=== PATIENT | female | born 1945 | race Caucasian/White ===

== ENCOUNTER 2018-02-09 10:52 | Emergency (ER) | payer MEDICARE, OTHER ==
[~2018-02-09] VITALS: Ht 157.5 cm; Wt 74.8 kg
[~2018-02-09 10:52] MED LIST: ASPIR 8181 MG PO; ATORVASTATIN CA20 MG PO; BENICAR20 MG PO; CHLORZOXAZONE500 MG PO; CYMBALTA60 MG PO; DEXILANT60 MG PO; FUROSEMIDE20 MG PO; LEVOTHYROXINE112 MCG PO; LYRICA200 MG PO; NORCO 10-325 T1 EACH PO; OS-CAL 500+D T1 EACH PO; PROAIR HFA INH8.5 GM INH; SINGULAIR10 MG PO; SYMBICORT 16010.2 GM INH; TRICOR145 MG PO; VITAMIN B-122000 MCG PO; VITAMIN D-32000 UNIT PO
--- OUTSIDE RECORDS SUMMARY | 2018-02-09 10:55 | XMS REPORT ---
Author Author [facility] Address Unknown Phone Unavailable Care Team Providers Care House Painter Name Role Phone AMELIA WILD Unavailable Unavailable Problems This patient has no known problems. Allergies, Adverse Reactions, Alerts This patient has no known allergies or adverse reactions. Medications This patient has no known medications. Results Test Description Test Time Test Comments Text Results Atomic Results Result Comments BASIC METABOLIC PANEL 2017-02-14 16:32:00 SODIUM (BEAKER) (test yfzt=495) 140 meq/L 136-145 POTASSIUM (BEAKER) (test huuh=731) 4.1 meq/L 3.5-5.1 Specimen slightly hemolyzed CHLORIDE (BEAKER) (test zpcz=515) 97 meq/L 98-107 CO2 (BEAKER) (test ajxh=080) 31 meq/L 22-29 BLOOD UREA NITROGEN (BEAKER) (test xqll=205) 43 mg/dL 7-21 CREATININE (BEAKER) (test hofp=731) 1.15 mg/dL 0.57-1.25 Specimen slightly hemolyzed GLUCOSE RANDOM (BEAKER) (test skas=966) 86 mg/dL 70-105 CALCIUM (BEAKER) (test cehu=859) 9.5 mg/dL 8.4-10.2 EGFR (BEAKER) (test mkbd=0344) 46 mL/min/1.73 sq m ESTIMATED GFR IS NOT ACCURATE CREATININE CLEARANCE IN PREDICTING GLOMERULAR FILTRATION RATE. ESTIMATED GFR IS NOT APPLICABLE FOR DIALYSIS PATIENTS. [id number] 15:39:00* Test Item Value Reference Range Comments HEMOGLOBIN (BEAKER) (test juxf=342) 12.3 GM/DL 12.0-15.0
--- OUTSIDE RECORDS SUMMARY | 2018-02-09 10:55 | XMS REPORT | Clinical Summary ---
Author Author [facility] Address Unknown Phone Unavailable Care Team Providers Care Dental Laboratory Manager Name Role Phone PCP Unavailable Allergies Active Allergy Reactions Severity Noted Date Comments Levofloxacin Rash, Other (See High 09/08/2013 Difficulty breathing Comments) Iodine And Iodide Rash Low 09/08/2013 Rash , hives Containing Products Current Medications Prescription Sig. Disp. Refills Start End Date Status Date aspirin 81 MG chewable Take 81 mg by mouth Active tablet nightly . atorvastatin (LIPITOR) 10 Take 20 mg by mouth Active MG tablet nightly . levothyroxine (SYNTHROID, Take 100 mcg by mouth Active LEVOTHROID) 112 MCG nightly . tablet SYMBICORT 160-4.5 Inhale 2 puffs by mouth 08/18/20 Active mcg/actuation inhaler via inhaler 2 (two) times 13 daily . dexlansoprazole 60 mg Take 60 mg by mouth Active capsule nightly . furosemide (LASIX) 20 MG Take 40 mg by mouth Active tablet nightly . albuterol HFA (VENTOLIN Inhale 1 puff by mouth Active HFA) 90 mcg/actuation via inhaler every 6 (six) inhaler hours as needed for Wheezing. rOPINIRole (REQUIP) 2 MG Take 4 mg by mouth Active tablet nightly . fluticasone (FLONASE) 50 2 sprays by Nasal route Active mcg/actuation nasal spray nightly . pregabalin (LYRICA) 200 Take 200 mg by mouth 2 Active MG capsule (two) times daily. CARISOPRODOL (SOMA ORAL) Take 1 tablet by mouth 2 Active (two) times daily . DOCUSATE CALCIUM (STOOL Take 1 capsule by mouth Active SOFTENER ORAL) as needed . cholecalciferol, vitamin Take 5,000 Units by mouth Active D3, 5,000 unit Tab once a week Every Friday . cholecalciferol, vitamin Take 2,000 Units by mouth Active D3, 2,000 unit Tab nightly. valsartan (DIOVAN) 160 MG Take 160 mg by mouth Active tablet nightly. HYDROcodone-acetaminophen Take 2 tablets by mouth Active (NORCO 10-325) 10-325 mg as needed for Pain. per tablet calcium carbonate-vitamin Take 1 tablet by mouth 2 02/15/20 Discontin D3 (CALCIUM-VITAMIN D) (two) times daily with 17 ued 500 mg(1,250mg) -200 unit breakfast and dinner. per tablet olmesartan (BENICAR) 20 Take 20 mg by mouth daily 02/15/20 Discontin MG tablet . 17 ued cyanocobalamin 2000 MCG Take 2,000 mcg by mouth 02/15/20 Discontin tablet daily. 17 ued predniSONE (DELTASONE) 10 Take 30mg for 3 days, 18 tablet 0 01/06/20 02/15/20 Discontin MG tablet 20mg for 3 days, then 16 17 ued 10mg for 3 days then stop. Active Problems Problem Noted Date Degenerative joint disease of thumb 02/17/2017 Cubital tunnel syndrome on left 02/17/2017 Acute carpal tunnel syndrome of left wrist 02/17/2017 Trigger finger of right hand 09/09/2016 Disorientation 01/02/2016 Asthma exacerbation 09/08/2013 Overview: GERD Hypothyroidism Encounters Date Type Specialty Care Team Description 04/04/2017 Refill Transplant Sydnie Phoenix MD 02/17/2017 Hospital Oscar Keane MD Encounter 02/17/2017 Procedure Pass 02/17/2017 Surgery Oscar Keane MD RELEASE,CARPAL TUNNEL 02/14/2017 [facility] Pre-Admission Testing Oscar Keane MD Asthma exacerbation Encounter 02/14/2017 Anesthesia Staci Mendieta MD Event 02/14/2017 Orders Only General Internal Medicine after 02/08/2017 Family History Medical History Relation Name Comments Depression Father Heart disease Father Hypertension Father Stroke Father Cancer Maternal Grandmother Heart disease Maternal Grandmother Cancer Mother Depression Mother Diabetes Mother Heart disease Mother Hypertension Mother Mental illness Paternal Grandfather COPD Sister Asthma Son Hypertension Son Relation Name Status Comments Father Maternal Grandmother Mother Paternal Grandfather Sister Son Social History Tobacco Use Types Packs/Day Years Used Date Never Smoker Smokeless Tobacco: Never Used Alcohol Use Drinks/Week oz/Week Comments No Sex Assigned at Date Recorded Not on file Last Filed Vital Signs Vital Sign Reading Time Taken Blood Pressure 139/60 02/17/2017 10:34 AM CDT Pulse 74 02/17/2017 10:34 AM CDT Temperature 36.7 C (98.1 F) 02/17/2017 10:49 AM CDT Respiratory Rate 16 02/17/2017 10:49 AM CDT Oxygen Saturation 93% 02/17/2017 10:49 AM CDT Inhaled Oxygen - - Concentration Weight 78.8 kg (173 lb 11.2 oz) 02/17/2017 6:17 AM CDT Height 157.5 cm (5' 2") 02/17/2017 6:17 AM CDT Body Mass Index 31.77 02/17/2017 6:17 AM CDT Plan of Treatment Not on file Procedures Procedure Name Priority Date/Time Associated Diagnosis Comments RELEASE,CUBITAL TUNNEL 02/17/2017 Carpal tunnel syndrome, 8:00 AM CDT left INJECTION,THERAPEUTIC 02/17/2017 Carpal tunnel syndrome, CARPAL TUNNEL 8:00 AM CDT left RELEASE,CARPAL TUNNEL 02/17/2017 Carpal tunnel syndrome, 8:00 AM CDT left after 02/08/2017 Results * Hemoglobin (02/14/2017 3:08 PM) Component Value Ref Range Hemoglobin 12.3 12.0 - 15.0 GM/DL Specimen Performing [place] [address] * ECG 12 lead (02/14/2017 3:07 PM) Specimen Performing Laboratory GE MUSE Narrative Ventricular Rate 73 BPM Atrial Rate 73 BPM P-R Interval 162 ms QRS Duration 88 ms Q-T Interval 418 ms QTC Calculation(Bazett) 460 ms P Sweeny 19 degrees R Sweeny -11 degrees T Sweeny 15 degrees Sinus rhythm with Premature atrial complexes with Aberrant conduction Minimal voltage criteria for LVH, may be normal variant Nonspecific ST and T wave abnormality Borderline ECG When compared with ECG of 02-JAN-2016 15:35, No significant change was found Confirmed by MD GENEVIEVE, GLORIA ([id number]) on 02/14/2017 5:21:27 PM Procedure Note Interface, External Ris In - 02/14/2017 5:21 PM CDT Ventricular Rate 73 BPM Atrial Rate 73 BPM P-R Interval 162 ms QRS Duration 88 ms Q-T Interval 418 ms QTC Calculation(Bazett) 460 ms P Sweeny 19 degrees R Sweeny -11 degrees T Sweeny 15 degrees Sinus rhythm with Premature atrial complexes with Aberrant conduction Minimal voltage criteria for LVH, may be normal variant Nonspecific ST and T wave abnormality Borderline ECG When compared with ECG of 02-JAN-2016 15:35, No significant change was found Confirmed by MD GENEVIEVE, GLORIA ([id number]) on 02/14/2017 5:21:27 PM * Basic Metabolic Panel (02/14/2017 3:07 PM) Component Value Ref Range Sodium 140 136 - 145 meq/L Potassium 4.1Comment: Specimen slightly hemolyzed 3.5 - 5.1 meq/L Chloride 97 (L) 98 - 107 meq/L CO2 31 (H) 22 - 29 meq/L BUN 43 (H) 7 - 21 mg/dL Creatinine 1.15Comment: Specimen slightly hemolyzed 0.57 - 1.25 mg/dL Glucose 86 70 - 105 mg/dL Calcium 9.5 8.4 - 10.2 mg/dL EGFR 46Comment: ESTIMATED GFR IS NOT ACCURATE mL/min/1.73 sq m CREATININE CLEARANCE IN PREDICTING GLOMERULAR FILTRATION RATE. ESTIMATED GFR IS NOT APPLICABLE FOR DIALYSIS PATIENTS. Specimen Performing Laboratory Blood [facility] [address] [address] after 02/08/2017
[2018-02-09] MEDS ORDERED: DEXAMETHASONE SOD PHOS 10 MG/1 ML VIAL INJ ONE (11:30)
[2018-02-09] MEDS ORDERED: HYDROCODONE/APAP 10MG-325MG TAB PO ONE (11:30)
[2018-02-09] MEDS ORDERED: KETOROLAC TROMETHAMINE 60 MG/2 ML VIAL IM ONE (11:30)
[2018-02-09] MEDS ORDERED: KETOROLAC TROMETHAMINE 60 MG/2 ML VIAL ONE ×2 (14:51→14:57)
[2018-02-09] MEDS ORDERED: HYDROCODONE/APAP 10MG-325MG TAB ONE ×2 (14:51→14:58)
[2018-02-09] MEDS ORDERED: DEXAMETHASONE SOD PHOS 10 MG/1 ML VIAL ONE ×2 (14:51→14:58)
== END 2018-02-09 15:25 | disposition home or self-care (01) ==
LOC: ER 10:52
DX: M54.42 Lumbago with sciatica, left side (principal); I10 Essential (primary) hypertension; J45.909 Unspecified asthma, uncomplicated; G89.29 Other chronic pain
CPT/HCPCS: 99282; J1100; J1885

== ENCOUNTER 2019-02-04 19:53 | Emergency (ER) | payer MEDICARE, OTHER ==
[~2019-02-04] VITALS: Ht 157.5 cm; Wt 75.3 kg
--- OUTSIDE RECORDS SUMMARY | 2019-02-04 19:57 | XMS REPORT | Clinical Summary ---
Author Author [facility] Address Unknown Phone Unavailable Care Team Providers Care Multiple Resaw Operator Name Role Phone Javy Gonzalez MD PCP Allergies Comments Active Allergy Reactions Severity Noted Date Iodine Hives 08/11/2018 Levofloxacin Shortness Of High 08/11/2018 Breath Medications End Date Status Medication Sig Dispensed Refills Start Date 09/24/2018 atorvastatin (LIPITOR) 20 Take 1 tablet 30 tablet 0 MG tablet (20 mg total) 8 by mouth nightly for 30 days. 08/27/2018 cefpodoxime (VANTIN) 200 Take 1 tablet 4 tablet 0 MG tablet (200 mg 8 total) by mouth 2 (two) times a day for 2 days. 09/24/2018 cyanocobalamin (VITAMIN Take 1 tablet 30 tablet 0 B-12) 1000 MCG tablet (1,000 mcg 8 total) by mouth daily for 30 days. 09/24/2018 docusate sodium (COLACE) Take 1 30 capsule 0 100 MG capsule capsule (100 8 mg total) by mouth daily for 30 days. 09/24/2018 DULoxetine (CYMBALTA) 60 Take 1 30 capsule 0 MG capsule capsule (60 8 mg total) by mouth daily for 30 days. 09/24/2018 fenofibrate (LOFIBRA) 160 Take 1 tablet 30 tablet 0 MG tablet (160 mg 8 total) by mouth daily for 30 days. 09/24/2018 ferrous sulfate 325 (65 Take 1 tablet 60 tablet 0 FE) MG tablet (325 mg 8 total) by mouth 2 (two) times a day with meals for 30 days. 09/24/2018 fluticasone (FLONASE) 50 2 sprays (100 15.8 mL 0 mcg/actuation nasal spray mcg total) by 8 Each Nare route daily as needed for rhinitis for up to 30 days. 09/24/2018 furosemide (LASIX) 20 mg Take 3 180 tablet 0 tablet tablets (60 8 mg total) by mouth 2 (two) times a day for 30 days. 09/25/2018 levothyroxine (SYNTHROID, Take 1 tablet 30 tablet 0 LEVOXYL) 100 mcg tablet (100 mcg 8 total) by mouth daily for 30 days. 09/24/2018 montelukast (SINGULAIR) Take 1 tablet 30 tablet 0 10 mg tablet (10 mg total) 8 by mouth nightly for 30 days. 09/25/2018 pantoprazole (PROTONIX) Take 1 tablet 30 tablet 0 40 MG EC tablet (40 mg total) 8 by mouth daily for 30 days. 09/24/2018 pregabalin (LYRICA) 200 Take 1 60 capsule 0 MG capsule capsule (200 8 mg total) by mouth 2 (two) times a day for 30 days. 09/24/2018 rOPINIRole (REQUIP) 4 MG Take 1 tablet 30 tablet 0 tablet (4 mg total) 8 by mouth nightly for 30 days. 09/24/2018 sennosides-docusate Take 2 60 tablet 0 sodium (SENNA WITH tablets by 8 DOCUSATE SODIUM) 8.6-50 mouth nightly mg per tablet as needed for constipation for up to 30 days. 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 Never 08/11/2018 How many drinks containing alcohol do you have on Not asked a typical day when you are drinking? How often do you have six or more drinks on one Not asked occasion? Sex Assigned at Date Recorded Not on file Industry Job Start Date Occupation Not on file Not on file Not on file Travel End Travel History Travel Start No recent travel history available. Last Filed Vital Signs Time Taken Vital Sign Reading 08/25/2018 7:21 AM ION IMPLANT MACHINE OPERATOR Blood Pressure 117/59 08/25/2018 7:21 AM ION IMPLANT MACHINE OPERATOR Pulse 68 08/25/2018 7:21 AM ION IMPLANT MACHINE OPERATOR Temperature 37 C (98.6 F) 08/25/2018 7:21 AM ION IMPLANT MACHINE OPERATOR Respiratory Rate 20 08/25/2018 7:21 AM ION IMPLANT MACHINE OPERATOR Oxygen Saturation 97% - Inhaled Oxygen - Concentration 08/11/2018 5:32 PM ION IMPLANT MACHINE OPERATOR Weight 75.8 kg (167 lb) 08/11/2018 5:32 PM ION IMPLANT MACHINE OPERATOR Height 157.5 cm (5' 2") 08/11/2018 5:32 PM ION IMPLANT MACHINE OPERATOR Body Mass Index 30.54 Plan of Treatment Health Maintenance Due Date Last Done Comments BREAST CANCER SCREENING 1994 COLON CANCER SCREENING 1994 SHINGLES VACCINES (#1) 1994 65+ PNEUMOCOCCAL VACCINE 2009 07/09/2016 (2 of 2 - PPSV23) INFLUENZA VACCINE 04/29/2019 PNEUMOCOCCAL Completed 07/09/2016 POLYSACCHARIDE VACCINE AGE 65 AND OVER Procedures Comments Procedure Name Priority Date/Time Associated Diagnosis ESTIMATED GFR Routine 08/25/2018 5:30 AM ION IMPLANT MACHINE OPERATOR THYROID STIMULATING Routine 08/25/2018 HORMONE 5:30 AM ION IMPLANT MACHINE OPERATOR T4, FREE Routine 08/25/2018 5:30 AM ION IMPLANT MACHINE OPERATOR T3, FREE Routine 08/25/2018 5:30 AM ION IMPLANT MACHINE OPERATOR BASIC METABOLIC PANEL Routine 08/25/2018 5:30 AM ION IMPLANT MACHINE OPERATOR ESTIMATED GFR Timed 08/24/2018 4:55 AM ION IMPLANT MACHINE OPERATOR HC COMPLETE BLD COUNT Timed 08/24/2018 W/AUTO DIFF 4:55 AM ION IMPLANT MACHINE OPERATOR BASIC METABOLIC PANEL Timed 08/24/2018 4:55 AM ION IMPLANT MACHINE OPERATOR ESTIMATED GFR Routine 08/23/2018 5:05 AM ION IMPLANT MACHINE OPERATOR MAGNESIUM LEVEL Routine 08/23/2018 5:05 AM ION IMPLANT MACHINE OPERATOR BASIC METABOLIC PANEL Routine 08/23/2018 5:05 AM ION IMPLANT MACHINE OPERATOR ESTIMATED GFR Routine 08/22/2018 4:48 AM ION IMPLANT MACHINE OPERATOR HC COMPLETE BLD COUNT Routine 08/22/2018 W/AUTO DIFF 4:48 AM ION IMPLANT MACHINE OPERATOR BASIC METABOLIC PANEL Routine 08/22/2018 4:48 AM ION IMPLANT MACHINE OPERATOR ESTIMATED GFR Routine 08/20/2018 5:00 AM ION IMPLANT MACHINE OPERATOR HEPATIC FUNCTION PANEL Routine 08/20/2018 5:00 AM ION IMPLANT MACHINE OPERATOR HC COMPLETE BLD COUNT Routine 08/20/2018 W/AUTO DIFF 5:00 AM ION IMPLANT MACHINE OPERATOR BASIC METABOLIC PANEL Routine 08/20/2018 5:00 AM ION IMPLANT MACHINE OPERATOR ESTIMATED GFR Timed 08/17/2018 4:42 AM ION IMPLANT MACHINE OPERATOR MAGNESIUM LEVEL Timed 08/17/2018 4:42 AM ION IMPLANT MACHINE OPERATOR HC COMPLETE BLD COUNT Timed 08/17/2018 W/AUTO DIFF 4:42 AM ION IMPLANT MACHINE OPERATOR BASIC METABOLIC PANEL Timed 08/17/2018 4:42 AM ION IMPLANT MACHINE OPERATOR ESTIMATED GFR Routine 08/16/2018 5:10 AM ION IMPLANT MACHINE OPERATOR HEPATIC FUNCTION PANEL Routine 08/16/2018 5:10 AM ION IMPLANT MACHINE OPERATOR HC COMPLETE BLD COUNT Routine 08/16/2018 W/AUTO DIFF 5:10 AM ION IMPLANT MACHINE OPERATOR BASIC METABOLIC PANEL Routine 08/16/2018 5:10 AM ION IMPLANT MACHINE OPERATOR HC COMPLETE BLD COUNT Routine 08/13/2018 W/AUTO DIFF 5:40 AM ION IMPLANT MACHINE OPERATOR TOTAL IRON BINDING Routine 08/13/2018 CAPACITY 5:40 AM ION IMPLANT MACHINE OPERATOR FERRITIN LEVEL Routine 08/13/2018 5:40 AM ION IMPLANT MACHINE OPERATOR VITAMIN B12 LEVEL Routine 08/13/2018 5:40 AM ION IMPLANT MACHINE OPERATOR THYROID STIMULATING Routine 08/13/2018 HORMONE 5:40 AM ION IMPLANT MACHINE OPERATOR T4, FREE Routine 08/13/2018 5:40 AM ION IMPLANT MACHINE OPERATOR T3, FREE Routine 08/13/2018 5:40 AM ION IMPLANT MACHINE OPERATOR MAGNESIUM LEVEL Routine 08/13/2018 5:40 AM ION IMPLANT MACHINE OPERATOR ESTIMATED GFR Routine 08/12/2018 4:47 AM ION IMPLANT MACHINE OPERATOR HC COMPLETE BLD COUNT Routine 08/12/2018 W/AUTO DIFF 4:47 AM ION IMPLANT MACHINE OPERATOR BASIC METABOLIC PANEL Routine 08/12/2018 4:47 AM ION IMPLANT MACHINE OPERATOR after 02/03/2018 Results * Estimated GFR (08/25/2018 5:30 AM ION IMPLANT MACHINE OPERATOR) Only the most recent of 8 results within the time period is included. Estimated GFR 49 (A) mL/min/1.73 m2 [facility] Comment: [facility] CatergoryUnitsInte rpretation G1 >=90 Normal or high G2 60-89Mildly decreased [id number] Mildly to moderately decreased [id number] Moderately to severely decreased G4 15-29Severely decreased G5 <15Kidney failure The eGFR was calculated using the Chronic Kidney Disease Epidemiology Collaboration (CKD-EPI) equation. Interpretation is based on recommendations of the National Kidney Foundation-Kidney Disease Outcomes Quality Initiative (NKF-KDOQI) published in 2014. Specimen Plasma specimen Performing Organization Address City/State/Zipcode Phone Number [facility] [address] [place] [address] PATHOLOGY AND GENOMIC MEDICINE [place] [id number] [place] * T3, free (08/25/2018 5:30 AM ION IMPLANT MACHINE OPERATOR) Only the most recent of 2 results within the time period is included. T3, free 1.83 (L) 2.18 - 3.98 pmol/L [facility] Specimen Plasma specimen Performing Organization Address City/[facility] Phone Number [facility] DEPARTMENT OF [address] [facility] [place] [address] PATHOLOGY AND GENOMIC MEDICINE [address] * Thyroid stimulating hormone (08/25/2018 5:30 AM ION IMPLANT MACHINE OPERATOR) Only the most recent of 2 results within the time period is included. TSH 0.55 0.27 - 4.20 uIU/mL [facility] Specimen Plasma specimen Performing Organization Address [facility] Phone Number [address] [place] [address] PATHOLOGY AND GENOMIC MEDICINE [address] * T4, free (08/25/2018 5:30 AM ION IMPLANT MACHINE OPERATOR) Only the most recent of 2 results within the time period is included. T4, free 1.67 0.90 - 1.70 ng/dL [facility] Specimen Plasma specimen Performing Organization Address [facility] Phone Number [address] [place] [address] PATHOLOGY AND GENOMIC MEDICINE [address] * Basic metabolic panel (08/25/2018 5:30 AM ION IMPLANT MACHINE OPERATOR) Only the most recent of 8 results within the time period is included. Sodium 140 135 - 150 mEq/L [facility] Potassium 3.8 3.5 - 5.0 mEq/L [facility] Chloride 92 (L) 98 - 112 mEq/L [facility] CO2 33 (H) 24 - 31 mmol/L [facility] Anion gap 15@ANIO 7 - 15 mEq/L [facility] BUN 36 (H) 7 - 18 mg/dL [facility] Creatinine 1.10 (H) 0.50 - 0.90 mg/dL [facility] Glucose 74 65 - 100 mg/dL [facility] Calcium 9.2 8.8 - 10.2 mg/dL [facility] Specimen Plasma specimen Performing Organization Address City/State/Zipcode Phone Number [facility] DEPARTMENT OF [address] [place] [address] PATHOLOGY AND GENOMIC MEDICINE [facility] [address] [place], [place] [id number] [place] [address] * CBC with platelet and differential (08/24/2018 4:55 AM ION IMPLANT MACHINE OPERATOR) Only the most recent of 7 results within the time period is included. WBC 6.6 4.2 - 11.0 k/uL [facility] RBC 4.05 4.04 - 5.86 m/uL [facility] HGB 9.7 (L) 11.5 - 15.3 g/dL [facility] HCT 32.4 (L) 34.0 - 45.0 % [facility] MCV 80.0 80.0 - 98.0 fL [facility] MCH 24.0 (L) 27.0 - 34.0 pg [facility] MCHC 29.9 (L) 31.5 - 36.5 g/dL [facility] RDW - SD 58.4 (H) 37.0 - 51.0 fL [facility] MPV 11.5 (H) 7.4 - 10.4 fL [facility] Platelet count 253 150 - 400 k/uL [facility] Nucleated RBC 0.00 /100 WBC [facility] Neutrophils 50.3 36.0 - 66.0 % [facility] Lymphocytes 35.3 24.0 - 44.0 % [facility] Monocytes 9.7 (H) 0.0 - 6.0 % [facility] Eosinophils 3.5 0.0 - 6.0 % [facility] Basophils 0.6 0.0 - 1.2 % [facility] Immature granulocytes 0.6 0.0 - 1.0 % [facility] Specimen Blood Performing Organization Address City/[facility] Cent[facility] Phone Number [facility] DEPARTMENT OF [address] [place] [address] PATHOLOGY AND GENOMIC MEDICINE [facility] [address] * Magnesium level (08/23/2018 5:05 AM ION IMPLANT MACHINE OPERATOR) Only the most recent of 3 results within the time period is included. Magnesium 1.90 1.60 - 2.40 mg/dL [facility] Specimen Plasma specimen Performing Organization Address City/[facility] Phone Number [place] [address] [place] [address] PATHOLOGY AND [facility] MEDICINE [place] [address] [address] * Hepatic function panel (08/20/2018 5:00 AM ION IMPLANT MACHINE OPERATOR) Only the most recent of 2 results within the time period is included. Albumin 3.4 (L) 3.5 - 5.0 g/dL [facility] Total bilirubin 0.3 0.2 - 1.2 mg/dL [facility] Bilirubin direct <0.2 0.0 - 0.4 mg/dL [facility] Alkaline phosphatase 59 0 - 104 U/L [facility] Protein 7.3 6.3 - 8.3 g/dL [facility] ALT 12 5 - 50 U/L [facility] AST 22 10 - 35 U/L [facility] Specimen Plasma specimen Performing Organization Address City/[facility]/Zipcode Phone Number [facility] DEPARTMENT [place] [address] [place] [address] PATHOLOGY AND [facility] MEDICINE [place] [address] [address] * Total iron binding capacity (08/13/2018 5:40 AM ION IMPLANT MACHINE OPERATOR) Iron level 34 (L) 37 - 148 ug/dL [facility] Iron binding capacity 444 271 - 474 ug/dL [facility] % Saturation 7.7 (L) 15.0 - 38.0 % [facility] Specimen Plasma specimen Performing Organization Address City/State/Zipcode Phone Number [facility] DEPARTMENT OF [address] [place] [phone] PATHOLOGY AND GENOMIC MEDICINE [facility] [address] * Ferritin level (08/13/2018 5:40 AM ION IMPLANT MACHINE OPERATOR) Ferritin level 40 13 - 150 ng/mL [facility] Specimen Serum Performing Organization Address City/[facility] Cent[facility]ode Phone Number [facility] DEPARTMENT [address] [place] [address] PATHOLOGY AND GENOMIC MEDICINE [place] [phone] * Vitamin B12 level (08/13/2018 5:40 AM ION IMPLANT MACHINE OPERATOR) Vitamin B12 249 231 - 931 pg/mL [facility] Comment: [facility] Significant overlap exists between normal and deficiency states. However, most patients with deficiencies will have Serum B12 <200 pg/mL. Specimen Serum Performing Organization Address City/[facility] Centercode Phone Number [facility] DEPARTMENT [address] [place] [phone] PATHOLOGY AND GENOMIC MEDICINE [address] after 02/03/2018 Insurance Payer Benefit Subscriber ID Type Phone Address Plan / Group MEDICARE MEDICARE xxxxxxxxxx Medicare [place] PART A AND B [employer] xxxxxxxxxx Commercial [employer] [place] Advance Directives Patient has advance care planning documents on file. For more information, jose e contact: [facility] [address] [place] [address]
--- OUTSIDE RECORDS SUMMARY | 2019-02-04 19:57 | XMS REPORT | Continuity of Care Document ---
Author Author [facility] Interface Address Unknown Phone Unavailable Problems Problem Status Onset Date Classification Date Reported Comments Source Medications Medication Details Route Status Patient Instructions Ordering Provider Order Date Source Albuterol Sulfate (Proair Hfa Inhaler*) 8.5 Gm Inh Every 6 Hours [facility] Aspirin (Aspir 81) 81 Mg Tablet.dr Weiner [facility] Atorvastatin Calcium 20 Mg Tablet Daily [facility] Budesonide/Formoterol Fumarate (Symbicort 160-4.5 Mcg Inhaler) 10.2 Gm Hfa.aer.ad Twice A Day [facility] Calcium Carbonate/Vitamin D3 (Os-Rosendo 500+D Tablet) 1 Each Tablet Bedtime [facility] Chlorzoxazone 500 Mg Tablet As Needed [facility] Cholecalciferol (Vitamin D3) (Vitamin D-3) 2,000 Unit Capsule Daily [facility] Cyanocobalamin (Vitamin B-12) (Vitamin B-12) 2,000 Mcg Tablet.er Daily [facility] Dexlansoprazole (Dexilant) 60 Mg Cap. Daily Active THERAPEUTIC INTERCHANGE WITH PROTONIX PER [facility] Duloxetine Hcl (Cymbalta) 60 Mg Capsule.dr Weiner [facility] Fenofibrate (Tricor) 145 Mg Tab Bedtime [facility] Furosemide 20 Mg Tablet Daily [facility] Hydrocodone Bit/Acetaminophen ([place] 10-325 Tablet) 1 Each Tablet Every 6 Hours [facility] Levothyroxine Sodium 112 Mcg Tablet Daily [facility] Montelukast Sodium (Singulair) 10 Mg Tablet Bedtime Active [facility] Olmesartan Medoxomil (Benicar) 20 Mg Tablet Bedtime Active [facility] Pregabalin (Lyrica) 200 Mg Capsule Three Times A Day Active [facility] Allergies, Adverse Reactions, Alerts Substance Category Reaction Severity Reaction type Status Date Reported Comments Source iodine SWELLING/HIVES Allergy to Substance Active 05/03/2015 [facility] Immunizations Immunization Date Given Site Status Last Updated Comments Source Results Order Name Results Value Reference Range Date Interpretation Comments Source Vital Signs Vital Sign Value Date Comments Source Encounters Location Location Details Encounter Type Encounter Number Reason For Visit Attending Provider ADM Date DC Date Status Source Departed Emergency Room [id number] CIELO RYAN MD 02/09/2018 02/09/2018 [facility] Procedures Procedure Code Date Perfomer Comments Source
--- NOTE | 2019-02-04 20:16 | NUR ---
DR DEMETRIO CROSS OFFICE
[2019-02-04 20:21] LABS: BASOPHILS % 0.5 % (0.0-1.0); EOSINOPHILS # (AUTO) 0.3 (0.0-0.4); EOSINOPHILS % 4.3 % (0.0-6.0); HEMATOCRIT 26.6 % (34.2-44.1); HEMOGLOBIN 8.5 g/dL (12.0-16.0); LYMPHOCYTES # (AUTO) 1.3 (1.0-3.2); LYMPHOCYTES % 16.5 % (18.0-39.1); MEAN CORPUSCULAR HEMOGLOBIN 28.1 pg (28-32); MEAN CORPUSCULAR VOLUME 87.8 fL (81-99); MONOCYTES # (AUTO) 0.7 (0.2-0.8); MONOCYTES % 8.9 % (4.4-11.3); NEUTROPHILS # (AUTO) 5.4 (2.1-6.9); NEUTROPHILS % 68.9 % (38.7-80.0); PLATELET COUNT 370 x10e3/uL (140-360); RED BLOOD COUNT 3.03 x10e6/uL (3.6-5.1); RED CELL DISTRIBUTION WIDTH 20.4 % (11.7-14.4)
[2019-02-04 20:33] LABS: INR 0.88; PROTHROMBIN TIME 12.4 seconds (11.9-14.5)
[2019-02-04 20:34] LABS: PARTIAL THROMBOPLASTIN TIME 33.2 seconds (23.8-35.5)
[2019-02-04 20:43] LABS: ALANINE AMINOTRANSFERASE 11 IU/L (0-55); ALBUMIN 2.9 g/dL (3.5-5.0); ALBUMIN/GLOBULIN RATIO 0.9 (0.8-2.0); ALKALINE PHOSPHATASE 74 IU/L (40-150); ANION GAP 11.7 mmol/L (8-16); BLOOD UREA NITROGEN 15 mg/dL (7-26); BUN/CREATININE RATIO 21 (6-25); CALCIUM 8.8 mg/dL (8.4-10.2); CARBON DIOXIDE 23 mmol/L (22-29); CHLORIDE 102 mmol/L (98-107); CREATININE, SERUM 0.73 mg/dL (0.57-1.11); EST GLOMERULAR FILTRATION RATE > 60 ML/MIN (60-); GLUCOSE 119 mg/dL (74-118); POTASSIUM 3.7 mmol/L (3.5-5.1); SODIUM 133 mmol/L (136-145)
[2019-02-04 21:06] VITALS: BP 150/70
== END 2019-02-04 21:35 ==
LOC: ER 19:53
DX: D50.0 Iron deficiency anemia secondary to blood loss (chronic) (principal); I10 Essential (primary) hypertension; J45.909 Unspecified asthma, uncomplicated; M54.9 Dorsalgia, unspecified; G89.29 Other chronic pain
CPT/HCPCS: 36415; 80053; 82270; 85025; 85610; 85730; 86850; 86870; 86880; 86900; 86905; 99001; 99283

== ENCOUNTER 2019-06-24 19:07 | Inpatient (IN) | payer MEDICARE, OTHER ==
[~2019-06-24] VITALS: Ht 157.5 cm; Wt 78.5 kg
--- OUTSIDE RECORDS SUMMARY | 2019-06-24 19:11 | XMS REPORT | Continuity of Care Document ---
Author Author [facility] Organization [facility] Address Unknown Phone Unavailable Care Team Providers Care Wire Drawer Name Role Phone [facility] Information Exchange Unavailable Unavailable Problems No Data Provided for This Section Medications Medication Details Route Status Patient Instructions Ordering Provider Order Date Source Albuterol Sulfate (Proair Hfa Inhaler*) 8.5 Gm Inh Every 6 Hours [facility] Aspirin (Aspir 81) 81 Mg Tablet. Daily [facility] Atorvastatin Calcium 20 Mg Tablet Daily [facility] Budesonide/Formoterol Fumarate (Symbicort 160-4.5 Mcg Inhaler) 10.2 Gm Hfa.aer.ad Twice A Day [facility] Calcium Carbonate/Vitamin D3 (Os-Rosendo 500+D Tablet) 1 Each Tablet Bedtime [facility] Chlorzoxazone 500 Mg Tablet As Needed [facility] Cholecalciferol (Vitamin D3) (Vitamin D-3) 2,000 Unit Capsule Daily [facility] Cyanocobalamin (Vitamin B-12) (Vitamin B-12) 2,000 Mcg Tablet.er Daily [facility] Dexlansoprazole (Dexilant) 60 Mg Cap. Daily Active THERAPEUTIC INTERCHANGE WITH PROTONIX PER [facility] Duloxetine Hcl (Cymbalta) 60 Mg Capsule. Daily [facility] Fenofibrate (Tricor) 145 Mg Tab Bedtime [facility] Furosemide 20 Mg Tablet Daily [facility] Hydrocodone Bit/Acetaminophen ([place] 10-325 Tablet) 1 Each Tablet Every 6 Hours [facility] Levothyroxine Sodium 112 Mcg Tablet Daily [facility] Montelukast Sodium (Singulair) 10 Mg Tablet Bedtime Active [facility] Olmesartan Medoxomil (Benicar) 20 Mg Tablet Bedtime Active [facility] Pregabalin (Lyrica) 200 Mg Capsule Three Times A Day Active [facility] Allergies, Adverse Reactions, Alerts Substance Category Reaction Severity Reaction type Status Date Reported Comments Source iodine SWELLING/HIVES Allergy to Substance Active 05/03/2015 [facility] Immunizations No Data Provided for This Section Results No Data Provided for This Section Pathology Reports No Data Provided for This Section Diagnostic Reports No Data Provided for This Section Consultation Notes No Data Provided for This Section Discharge Summaries No Data Provided for This Section History and Physicals No Data Provided for This Section Vital Signs No Data Provided for This Section Encounters Location Location Details Encounter Type Encounter Number Reason For Visit Attending Provider ADM Date DC Date Status Source Departed Emergency Room [id number] CIELO RYAN MD 02/09/2018 02/09/2018 [facility] Procedures No Data Provided for This Section Assessment and Plan No Data Provided for This Section Plan of Care Plan of Care Date Source Discharge Date 02/09/18 3:25pm Disposition HOME, SELF-CARE Condition at Discharge Stable Instructions/Education Provided Sciatica Forms Provided Work/School Excuse Prescriptions See Medication Section Referrals HAROLDO OLIVER MD Address: [address] [id number] DANIEL LING MD Address: [address] [place] [id number] Additional Instructions/Education 1. follow up with your doctor and orthopedic doctor 2. return to ed as needed 02/09/2018 [facility] Social History Social History Date Source No social history information available. 02/09/2018 [facility] Family History No Data Provided for This Section Advance Directives Order Name Results Value Date Source Advance Directives Advance Directives Directive Response Recorded Date/Time Does the patient have an advance directive? No 02/09/18 1:28pm If yes, is advance directive on file with [facility]? No 02/09/18 1:28pm If not on file with [facility] will patient provide a copy? No 02/09/18 1:18pm Do you have a Directive to Physician? No 02/09/18 1:18pm Do you have a Medical Power of Code Enforcement Officer? No 02/09/18 1:18pm Do you have an out of hospital Do Not Resuscitate Order? No 02/09/18 1:18pm Do you have any special needs we should be aware of? No 02/09/18 1:18pm Do you have a support person here with you today? Yes 02/09/18 1:28pm Did patient receive Notice of Privacy Practices? Yes 02/09/18 1:18pm Did patient receive patient rights and responsibilities? Yes 02/09/18 1:18pm 02/09/2018 [facility] Functional Status No Data Provided for This Section
[2019-06-24 20:19] LABS: BASOPHILS % 0.2 % (0.0-1.0); EOSINOPHILS # (AUTO) 0.1 (0.0-0.4); EOSINOPHILS % 0.9 % (0.0-6.0); HEMATOCRIT 24.9 % (34.2-44.1); HEMOGLOBIN 7.5 g/dL (12.0-16.0); LYMPHOCYTES % 21.8 % (18.0-39.1); MEAN CORPUSCULAR HEMOGLOBIN 22.8 pg (28-32); MEAN CORPUSCULAR HGB CONC 30.1 g/dL (31-35); MEAN CORPUSCULAR VOLUME 75.7 fL (81-99); MONOCYTES # (AUTO) 0.6 (0.2-0.8); MONOCYTES % 6.7 % (4.4-11.3); NEUTROPHILS # (AUTO) 6.4 (2.1-6.9); NEUTROPHILS % 69.5 % (38.7-80.0); PLATELET COUNT 476 x10e3/uL (140-360); RED BLOOD COUNT 3.29 x10e6/uL (3.6-5.1); RED CELL DISTRIBUTION WIDTH 17.6 % (11.7-14.4)
--- NOTE | 2019-06-24 20:31 | Diagnostic Imaging Report ---
Frontal and lateral views of the chest. HISTORY: Congestive heart failure, edema at the bilateral lower extremities COMPARISON: None available. DISCUSSION: Lungs: Mild prominence of the pulmonary tissue markings. No evidence of a consolidative pneumonia or pulmonary alveolar edema. Pleura: No pleural effusion or pneumothorax. Heart and mediastinum: The cardiac silhouette appear(s) within normal limits. Mild prominence of the central pulmonary vasculature. Bones and soft tissues: Partially visualized extensive thoracolumbar fixation hardware and two level vertebral augmentation. IMPRESSION: Prominence of the central pulmonary vasculature and interstitial markings is likely accentuated by technique and the phase of respiration; however, this could reflect mild pulmonary vascular congestion and interstitial edema given the provided history. Signed by: Dr. Chano Mulligan D.O., M.M.M. on 06/24/2019 8:27 PM
[2019-06-24 20:39] LABS: ALBUMIN 2.6 g/dL (3.5-5.0); ALBUMIN/GLOBULIN RATIO 0.6 (0.8-2.0); CALCIUM 8.9 mg/dL (8.4-10.2); CREATININE, SERUM 1.08 mg/dL (0.57-1.11)
[2019-06-24 20:45] LABS: CREATINE KINASE MB 1.3 ng/mL (0-5.0)
[2019-06-24] MEDS ORDERED: FUROSEMIDE INJ 10 MG/ML 4 ML VIAL IV ONE (21:15)
[2019-06-24] MEDS ORDERED: ASPIRIN 81 MG CHEW TAB PO ONE (21:30)
[2019-06-24] MEDS ORDERED: PANTOPRAZOLE SO40 MG PO (21:37)
[2019-06-24] MEDS ORDERED: MONTELUKAST SOD10 MG PO (21:37)
[2019-06-24] MEDS ORDERED: LASIX20 MG PO (21:38)
[2019-06-24] MEDS ORDERED: GABAPENTIN300 MG PO (21:38)
--- OUTSIDE RECORDS SUMMARY | 2019-06-24 21:38 | XMS REPORT | Continuity of Care Document ---
Author Author [facility] Organization [facility] Address Unknown Phone Unavailable Care Team Providers Care Welder Machine Operator Name Role Phone [facility] Information Exchange Unavailable Unavailable Problems No Data Provided for This Section Medications Medication Details Route Status Patient Instructions Ordering Provider Order Date Source Albuterol Sulfate (Proair Hfa Inhaler*) 8.5 Gm Inh Every 6 Hours [facility] Aspirin (Aspir 81) 81 Mg Tablet. Daily [facility] Atorvastatin Calcium 20 Mg Tablet Daily [facility] Budesonide/Formoterol Fumarate (Symbicort 160-4.5 Mcg Inhaler) 10.2 Gm Hfa.aer.ad Twice A Day [facility] Calcium Carbonate/Vitamin D3 (Os-Rosendo 500+D Tablet) 1 Each Tablet Bedtime [facility] Chlorzoxazone 500 Mg Tablet As Needed [facility] Cholecalciferol (Vitamin D3) (Vitamin D-3) 2,000 Unit Capsule Daily [facility] Cyanocobalamin (Vitamin B-12) (Vitamin B-12) 2,000 Mcg Tablet.er Daily [facility] Dexlansoprazole (Dexilant) 60 Mg Cap. Daily Active THERAPEUTIC INTERCHANGE WITH PROTONIX PER [facility] Duloxetine Hcl (Cymbalta) 60 Mg Capsule. Daily [facility] Fenofibrate (Tricor) 145 Mg Tab Bedtime [facility] Furosemide 20 Mg Tablet Daily [facility] Hydrocodone Bit/Acetaminophen ([place] 10-325 Tablet) 1 Each Tablet Every 6 Hours [facility] Levothyroxine Sodium 112 Mcg Tablet Daily [facility] Montelukast Sodium (Singulair) 10 Mg Tablet Bedtime Active [facility] Olmesartan Medoxomil (Benicar) 20 Mg Tablet Bedtime Active [facility] Pregabalin (Lyrica) 200 Mg Capsule Three Times A Day Active [facility] Allergies, Adverse Reactions, Alerts Substance Category Reaction Severity Reaction type Status Date Reported Comments Source iodine SWELLING/HIVES Allergy to Substance Active 05/03/2015 [facility] Immunizations No Data Provided for This Section [...] DC Date Status Source Departed Emergency Room [id number] CIELO RYAN MD 02/09/2018 02/09/2018 [facility] Procedures No Data Provided for This Section Assessment and Plan No Data Provided for This Section Plan of Care Plan of Care Date Source Discharge Date 02/09/18 3:25pm Disposition HOME, SELF-CARE Condition at Discharge Stable Instructions/Education Provided Sciatica Forms Provided Work/School Excuse Prescriptions See Medication Section Referrals HAROLDO OLIVER MD Address: [address] [phone] DANIEL LING MD Address: [address] [place] [phone] Additional Instructions/Education 1. follow up with your doctor and orthopedic doctor 2. return to ed as needed 02/09/2018 [facility] Social History Social History Date Source No social history information available. 02/09/2018 [facility] Family History No Data Provided for This Section Advance Directives Order Name Results Value Date Source Advance Directives Advance Directives Directive Response Recorded Date/Time Does the patient have an advance directive? No 02/09/18 1:28pm If yes, is advance directive on file with [facility]? No 02/09/18 1:28pm If not on file with [facility] will patient provide a copy? No 02/09/18 1:18pm Do you have a Directive to Physician? No 02/09/18 1:18pm Do you have a Medical Power of Salon Manager? No 02/09/18 1:18pm Do you have an [...] rights and responsibilities? Yes 02/09/18 1:18pm 02/09/2018 [facility] Functional Status No Data Provided for This Section
--- OUTSIDE RECORDS SUMMARY | 2019-06-24 21:38 | XMS REPORT | Clinical Summary ---
Author Author SIRI XplornetSt. Luke'S Boise Medical CenterSubtext [facility] CenterBioWizardSe[facility] Address Unknown Phone Unavailable Care Team Providers Care Jig Builder Name Role Phone Javy Gonzalez MD PCP Unavailable Allergies Comments Active Allergy Reactions Severity Noted Date Topical only Iodine And Iodide Rash Low 09/08/2013 Containing Products Difficulty breathing Levofloxacin Rash, Other High 09/08/2013 (See Comments) Medications End Date Status Medication Sig Dispensed Refills Start Date Active SYMBICORT 160-4.5 Inhale 2 0 mcg/actuation inhaler puffs by 3 mouth via inhaler 2 (two) times daily . Active rOPINIRole (REQUIP) 2 MG Take 4 mg by 0 tablet mouth nightly . Active fluticasone (FLONASE) 50 2 sprays by 0 mcg/actuation nasal spray Nasal route nightly . Active DULoxetine (CYMBALTA) 60 Take 60 mg by 0 MG capsule mouth daily. Active fenofibrate (TRICOR) 145 Take 145 mg 0 MG tablet by mouth daily. Active atorvastatin (LIPITOR) 20 Take 20 mg by 0 MG tablet mouth daily. Active montelukast (SINGULAIR) Take 10 mg by 0 10 mg tablet mouth nightly. Active albuterol HFA (PROAIR Inhale 1 0 HFA) 90 mcg/actuation Inhaler by inhaler mouth via inhaler every 6 (six) hours as needed. Active levothyroxine (SYNTHROID, Take 100 mcg 0 LEVOTHROID) 100 MCG by mouth 8 tablet daily. Active lidocaine (LIDODERM) 5 % Place 2 30 patch 0 patch patches onto 9 the skin daily Remove & Discard patch within 12 hours or as directed by MD. Active enoxaparin (LOVENOX) 40 Inject 0.4 0 mg/0.4 mL Syrg mLs (40 mg 9 total) subcutaneousl y daily. Active pantoprazole (PROTONIX) Take 1 tablet 0 40 MG tablet (40 mg total) 9 by mouth daily. 12/25/2019 Active senna (SENOKOT) 8.6 mg Take 1 tablet 0 tablet (8.6 mg 9 total) by mouth every night as needed for Constipation. Active acetaminophen (TYLENOL) Take 650 mg 0 325 MG tablet by mouth every 6 (six) hours as needed for Pain. Active simethicone (MYLICON) 80 Take 80 mg by 0 MG chewable tablet mouth every 6 (six) hours as needed for Flatulence. Active oxybutynin (DITROPAN) 5 Take 5 mg by 0 MG tablet mouth 3 (three) times daily. Active mirabegron (MYRBETRIQ) 25 Take 1 tablet 0 mg Tb24 ER tablet (25 mg total) 9 by mouth daily. 01/15/2020 Active hydrALAZINE (APRESOLINE) Take 1 tablet 0 50 MG tablet (50 mg total) 9 by mouth every 8 (eight) hours. Active tamsulosin (FLOMAX) 0.4 Take 1 0 mg Cap 24 hr capsule capsule (0.4 9 mg total) by mouth 2 (two) times daily. 01/14/2020 Active gabapentin (NEURONTIN) Take 1 0 300 MG capsule capsule (300 9 mg total) by mouth 3 (three) times daily. 01/30/2020 Active senna-docusate (SENOKOT Take 1 tablet 60 tablet 0 S) 8.6-50 mg per tablet by mouth 2 9 (two) times daily. 01/30/2020 Active losartan (COZAAR) 100 MG Take 1 tablet 0 tablet (100 mg 9 total) by mouth daily. Active vancomycin/0.9 % sod Inject 250 0 chloride (VANCOMYCIN IN mLs (1,500 mg 9 SODIUM CHLORIDE 0.9%, total) NS,) 1.5 gram/250 mL Soln intravenously daily Until 03/03/19. Active famotidine (PEPCID) 20 MG Take 1 tablet 0 tablet (20 mg total) 9 by mouth daily. Active cefTRIAXone (ROCEPHIN) Inject 2 g 0 MBP 2 g in 100 mL NS intravenously 9 every 12 (twelve) hours Through 03/03/19. 12/12/2018 Discontinued dexlansoprazole 60 mg Take 60 mg by 0 capsule mouth nightly . 01/14/2019 Discontinued pregabalin (LYRICA) 200 Take 200 mg 0 MG capsule by mouth 3 (three) times daily . 12/12/2018 Discontinued DOCUSATE CALCIUM (STOOL Take 1 0 SOFTENER ORAL) capsule by mouth as needed . 11/19/2018 Discontinued mirabegron (MYRBETRIQ) 50 Take by mouth 0 mg Tb24 ER tablet daily. 11/19/2018 Discontinued potassium chloride SA Take 20 mEq 0 (K-DUR,KLOR-CON) 20 MEQ by mouth tablet daily. 08/06/2018 Discontinued acetaminophen (TYLENOL) Take 2 30 tablet 0 325 MG tablet tablets (650 8 mg total) by mouth every 6 (six) hours as needed for up to 360 days. 06/27/2018 diazePAM (VALIUM) 5 MG Take 1 tablet 30 tablet 0 tablet (5 mg total) 8 by mouth every 6 (six) hours as needed for Anxiety for up to 10 days. Max Daily Amount: 20 mg 08/06/2018 Discontinued furosemide (LASIX) 20 MG Take 1 tablet 20 tablet 0 tablet (20 mg total) 8 by mouth daily. 06/27/2018 HYDROcodone-acetaminophen Take 1 tablet 30 tablet 0 (NORCO 5-325) 5-325 mg by mouth 8 per tablet every 6 (six) hours as needed for up to 10 days. Max Daily Amount: 4 tablets 06/27/2018 vancomycin (VANCOCIN) Inject 1,000 0 1000 mg in NS 250 mL mg 8 (V2B) IVPB intravenously daily for 10 days. 08/11/2018 Discontinued cefdinir (OMNICEF) 300 MG Take 1 14 capsule 0 capsule capsule (300 8 mg total) by mouth 2 (two) times daily for 7 days. 08/13/2018 cefdinir (OMNICEF) 300 MG Take 1 4 capsule 0 capsule capsule (300 8 mg total) by mouth every 12 (twelve) hours for 2 days. 01/08/2019 Discontinued mirabegron (MYRBETRIQ) 25 Take 1 tablet 0 mg Tb24 ER tablet (25 mg total) 9 by mouth daily. 11/24/2018 cefTRIAXone (ROCEPHIN) Inject 2 g 0 MBP 2 g in 100 mL NS intravenously 9 daily for 4 days. 01/08/2019 Discontinued cyclobenzaprine Take 1 tablet 30 tablet 0 (FLEXERIL) 10 MG tablet (10 mg total) 9 by mouth 3 (three) times daily as needed for Muscle spasms. 12/12/2018 Discontinued ferrous sulfate 325 (65 Take 1 tablet 0 FE) MG tablet (325 mg 9 total) by mouth 2 (two) times daily. 12/25/2018 Discontinued losartan (COZAAR) 25 MG Take 1 tablet 0 tablet (25 mg total) 9 by mouth daily. 12/12/2018 Discontinued ondansetron (ZOFRAN) 4 Inject 2 mLs 20 mL 0 mg/2 mL injection (4 mg total) 9 intravenously every 8 (eight) hours as needed. 12/12/2018 Discontinued polyethylene glycol Take 17 g by 14 each 0 (GLYCOLAX) 17 gram packet mouth 2 (two) 9 times daily. 12/12/2018 Discontinued senna (SENOKOT) 8.6 mg Take 1 tablet 0 tablet (8.6 mg 9 total) by mouth every night as needed for Constipation. 11/30/2018 HYDROcodone-acetaminophen Take 1 tablet 30 tablet 0 (NORCO 5-325) 5-325 mg by mouth 9 per tablet every 4 (four) hours as needed for Pain for up to 10 days. Max Daily Amount: 6 tablets 12/25/2018 Discontinued cefTRIAXone (ROCEPHIN) Inject 2 g 0 MBP 2 g in 100 mL NS intravenously 9 every 12 (twelve) hours. 01/01/2019 ondansetron (ZOFRAN-ODT) Take 1 tablet 20 tablet 0 4 MG disintegrating (4 mg total) 9 tablet by mouth every 8 (eight) hours as needed for up to 7 days. 01/04/2019 oxyCODONE-acetaminophen Take 1 tablet 30 tablet 0 (PERCOCET) 10-325 mg per by mouth 9 tablet every 4 (four) hours as needed for up to 10 days. Max Daily Amount: 6 tablets 12/28/2018 polyethylene glycol Take 17 g by 14 each 0 (GLYCOLAX) 17 gram packet mouth 2 (two) 9 times daily for 3 days. 01/30/2019 Discontinued sodium chloride 0.9%, NS, 5 mLs by 5 mL 0 injection Intra-Cathete 9 r route as needed (for PICC Lines). 01/30/2019 Discontinued sodium chloride 0.9%, NS, 5 mLs by 5 mL 0 injection Intra-Cathete 9 r route every 8 (eight) hours. 01/30/2019 Discontinued cefTRIAXone (ROCEPHIN) Inject 2 g 0 MBP 2 g in 100 mL NS intravenously 9 every 12 (twelve) hours Through 02/03/19. 01/14/2019 Discontinued baclofen (LIORESAL) 10 MG Take 10 mg by 0 tablet mouth 3 (three) times daily. 01/14/2019 Discontinued gabapentin (NEURONTIN) Take 800 mg 0 800 MG tablet by mouth 3 (three) times daily. 01/14/2019 Discontinued losartan (COZAAR) 25 MG Take 25 mg by 0 tabletIndications: mouth daily. hypertension, hold for BP less than 110/60 01/30/2019 Discontinued oxybutynin (DITROPAN-XL) Take 5 mg by 0 5 MG 24 hr mouth daily. tabletIndications: essential hypertension 01/30/2019 Discontinued oxyCODONE-acetaminophen Take 1 tablet 0 (PERCOCET) 10-325 mg per by mouth tablet every 4 (four) hours as needed for Pain. 01/14/2019 Discontinued methocarbamol (ROBAXIN) Take 500 mg 0 500 MG tabletIndications: by mouth 2 muscle spasm (two) times daily. 01/30/2019 Discontinued cyclobenzaprine Take 1 tablet 30 tablet 0 (FLEXERIL) 10 MG tablet (10 mg total) 9 by mouth 3 (three) times daily as needed for Muscle spasms for up to 10 days. 01/30/2019 Discontinued losartan (COZAAR) 100 MG Take 1 tablet 0 tablet (100 mg 9 total) by mouth daily. 01/30/2019 Discontinued fluconazole (DIFLUCAN) Take 1 tablet 0 200 MG tablet (200 mg 9 total) by mouth daily for 7 days. 01/30/2019 Discontinued vancomycin (VANCOCIN) Inject 1,000 0 1000 mg IV in NS 100 ML mg 9 MBP intravenously daily. 02/09/2019 HYDROcodone-acetaminophen Take 1 tablet 30 tablet 0 (NORCO 5-325) 5-325 mg by mouth 9 per tablet every 4 (four) hours as needed for up to 10 days. Max Daily Amount: 6 tablets 02/09/2019 methocarbamol (ROBAXIN) Take 1 tablet 50 tablet 0 750 MG tablet (750 mg 9 total) by mouth 4 (four) times daily for 10 days. 02/03/2019 polyethylene glycol Take 17 g by 14 each 0 (GLYCOLAX) 17 gram packet mouth daily 9 for 3 days. Active Problems Problem Noted Date Osteomyelitis of thoracic region 01/20/2019 Paraplegia, incomplete 01/20/2019 Weakness generalized 01/19/2019 Discitis 01/10/2019 Altered mental status 01/07/2019 Lumbar back pain 11/08/2018 Gait instability 08/09/2018 Vertigo 08/05/2018 UTI (urinary tract infection) 08/05/2018 Head injury 08/05/2018 Postoperative wound infection, initial encounter 06/12/2018 Fever, unspecified fever cause 06/05/2018 Kyphoscoliosis 05/12/2018 Spinal cord compression 05/12/2018 Intervertebral thoracic disc disorder with myelopathy, thoracic region 05/12/2018 Sagittal plane imbalance 05/12/2018 Degenerative joint disease of thumb 02/17/2017 Cubital tunnel syndrome on left 02/17/2017 Acute carpal tunnel syndrome of left wrist 02/17/2017 Trigger finger of right hand 09/09/2016 Disorientation 01/02/2016 Asthma exacerbation 09/08/2013 Overview: GERD Hypothyroidism Encounters Care Team Description Date Type Specialty Miriam Fine, ENGINEER GE[employer]ORAT[employer] S/P spinal fusion; Osteomyelitis, unspecified site, unspecified type ([facility]) 04/26/2019 Hospital Radiology Encounter Igwala, Miriam Chinedum, ENGINEER GEOPH[employer]ORATORY S/P spinal fusion (Primary Dx); Osteomyelitis, unspecified site, unspecified type (HCC); Mid back pain 04/26/2019 Outside Orders Central Scheduling Mane, Lori HENRIETTA Austin 01/20/2019 Anesthesia Event Emilio Smith MD LAMINECTOMY,THORACIC W/FUSION 01/20/2019 Surgery Christo Sawyer MD 01/20/2019 Anesthesia Event Emilio Smith MD PROCEDURE DONE OUTSIDE OR 01/20/2019 Surgery 01/20/2019 Orders Only General Internal Medicine Byron Gray MD Neason, Chau Le, MD Damani, Rahul Hareshkumar, MD Varughese, Roy, MD Ropper, Alexander Eli, MD Weakness generalized (Primary Dx); Essential hypertension; Hyperlipidemia, unspecified hyperlipidemia type; Mild intermittent asthma without complication; Acute paraplegia (HCC); Spinal cord compression (HCC); Epidural abscess; Discitis of thoracic region; Discitis, unspecified spinal region; Impaired mobility and ADLs; Gait instability; Lumbar back pain; Osteomyelitis of thoracic region (HCC); Decreased functional activity tolerance 01/19/2019 [facility] General Internal Medicine - Encounter 01/30/2019 01/19/2019 Travel 01/10/2019 Travel 01/08/2019 Travel Mohit Wade MD Kazim, MD Juan Chowdhury Jamuna V., MD Altered mental status, unspecified altered mental status type (Primary Dx); Urinary tract infection without hematuria, site unspecified 01/07/2019 Hospital Cardiology - Encounter 01/15/2019 01/07/2019 Travel Zeus Deng MD Yoon, Alyssa Hyunna, MD Kazim, Pepper Ng MD Fever, unspecified fever cause (Primary Dx); Midline low back pain, unspecified chronicity, with sciatica presence unspecified; Weakness 12/12/2018 Hospital General Internal Medicine - Encounter 12/25/2018 12/12/2018 Orders Only General Internal Medicine 12/12/2018 Travel Chauncey Melendez MD Massumi, MD Maggie Rubio, MD Kishan Davis, Hernandez Bedoya MD Lumbar back pain (Primary Dx) 11/08/2018 Hospital General Internal Medicine - Encounter 11/20/2018 11/08/2018 Travel Miriam Fine, ENGINEER GEOPHYSICAL [employer]ORATORY S/P spinal fusion 10/26/2018 Hospital Radiology Encounter Miriam Fine, ENGINEER GE[employer]ORATORY S/P spinal fusion (Primary Dx) 10/26/2018 Outside Orders 08/06/2018 Travel Lester Sandoval MD Yoon, MD Sachin Hernandez, Pepper Ng MD Vertigo (Primary Dx); Urinary tract infection without hematuria, site unspecified; Injury of head, initial encounter 08/05/2018 Hospital Cardiology - Encounter 08/11/2018 08/05/2018 Orders Only General Internal Medicine 08/05/2018 Travel after 06/23/2018 Immunizations Name Dates Previously Given Next Due Influenza High Dose 08/08/2018 Preservative Free IM Family History Medical History Relation Name Comments Depression Father Heart disease Father Hypertension Father Stroke Father Cancer Maternal Grandmother Heart disease Maternal Grandmother Cancer Mother Depression Mother Diabetes Mother Heart disease Mother Hypertension Mother Mental illness Paternal Grandfather COPD Sister Asthma Son Hypertension Son Relation Name Status Comments Father Maternal Grandmother Mother Paternal Grandfather Sister Son Social History Date Tobacco Use Types Packs/Day Years Used Never Smoker Smokeless Tobacco: Never Used Alcohol Use Drinks/Week oz/Week Comments No Sex Assigned at Date Recorded Not on file Industry Job Start Date Occupation Not on file Not on file Not on file Travel End Travel History Travel Start No recent travel history available. Last Filed Vital Signs Time Taken Vital Sign Reading 01/30/2019 3:43 PM CDT Blood Pressure 119/57 01/30/2019 3:43 PM CDT Pulse 101 01/30/2019 3:43 PM CDT Temperature 36.4 C (97.5 F) 01/30/2019 3:43 PM CDT Respiratory Rate 18 01/30/2019 3:43 PM CDT Oxygen Saturation 96% 01/28/2019 10:46 PM CDT Inhaled Oxygen 21% Concentration 01/20/2019 4:15 AM CDT Weight 78 kg (171 lb 15.3 oz) 01/20/2019 4:15 AM CDT Height 165.1 cm (5' 5") 01/20/2019 4:15 AM CDT Body Mass Index 28.62 Plan of Treatment Not on file Implants Device Identifier Shelf Expiration Date Model / Serial / Lot Implanted Type Area Manufactur er 01/27/2021 [id number] / [id number] / Bone Chip Canc 1.7-10mm 30ml Bone N/A: Spine MUSCULOSKE [id number] - [id number] Thoracic LETAL Implanted: Qty: 1 on 05/12/2018 by TRANSPLANT Emilio Smith MD FND 04/24/2019 -1500-004 / [id number] / Bone Vivigen Matrix Frzen 15cc Bone N/A: Spine LIFENET:[facility]-1500-004 - [id number] Thoracic FENET Implanted: Qty: 1 on 05/12/2018 by Emilio Castillo MD SRV 07/31/2019 [id number] / [id number] / Bone Chip Canc 1.7-10mm 30ml Bone N/A: Spine MUSCULOSKE 925317 - [id number] Thoracic LETAL Implanted: Qty: 1 on 05/12/2018 by Emilio Castillo MD FND 12/06/2019 S05784 / [id number] / Graft Bone Orthoblend 10cc [id number] - Bone N/A: Spine MEDTRONIC: [id number] Thoracic SPINAL Implanted: Qty: 1 on 05/12/2018 by Emilio Galindo MD 12/19/2019 [id number] / [id number] / Graft Bone Orthoblend 10cc [id number] - Bone N/A: Spine MEDTRONIC: [id number] Thoracic SPINAL Implanted: Qty: 1 on 05/12/2018 by Emilio Galindo MD 10/27/2021 [id number] / [id number] / Bone Chip Canc 1.7-10mm 30ml Bone N/A: Spine MUSCULOSKE 754812 - [id number] Thoracic LETAL Implanted: Qty: 1 on 01/20/2019 by Emilio Castillo MD FND 08/26/2019 BL-1500-004 / / [id number] Bone Vivigen Matrix Frzen 15cc Bone N/A: Spine LIFENET:[facility]-1500-004 - [id number] Thoracic FENET Implanted: Qty: 1 on 01/20/2019 by TRANSPLANT Rafita Lazar MD SRV 08/19/2019 -1499-002 / [id number] / Bone Vivigen Matrix Frozen 5cc Bone N/A: Spine LIFENET:[facility]-1500-002 - [id number] Thoracic FENET Implanted: Qty: 1 on 01/20/2019 by TRANSPLANT Emilio Smith MD SRV 10/07/2019 [id number] / / [id number] Flseal Vhsd Full Strlprep 10ml Cement/Papo N/A: Spine STRATTON:BIO [id number] - [id number] ler/Adhesi Thoracic SCI Implanted: Qty: 3 on 05/12/2018 by ve Emilio Smith MD 02/27/2020 [id number] / / [id number] Confidence Hv Spinal Cement Cement/Papo N/A: Spine DEPUY Implanted: Qty: 1 on 05/12/2018 by ler/Adhesi Thoracic SPINE Emilio Smith MD ve 07/29/2021 620-010 / / [id number] Bone Putty Stimulan 10cc 620-010 - IMPLANTS N/A: Spine BIOCOMPOSI [id number] Thoracic ROSMERY Implanted: Qty: 1 on 01/20/2019 by Rafita Lazar MD / / Set Scr Si Innr Xped Ti IMPLANTS N/A: Spine J - [id number] Thoracic &J:DEPUY:D Implanted: Qty: 14 on 01/20/2019 by EPUY SPINE Rafita Lazar MD 09/28/2021 620-010 / / [id number] Bone Putty Stimulan 10cc 620-010 - IMPLANTS N/A: Spine BIOCOMPOSI [id number] Thoracic ROSMERY Implanted: Qty: 1 on 01/20/2019 by Emilio Smith MD / / 6x45 Verse Spine N/A: Spine DEPUY Implanted: Qty: 2 on 05/12/2018 by Thoracic SPINE Emilio Smith MD / / 6x50 Verse Spine N/A: Spine DEPUY Implanted: Qty: 2 on 05/12/2018 by Thoracic SPINE Emilio Smith MD / / 7x40 Verse Spine N/A: Spine DEPUY Implanted: Qty: 4 on 05/12/2018 by Thoracic SPINE Emilio mSith MD / / 7x45 Verse Spine N/A: Spine DEPUY Implanted: Qty: 2 on 05/12/2018 by Thoracic SPINE Emilio Smith MD 5 / / 8x35 Verse Spine N/A: Spine DEPUY Implanted: Qty: 2 on 05/12/2018 by Thoracic SPINE Emilio Smith MD [id number] / / 8x80 Buddy Screws Spine N/A: Spine DEPUY Implanted: Qty: 2 on 05/12/2018 by Thoracic SPINE Emilio Smith MD 545 / / 5x45 Prime Spine N/A: Spine DEPUY Implanted: Qty: 2 on 05/12/2018 by Thoracic SPINE Emilio Smith MD / / 6x40 Prime Spine N/A: Spine DEPUY Implanted: Qty: 1 on 05/12/2018 by Thoracic SPINE Emilio Smith MD / / 6x45 Prime Spine N/A: Spine DEPUY Implanted: Qty: 3 on 05/12/2018 by Thoracic SPINE Emilio Smith MD / / 6x40 Verse Spine N/A: Spine DEPUY Implanted: Qty: 1 on 05/12/2018 by Thoracic SPINE Emilio Smith MD / / Verse Set Screws Spine N/A: Spine DEPUY Implanted: Qty: 17 on 05/12/2018 by Thoracic SPINE Emilio Smith MD / / Expedium Set Screws Spine N/A: Spine DEPUY Implanted: Qty: 8 on 05/12/2018 by Thoracic SPINE Emilio Smith MD [id number] / / 5.5x480 Mm Rods Spine N/A: Spine DEPUY Implanted: Qty: 2 on 05/12/2018 by Thoracic SPINE Emilio Smith MD [id number] / / 5.5 To 5.5 Connectors Spine N/A: Spine DEPUY Implanted: Qty: 2 on 05/12/2018 by Thoracic SPINE Emilio Smith MD / / Scr Osbaldo Fix 5.0x30mm - Spine N/A: Spine J [id number] Thoracic &J:DEPUY:D Implanted: Qty: 1 on 01/20/2019 by EPUY Rafita Johnson MD / / Scr Osbaldo Fix 5x35mm Ti Spine N/A: Spine J - [id number] Thoracic &J:DEPUY:D Implanted: Qty: 1 on 01/20/2019 by EPRafita Mobley MD / / Scr Osbaldo Fix 5x40mm Ti Spine N/A: Spine J - [id number] Thoracic &J:DEPUY:D Implanted: Qty: 7 on 01/20/2019 by EPUY Rafita Johnson MD [id number] / / 5.5 Rods N/A: Spine DEPUY Implanted: Qty: 2 on 01/20/2019 by Rafita Gallagher MD [id number] / / Lateral Connectors N/A: Spine DEPUY Implanted: Qty: 4 on 01/20/2019 by Rafita Gallagher MD Procedures Comments Procedure Name Priority Date/Time Associated Diagnosis XR SPINE THORACIC 2 VIEWS Routine 04/26/2019 S/P spinal fusion 2:10 PM CDT Osteomyelitis, unspecified site, unspecified type (HCC) RHYTHM STRIP - SCAN 02/02/2019 10:50 AM CDT ECG 12-LEAD STAT 01/30/2019 4:12 PM CDT CBC W/PLT COUNT & AUTO Routine 01/30/2019 DIFFERENTIAL 5:39 AM CDT PHOSPHORUS Routine 01/30/2019 5:39 AM CDT MAGNESIUM Routine 01/30/2019 5:39 AM CDT BASIC METABOLIC PANEL (7) Routine 01/30/2019 5:39 AM CDT CBC W/PLT COUNT & AUTO Routine 01/30/2019 DIFFERENTIAL 5:39 AM CDT HEMOGLOBIN A1C Routine 01/30/2019 5:39 AM CDT POCT-GLUCOSE METER Routine 01/29/2019 9:47 PM CDT TROPONIN I Routine 01/29/2019 6:02 PM CDT POCT-GLUCOSE METER Routine 01/29/2019 5:16 PM CDT TROPONIN I Routine 01/29/2019 1:27 PM CDT POCT-GLUCOSE METER Routine 01/29/2019 8:55 AM CDT CBC W/PLT COUNT & AUTO Routine 01/29/2019 DIFFERENTIAL 4:13 AM CDT PHOSPHORUS Routine 01/29/2019 4:13 AM CDT MAGNESIUM Routine 01/29/2019 4:13 AM CDT BASIC METABOLIC PANEL (7) Routine 01/29/2019 4:13 AM CDT CBC W/PLT COUNT & AUTO Routine 01/29/2019 DIFFERENTIAL 4:13 AM CDT PHOSPHORUS Routine 01/29/2019 4:13 AM CDT POCT-GLUCOSE METER Routine 01/28/2019 10:14 PM CDT CBC W/PLT COUNT & AUTO Routine 01/28/2019 DIFFERENTIAL 5:44 AM CDT PHOSPHORUS Routine 01/28/2019 5:44 AM CDT MAGNESIUM Routine 01/28/2019 5:44 AM CDT BASIC METABOLIC PANEL (7) Routine 01/28/2019 5:44 AM CDT CBC W/PLT COUNT & AUTO Routine 01/28/2019 DIFFERENTIAL 5:44 AM CDT VANCOMYCIN LEVEL, TROUGH Timed 01/27/2019 5:10 PM CDT CBC W/PLT COUNT & AUTO Routine 01/27/2019 DIFFERENTIAL 5:51 AM CDT PHOSPHORUS Routine 01/27/2019 5:51 AM CDT MAGNESIUM Routine 01/27/2019 5:51 AM CDT BASIC METABOLIC PANEL (7) Routine 01/27/2019 5:51 AM CDT CBC W/PLT COUNT & AUTO Routine 01/27/2019 DIFFERENTIAL 5:51 AM CDT CBC W/PLT COUNT & AUTO Routine 01/26/2019 DIFFERENTIAL 5:57 AM CDT CBC W/PLT COUNT & AUTO Routine 01/26/2019 DIFFERENTIAL 5:57 AM CDT PHOSPHORUS Routine 01/26/2019 5:41 AM CDT MAGNESIUM Routine 01/26/2019 5:41 AM CDT BASIC METABOLIC PANEL (7) Routine 01/26/2019 5:41 AM CDT ECG 12-LEAD Routine 01/25/2019 8:58 AM CDT Procedure Note - Interface, External Ris In - 01/25/2019 3:19 PM CDT Ventricula r Rate 0 BPM Atrial Rate 0 BPM QRS Duration 0 ms Q-T Interval 0 ms QTC Calculatio n(Bazett) 0 ms R [place] 0 degrees T [place] 0 degrees No QRS complexes found, no ECG analysis possible When compared with ECG of 9 08:55, Current undetermin ed rhythm precludes rhythm comparison , needs review ECG 12-LEAD Routine 01/25/2019 8:55 AM CDT Procedure Note - Interface, External Ris In - 01/25/2019 3:18 PM CDT Ventricula r Rate 83 BPM Atrial Rate 83 BPM P-R Interval 160 ms QRS Duration 84 ms Q-T Interval 370 ms QTC Calculatio n(Bazett) 434 ms P [place] 23 degrees R [place] -13 degrees T [place] 13 degrees Normal sinus rhythm Cannot rule out Anterior infarct (cited on or before 9) Abnormal ECG When compared with ECG of 9 11:48, No significan t change was found ECG 12-LEAD Routine 01/25/2019 8:55 AM CDT TROPONIN I Routine 01/25/2019 7:52 AM CDT CBC W/PLT COUNT & AUTO Routine 01/25/2019 DIFFERENTIAL 2:47 AM CDT PHOSPHORUS Routine 01/25/2019 2:47 AM CDT MAGNESIUM Routine 01/25/2019 2:47 AM CDT BASIC METABOLIC PANEL (7) Routine 01/25/2019 2:47 AM CDT CBC W/PLT COUNT & AUTO Routine 01/25/2019 DIFFERENTIAL 2:47 AM CDT SODIUM STAT 01/24/2019 1:06 PM CDT POTASSIUM Routine 01/24/2019 10:55 AM CDT MAGNESIUM Routine 01/24/2019 10:55 AM CDT CBC W/PLT COUNT & AUTO Routine 01/24/2019 DIFFERENTIAL 4:01 AM CDT PHOSPHORUS Routine 01/24/2019 4:01 AM CDT MAGNESIUM Routine 01/24/2019 4:01 AM CDT BASIC METABOLIC PANEL (7) Routine 01/24/2019 4:01 AM CDT CBC W/PLT COUNT & AUTO Routine 01/24/2019 DIFFERENTIAL 4:01 AM CDT VANCOMYCIN LEVEL, TROUGH Timed 01/23/2019 11:34 PM CDT MAGNESIUM Routine 01/23/2019 1:45 PM CDT CBC W/PLT COUNT & AUTO Routine 01/23/2019 DIFFERENTIAL 3:19 AM CDT PHOSPHORUS Routine 01/23/2019 3:19 AM CDT MAGNESIUM Routine 01/23/2019 3:19 AM CDT BASIC METABOLIC PANEL (7) Routine 01/23/2019 3:19 AM CDT CBC W/PLT COUNT & AUTO Routine 01/23/2019 DIFFERENTIAL 3:19 AM CDT PERIPHERAL VASCULAR 01/22/2019 REPORT - SCAN 9:23 PM CDT TRANSFUSION SERVICE 01/22/2019 REPORT - SCAN 6:03 PM CDT VRE SCREEN Routine 01/22/2019 9:48 AM CDT VANCOMYCIN LEVEL, TROUGH Timed 01/22/2019 8:52 AM CDT CBC W/PLT COUNT & AUTO Routine 01/22/2019 DIFFERENTIAL 1:56 AM CDT PHOSPHORUS Routine 01/22/2019 1:56 AM CDT MAGNESIUM Routine 01/22/2019 1:56 AM CDT BASIC METABOLIC PANEL (7) Routine 01/22/2019 1:56 AM CDT CBC W/PLT COUNT & AUTO Routine 01/22/2019 DIFFERENTIAL 1:56 AM CDT PREPARE RBC Routine 01/21/2019 11:55 PM CDT ECHOCARDIOGRAM REPORT - 01/21/2019 SCAN 9:22 PM CDT TRANSFUSION SERVICE 01/21/2019 REPORT - SCAN 6:03 PM CDT 2D ECHO W/ DOPPLER Routine 01/21/2019 (CW/PW/COLOR) 3:02 PM CDT VENOUS DOPPLER LEGS Routine 01/21/2019 BILATERAL 11:21 AM CDT B-TYPE NATRIURETIC FACTOR Routine 01/21/2019 (BNP) 10:29 AM CDT VANCOMYCIN LEVEL, RANDOM Routine 01/21/2019 9:42 AM CDT CBC W/PLT COUNT & AUTO Routine 01/21/2019 DIFFERENTIAL 3:51 AM CDT PHOSPHORUS Routine 01/21/2019 3:51 AM CDT MAGNESIUM Routine 01/21/2019 3:51 AM CDT CBC W/PLT COUNT & AUTO Routine 01/21/2019 DIFFERENTIAL 3:51 AM CDT BASIC METABOLIC PANEL (7) Routine 01/21/2019 3:51 AM CDT BLOOD CULTURE Routine 01/21/2019 3:44 AM CDT CBC W/PLT COUNT & AUTO STAT 01/20/2019 DIFFERENTIAL 6:45 PM CDT CBC W/PLT COUNT & AUTO STAT 01/20/2019 DIFFERENTIAL 6:45 PM CDT HGB/HCT (H&H) - STAT LAB STAT 01/20/2019 5:56 PM CDT GLUCOSE-STAT LAB STAT 01/20/2019 5:56 PM CDT POTASSIUM-STAT LAB STAT 01/20/2019 5:56 PM CDT SODIUM NA-STAT LAB STAT 01/20/2019 5:56 PM CDT BLOOD GAS, ARTERIAL STAT 01/20/2019 5:56 PM CDT CALCIUM, IONIZED STAT 01/20/2019 5:56 PM CDT [facility] CRITICAL LABS STAT 01/20/2019 (ABG,NA,K,H&H,GLUCOSE) 5:56 PM CDT FL SPECIAL WARFARE OPERATOR IN OR 30 Routine 01/20/2019 MINUTE INCREMENTS 5:45 PM CDT TRANSFUSE LEUKO-REDUCED Routine 01/20/2019 RED BLOOD CELLS 5:15 PM CDT SHORT LATENCY SEP ALL Routine 01/20/2019 LIMBS 4:58 PM CDT TRANSFUSE LEUKO-REDUCED Routine 01/20/2019 RED BLOOD CELLS 4:41 PM CDT ANTIBODY IDENTIFICATION Routine 01/20/2019 4:12 PM CDT HGB/HCT (H&H) - STAT LAB STAT 01/20/2019 3:59 PM CDT GLUCOSE-STAT LAB STAT 01/20/2019 3:59 PM CDT POTASSIUM-STAT LAB STAT 01/20/2019 3:59 PM CDT SODIUM NA-STAT LAB STAT 01/20/2019 3:59 PM CDT BLOOD GAS, ARTERIAL STAT 01/20/2019 3:59 PM CDT CALCIUM, IONIZED STAT 01/20/2019 3:59 PM CDT [facility] CRITICAL LABS STAT 01/20/2019 (ABG,NA,K,H&H,GLUCOSE) 3:59 PM CDT HGB/HCT (H&H) - STAT LAB STAT 01/20/2019 2:24 PM CDT GLUCOSE-STAT LAB STAT 01/20/2019 2:24 PM CDT POTASSIUM-STAT LAB STAT 01/20/2019 2:24 PM CDT SODIUM NA-STAT LAB STAT 01/20/2019 2:24 PM CDT BLOOD GAS, ARTERIAL STAT 01/20/2019 2:24 PM CDT CALCIUM, IONIZED STAT 01/20/2019 2:24 PM CDT [facility] CRITICAL LABS STAT 01/20/2019 (ABG,NA,K,H&H,GLUCOSE) 2:24 PM CDT ECG 12-LEAD Routine 01/20/2019 11:48 AM CDT ECG 12-LEAD Routine 01/20/2019 11:48 AM CDT Procedure Note - Interface, External Ris In - 01/20/2019 11:49 AM CDT Ventricula r Rate 82 BPM Atrial Rate 82 BPM P-R Interval 192 ms QRS Duration 90 ms Q-T Interval 368 ms QTC Calculatio n(Bazett) 429 ms P [place] 36 degrees R [place] -12 degrees T [place] 21 degrees Normal sinus rhythm Minimal voltage criteria for LVH, may be normal variant Cannot rule out Anterior infarct , age undetermin ed Abnormal ECG When compared with ECG of 9 14:46, Borderline criteria for Inferior infarct are no longer Present ST no longer depressed in Anterolate ral leads LAMINECTOMY,THORACIC 01/20/2019 Compression of spinal W/FUSION 11:44 AM CDT cord (HCC) Special Needs REQ O-ARM AND FIRST AVAILABLE ROOM THAT OPENS UP THAT CAN ACCOMMODAT E THE O-ARM; ALSO NEUROMONIT ORING XR CHEST 1 VIEW STAT 01/20/2019 PORTABLE/BEDSIDE 11:30 AM CDT BLOOD CULTURE Routine 01/20/2019 9:48 AM CDT CBC W/PLT COUNT & AUTO Routine 01/20/2019 DIFFERENTIAL 5:53 AM CDT CBC W/PLT COUNT & AUTO Routine 01/20/2019 DIFFERENTIAL 5:53 AM CDT PHOSPHORUS Routine 01/20/2019 5:53 AM CDT MAGNESIUM Routine 01/20/2019 5:53 AM CDT BASIC METABOLIC PANEL (7) Routine 01/20/2019 5:53 AM CDT URINALYSIS W/ MICROSCOPIC STAT 01/20/2019 5:53 AM CDT MR THORACIC SPINE WITH & STAT 01/20/2019 WITHOUT IV CONTRAST 4:34 AM CDT MR LUMBAR SPINE WITH & STAT 01/20/2019 WITHOUT IV CONTRAST 4:34 AM CDT PROCEDURE DONE OUTSIDE OR 01/20/2019 Lumbar back pain 1:00 AM CDT Special Needs REQ BRANDEN TYPE AND SCREEN, Routine 01/20/2019 AUTOMATED 12:33 AM CDT PT/APTT Routine 01/20/2019 12:33 AM CDT XR ABDOMEN / KUB 1 VIEW STAT 01/19/2019 11:26 PM CDT BLOOD CULTURE STAT 01/19/2019 6:36 PM CDT BLOOD CULTURE STAT 01/19/2019 6:16 PM CDT CRITICAL CARE Routine 01/19/2019 5:[address] LUMBAR SPINE WITHOUT STAT 01/19/2019 IV CONTRAST 5:[address] BRAIN WITHOUT IV STAT 01/19/2019 CONTRAST 5:02 PM CDT CBC W/PLT COUNT & AUTO STAT 01/19/2019 DIFFERENTIAL 4:38 PM CDT BASIC METABOLIC PANEL (7) STAT 01/19/2019 4:38 PM CDT CBC W/PLT COUNT & AUTO STAT 01/19/2019 DIFFERENTIAL 4:38 PM CDT RHYTHM STRIP - SCAN 01/19/2019 8:00 AM CDT REPORT OF PROCEDURE - 01/19/2019 ENDOSCOPY SCAN 8:00 AM CDT CBC (HEMOGRAM ONLY) Routine 01/15/2019 4:21 AM CDT BASIC METABOLIC PANEL (7) Routine 01/15/2019 4:21 AM CDT VANCOMYCIN LEVEL, TROUGH Timed 01/15/2019 4:21 AM CDT CBC (HEMOGRAM ONLY) Routine 01/14/2019 3:38 AM CDT BASIC METABOLIC PANEL (7) Routine 01/14/2019 3:38 AM CDT CBC (HEMOGRAM ONLY) Routine 01/13/2019 4:48 AM CDT BASIC METABOLIC PANEL (7) Routine 01/13/2019 4:48 AM CDT CBC (HEMOGRAM ONLY) Routine 01/12/2019 3:48 AM CDT BASIC METABOLIC PANEL (7) Routine 01/12/2019 3:48 AM CDT VANCOMYCIN LEVEL, TROUGH Timed 01/11/2019 5:49 PM CDT CBC (HEMOGRAM ONLY) Routine 01/11/2019 5:17 AM CDT BASIC METABOLIC PANEL (7) Routine 01/11/2019 5:17 AM CDT CBC (HEMOGRAM ONLY) Routine 01/10/2019 4:00 AM CDT BASIC METABOLIC PANEL (7) Routine 01/10/2019 4:00 AM CDT CBC (HEMOGRAM ONLY) Routine 01/09/2019 4:28 AM CDT BASIC METABOLIC PANEL (7) Routine 01/09/2019 4:[address] LUMBAR SPINE WITHOUT STAT 01/08/2019 IV CONTRAST 11:[address] THORACIC SPINE WITHOUT STAT 01/08/2019 IV CONTRAST 11:17 AM CDT URINALYSIS W/ REFLEX Routine 01/08/2019 URINE CULTURE 10:35 AM CDT URINE CULTURE Routine 01/08/2019 10:35 AM CDT BLOOD CULTURE Routine 01/08/2019 4:02 AM CDT LACTIC ACID, VENOUS Routine 01/08/2019 3:49 AM CDT PROCALCITONIN Routine 01/08/2019 3:49 AM CDT C-REACTIVE PROTEIN Routine 01/08/2019 3:49 AM CDT CBC (HEMOGRAM ONLY) Routine 01/08/2019 3:49 AM CDT BASIC METABOLIC PANEL (7) Routine 01/08/2019 3:49 AM CDT BLOOD CULTURE Routine 01/08/2019 3:49 AM CDT POCT-GLUCOSE METER Routine 01/07/2019 3:06 PM CDT ECG 12-LEAD STAT 01/07/2019 2:[address] BRAIN WITHOUT IV STAT 01/07/2019 CONTRAST 1:39 PM CDT URINALYSIS W/ MICROSCOPIC STAT 01/07/2019 1:24 PM CDT URINE CULTURE STAT 01/07/2019 1:24 PM CDT CBC W/PLT COUNT & AUTO STAT 01/07/2019 DIFFERENTIAL 12:41 PM CDT AMMONIA STAT 01/07/2019 12:41 PM CDT HEPATIC FUNCTION PANEL STAT 01/07/2019 12:41 PM CDT TROPONIN I STAT 01/07/2019 12:41 PM CDT PT/APTT STAT 01/07/2019 12:41 PM CDT CBC W/PLT COUNT & AUTO STAT 01/07/2019 DIFFERENTIAL 12:41 PM CDT MAGNESIUM STAT 01/07/2019 12:41 PM CDT BASIC METABOLIC PANEL (7) STAT 01/07/2019 12:41 PM CDT XR CHEST PA OR AP 1 VIEW STAT 01/07/2019 IN DEPT. 11:55 AM CDT CBC W/PLT COUNT & AUTO Routine 12/25/2018 DIFFERENTIAL 2:08 AM CDT CBC W/PLT COUNT & AUTO Routine 12/25/2018 DIFFERENTIAL 2:08 AM CDT BASIC METABOLIC PANEL (7) Routine 12/25/2018 2:08 AM CDT XR CHEST 1 VIEW STAT 12/24/2018 PORTABLE/BEDSIDE 5:32 PM CDT CBC W/PLT COUNT & AUTO Routine 12/24/2018 DIFFERENTIAL 6:42 AM CDT CBC W/PLT COUNT & AUTO Routine 12/24/2018 DIFFERENTIAL 6:42 AM CDT BASIC METABOLIC PANEL (7) Routine 12/24/2018 6:42 AM CDT CBC W/PLT COUNT & AUTO Routine 12/23/2018 DIFFERENTIAL 5:17 AM CDT CBC W/PLT COUNT & AUTO Routine 12/23/2018 DIFFERENTIAL 5:17 AM CDT BASIC METABOLIC PANEL (7) Routine 12/23/2018 5:[address] Routine 12/22/2018 BIOPSY/ASPIRATION/INJECTI 11:49 AM CDT ON ANAEROBIC CULTURE Routine 12/22/2018 11:12 AM CDT FUNGUS CULTURE + SMEAR Routine 12/22/2018 11:12 AM CDT AFB CULTURE + SMEAR Routine 12/22/2018 11:12 AM CDT BODY FLUID CULTURE + GRAM Routine 12/22/2018 STAIN 10:45 AM CDT CBC W/PLT COUNT & AUTO Routine 12/22/2018 DIFFERENTIAL 5:42 AM CDT CBC W/PLT COUNT & AUTO Routine 12/22/2018 DIFFERENTIAL 5:42 AM CDT BASIC METABOLIC PANEL (7) Routine 12/22/2018 5:42 AM CDT PT/APTT Routine 12/21/2018 9:07 AM CDT CBC W/PLT COUNT & AUTO Routine 12/21/2018 DIFFERENTIAL 5:34 AM CDT CBC W/PLT COUNT & AUTO Routine 12/21/2018 DIFFERENTIAL 5:34 AM CDT BASIC METABOLIC PANEL (7) Routine 12/21/2018 5:34 AM CDT CBC W/PLT COUNT & AUTO Routine 12/20/2018 DIFFERENTIAL 5:59 AM CDT CBC W/PLT COUNT & AUTO Routine 12/20/2018 DIFFERENTIAL 5:59 AM CDT BASIC METABOLIC PANEL (7) Routine 12/20/2018 5:59 AM CDT CBC W/PLT COUNT & AUTO Routine 12/19/2018 DIFFERENTIAL 5:58 AM CDT CBC W/PLT COUNT & AUTO Routine 12/19/2018 DIFFERENTIAL 5:58 AM CDT BASIC METABOLIC PANEL (7) Routine 12/19/2018 5:58 AM CDT CBC W/PLT COUNT & AUTO Routine 12/18/2018 DIFFERENTIAL 5:23 AM CDT CBC W/PLT COUNT & AUTO Routine 12/18/2018 DIFFERENTIAL 5:23 AM CDT BASIC METABOLIC PANEL (7) Routine 12/18/2018 5:23 AM CDT XR SPINE SCOLIOSIS STUDY STAT 12/17/2018 7:58 AM CDT CBC W/PLT COUNT & AUTO Routine 12/17/2018 DIFFERENTIAL 6:13 AM CDT CBC W/PLT COUNT & AUTO Routine 12/17/2018 DIFFERENTIAL 6:13 AM CDT BASIC METABOLIC PANEL (7) Routine 12/17/2018 6:13 AM CDT CBC W/PLT COUNT & AUTO Routine 12/16/2018 DIFFERENTIAL 5:58 AM CDT CBC W/PLT COUNT & AUTO Routine 12/16/2018 DIFFERENTIAL 5:58 AM CDT BASIC METABOLIC PANEL (7) Routine 12/16/2018 5:58 AM CDT REPORT OF PROCEDURE - 12/15/2018 ENDOSCOPY SCAN 5:29 PM CDT CBC W/PLT COUNT & AUTO Routine 12/15/2018 DIFFERENTIAL 5:49 AM CDT C-REACTIVE PROTEIN Routine 12/15/2018 5:49 AM CDT CBC W/PLT COUNT & AUTO Routine 12/15/2018 DIFFERENTIAL 5:49 AM CDT MAGNESIUM Routine 12/15/2018 5:49 AM CDT BASIC METABOLIC PANEL (7) Routine 12/15/2018 5:[address] LUMBAR SPINE WITH IV Routine 12/14/2018 CONTRAST 2:[address] THORACIC SPINE WITH IV Routine 12/14/2018 CONTRAST 2:44 PM CDT CBC W/PLT COUNT & AUTO Routine 12/14/2018 DIFFERENTIAL 5:16 AM CDT CBC W/PLT COUNT & AUTO Routine 12/14/2018 DIFFERENTIAL 5:16 AM CDT MAGNESIUM Routine 12/14/2018 5:16 AM CDT BASIC METABOLIC PANEL (7) Routine 12/14/2018 5:16 AM CDT CBC W/PLT COUNT & AUTO Routine 12/13/2018 DIFFERENTIAL 5:59 AM CDT HEPATIC FUNCTION PANEL Routine 12/13/2018 5:59 AM CDT TSH/FREE T4 IF INDICATED Routine 12/13/2018 5:59 AM CDT CBC W/PLT COUNT & AUTO Routine 12/13/2018 DIFFERENTIAL 5:59 AM CDT MAGNESIUM Routine 12/13/2018 5:59 AM CDT BASIC METABOLIC PANEL (7) Routine 12/13/2018 5:59 AM CDT TROPONIN I STAT 12/13/2018 5:[address] THORACIC SPINE WITHOUT STAT 12/12/2018 IV CONTRAST 10:[address] LUMBAR SPINE WITHOUT STAT 12/12/2018 IV CONTRAST 10:[address] BRAIN WITHOUT IV STAT 12/12/2018 CONTRAST 10:34 AM CDT RAPID INFLUENZA A&B STAT 12/12/2018 SCREEN 9:40 AM CDT ECG 12-LEAD Routine 12/12/2018 9:38 AM CDT Procedure Note - Interface, External Ris In - 12/12/2018 2:02 PM CDT Ventricula r Rate 91 BPM Atrial Rate 91 BPM P-R Interval 150 ms QRS Duration 86 ms Q-T Interval 356 ms QTC Calculatio n(Bazett) 437 ms P [place] 34 degrees R [place] -10 degrees T [place] 12 degrees Normal sinus rhythm Minimal voltage criteria for LVH, may be normal variant Inferior infarct , age undetermin ed Abnormal ECG When compared with ECG of 8 22:33, Inferior infarct is now Present ECG 12-LEAD STAT 12/12/2018 9:38 AM CDT URINALYSIS W/ REFLEX STAT 12/12/2018 URINE CULTURE 9:31 AM CDT XR CHEST 1 VIEW STAT 12/12/2018 PORTABLE/BEDSIDE 9:22 AM CDT POCT-LACTIC ACID, VENOUS Routine 12/12/2018 9:17 AM CDT CBC W/PLT COUNT & AUTO STAT 12/12/2018 DIFFERENTIAL 9:13 AM CDT B-TYPE NATRIURETIC FACTOR STAT 12/12/2018 (BNP) 9:13 AM CDT TROPONIN I STAT 12/12/2018 9:13 AM CDT BASIC METABOLIC PANEL (7) STAT 12/12/2018 9:13 AM CDT CBC W/PLT COUNT & AUTO STAT 12/12/2018 DIFFERENTIAL 9:13 AM CDT BLOOD CULTURE STAT 12/12/2018 9:13 AM CDT BLOOD CULTURE STAT 12/12/2018 9:13 AM CDT RHYTHM STRIP - SCAN 11/25/2018 11:31 AM INSTALLATION SERVICE REPRESENTATIVE CBC W/PLT COUNT & AUTO Routine 11/20/2018 DIFFERENTIAL 4:06 AM INSTALLATION SERVICE REPRESENTATIVE CBC W/PLT COUNT & AUTO Routine 11/20/2018 DIFFERENTIAL 4:06 AM INSTALLATION SERVICE REPRESENTATIVE MAGNESIUM Routine 11/20/2018 4:06 AM INSTALLATION SERVICE REPRESENTATIVE BASIC METABOLIC PANEL (7) Routine 11/20/2018 4:06 AM INSTALLATION SERVICE REPRESENTATIVE NM WHITE BLOOD CELL STAT 11/19/2018 IMAGING SPECT 2:07 PM INSTALLATION SERVICE REPRESENTATIVE MAGNESIUM Routine 11/19/2018 6:20 AM INSTALLATION SERVICE REPRESENTATIVE BASIC METABOLIC PANEL (7) Routine 11/19/2018 6:20 AM INSTALLATION SERVICE REPRESENTATIVE CBC W/PLT COUNT & AUTO Routine 11/19/2018 DIFFERENTIAL 4:51 AM INSTALLATION SERVICE REPRESENTATIVE CBC W/PLT COUNT & AUTO Routine 11/19/2018 DIFFERENTIAL 4:51 AM INSTALLATION SERVICE REPRESENTATIVE CBC W/PLT COUNT & AUTO Routine 11/18/2018 DIFFERENTIAL 4:13 AM INSTALLATION SERVICE REPRESENTATIVE CBC W/PLT COUNT & AUTO Routine 11/18/2018 DIFFERENTIAL 4:13 AM INSTALLATION SERVICE REPRESENTATIVE MAGNESIUM Routine 11/18/2018 4:13 AM INSTALLATION SERVICE REPRESENTATIVE BASIC METABOLIC PANEL (7) Routine 11/18/2018 4:13 AM INSTALLATION SERVICE REPRESENTATIVE VALPROIC ACID LEVEL, Routine 11/17/2018 TOTAL 6:44 AM INSTALLATION SERVICE REPRESENTATIVE MAGNESIUM Routine 11/17/2018 6:44 AM INSTALLATION SERVICE REPRESENTATIVE BASIC METABOLIC PANEL (7) Routine 11/17/2018 6:44 AM INSTALLATION SERVICE REPRESENTATIVE CBC W/PLT COUNT & AUTO Routine 11/17/2018 DIFFERENTIAL 5:33 AM INSTALLATION SERVICE REPRESENTATIVE CBC W/PLT COUNT & AUTO Routine 11/17/2018 DIFFERENTIAL 5:33 AM INSTALLATION SERVICE REPRESENTATIVE CBC W/PLT COUNT & AUTO Routine 11/16/2018 DIFFERENTIAL 4:52 AM INSTALLATION SERVICE REPRESENTATIVE CBC W/PLT COUNT & AUTO Routine 11/16/2018 DIFFERENTIAL 4:52 AM INSTALLATION SERVICE REPRESENTATIVE MAGNESIUM Routine 11/16/2018 4:52 AM INSTALLATION SERVICE REPRESENTATIVE BASIC METABOLIC PANEL (7) Routine 11/16/2018 4:52 AM INSTALLATION SERVICE REPRESENTATIVE HEPATIC FUNCTION PANEL Routine 11/15/2018 6:11 PM INSTALLATION SERVICE REPRESENTATIVE CBC W/PLT COUNT & AUTO Routine 11/15/2018 DIFFERENTIAL 3:38 AM INSTALLATION SERVICE REPRESENTATIVE CBC W/PLT COUNT & AUTO Routine 11/15/2018 DIFFERENTIAL 3:38 AM INSTALLATION SERVICE REPRESENTATIVE MAGNESIUM Routine 11/15/2018 3:38 AM INSTALLATION SERVICE REPRESENTATIVE BASIC METABOLIC PANEL (7) Routine 11/15/2018 3:38 AM INSTALLATION SERVICE REPRESENTATIVE CBC W/PLT COUNT & AUTO Routine 11/14/2018 DIFFERENTIAL 5:33 AM INSTALLATION SERVICE REPRESENTATIVE CBC W/PLT COUNT & AUTO Routine 11/14/2018 DIFFERENTIAL 5:33 AM INSTALLATION SERVICE REPRESENTATIVE MAGNESIUM Routine 11/14/2018 5:33 AM INSTALLATION SERVICE REPRESENTATIVE BASIC METABOLIC PANEL (7) Routine 11/14/2018 5:33 AM INSTALLATION SERVICE REPRESENTATIVE CBC W/PLT COUNT & AUTO Routine 11/13/2018 DIFFERENTIAL 5:42 AM INSTALLATION SERVICE REPRESENTATIVE CBC W/PLT COUNT & AUTO Routine 11/13/2018 DIFFERENTIAL 5:42 AM INSTALLATION SERVICE REPRESENTATIVE MAGNESIUM Routine 11/13/2018 5:42 AM INSTALLATION SERVICE REPRESENTATIVE BASIC METABOLIC PANEL (7) Routine 11/13/2018 5:42 AM INSTALLATION SERVICE REPRESENTATIVE CBC W/PLT COUNT & AUTO Routine 11/12/2018 DIFFERENTIAL 5:49 AM INSTALLATION SERVICE REPRESENTATIVE CBC W/PLT COUNT & AUTO Routine 11/12/2018 DIFFERENTIAL 5:49 AM INSTALLATION SERVICE REPRESENTATIVE MAGNESIUM Routine 11/12/2018 5:49 AM INSTALLATION SERVICE REPRESENTATIVE BASIC METABOLIC PANEL (7) Routine 11/12/2018 5:49 AM INSTALLATION SERVICE REPRESENTATIVE XR CHEST 1 VIEW STAT 11/11/2018 PORTABLE/BEDSIDE 10:17 PM INSTALLATION SERVICE REPRESENTATIVE VANCOMYCIN LEVEL, TROUGH Timed 11/11/2018 9:40 PM INSTALLATION SERVICE REPRESENTATIVE CT Routine 11/11/2018 BIOPSY/ASPIRATION/INJECTI 6:07 PM INSTALLATION SERVICE REPRESENTATIVE ON BODY FLUID CULTURE + GRAM Routine 11/11/2018 STAIN 5:52 PM INSTALLATION SERVICE REPRESENTATIVE CBC W/PLT COUNT & AUTO Routine 11/11/2018 DIFFERENTIAL 3:21 AM INSTALLATION SERVICE REPRESENTATIVE CBC W/PLT COUNT & AUTO Routine 11/11/2018 DIFFERENTIAL 3:21 AM INSTALLATION SERVICE REPRESENTATIVE MAGNESIUM Routine 11/11/2018 3:21 AM INSTALLATION SERVICE REPRESENTATIVE BASIC METABOLIC PANEL (7) Routine 11/11/2018 3:21 AM INSTALLATION SERVICE REPRESENTATIVE BLOOD CULTURE Routine 11/10/2018 2:40 PM INSTALLATION SERVICE REPRESENTATIVE BLOOD CULTURE Routine 11/10/2018 2:39 PM INSTALLATION SERVICE REPRESENTATIVE CBC W/PLT COUNT & AUTO Routine 11/10/2018 DIFFERENTIAL 6:15 AM INSTALLATION SERVICE REPRESENTATIVE CBC W/PLT COUNT & AUTO Routine 11/10/2018 DIFFERENTIAL 6:15 AM INSTALLATION SERVICE REPRESENTATIVE MAGNESIUM Routine 11/10/2018 6:15 AM INSTALLATION SERVICE REPRESENTATIVE BASIC METABOLIC PANEL (7) Routine 11/10/2018 6:15 AM INSTALLATION SERVICE REPRESENTATIVE URINALYSIS MICROSCOPIC Routine 11/09/2018 5:50 PM INSTALLATION SERVICE REPRESENTATIVE URINALYSIS WITH STAT 11/09/2018 MICROSCOPIC IF INDICATED 5:50 PM INSTALLATION SERVICE REPRESENTATIVE CBC W/PLT COUNT & AUTO Routine 11/09/2018 DIFFERENTIAL 4:08 AM INSTALLATION SERVICE REPRESENTATIVE VITAMIN B12 AND FOLATE Routine 11/09/2018 4:08 AM INSTALLATION SERVICE REPRESENTATIVE IRON, TIBC, % SAT. Routine 11/09/2018 (WITHOUT FERRITIN) 4:08 AM INSTALLATION SERVICE REPRESENTATIVE FERRITIN Routine 11/09/2018 4:08 AM INSTALLATION SERVICE REPRESENTATIVE TSH/FREE T4 IF INDICATED Routine 11/09/2018 4:08 AM INSTALLATION SERVICE REPRESENTATIVE CBC W/PLT COUNT & AUTO Routine 11/09/2018 DIFFERENTIAL 4:08 AM INSTALLATION SERVICE REPRESENTATIVE MAGNESIUM Routine 11/09/2018 4:08 AM INSTALLATION SERVICE REPRESENTATIVE BASIC METABOLIC PANEL (7) Routine 11/09/2018 4:08 AM INSTALLATION SERVICE REPRESENTATIVE BLOOD CULTURE Routine 11/08/2018 IDENTIFICATION PANEL 8:39 PM INSTALLATION SERVICE REPRESENTATIVE BLOOD CULTURE STAT 11/08/2018 8:39 PM INSTALLATION SERVICE REPRESENTATIVE BLOOD CULTURE STAT 11/08/2018 8:39 PM INSTALLATION SERVICE REPRESENTATIVE CT ABDOMEN/PELVIS WITHOUT STAT 11/08/2018 IV CONTRAST 8:18 PM INSTALLATION SERVICE REPRESENTATIVE PT/APTT STAT 11/08/2018 6:03 PM INSTALLATION SERVICE REPRESENTATIVE XR CHEST 1 VIEW STAT 11/08/2018 PORTABLE/BEDSIDE 5:57 PM INSTALLATION SERVICE REPRESENTATIVE CBC W/PLT COUNT & AUTO STAT 11/08/2018 DIFFERENTIAL 5:46 PM INSTALLATION SERVICE REPRESENTATIVE MAGNESIUM STAT 11/08/2018 5:46 PM INSTALLATION SERVICE REPRESENTATIVE BASIC METABOLIC PANEL (7) STAT 11/08/2018 5:46 PM INSTALLATION SERVICE REPRESENTATIVE CBC W/PLT COUNT & AUTO STAT 11/08/2018 DIFFERENTIAL 5:46 PM INSTALLATION SERVICE REPRESENTATIVE XR SPINE THORACIC 2 VIEWS Routine 10/26/2018 S/P spinal fusion 2:18 PM INSTALLATION SERVICE REPRESENTATIVE RHYTHM STRIP - SCAN 08/12/2018 12:00 PM INSTALLATION SERVICE REPRESENTATIVE CBC W/PLT COUNT & AUTO Routine 08/11/2018 DIFFERENTIAL 4:35 AM INSTALLATION SERVICE REPRESENTATIVE CBC W/PLT COUNT & AUTO Routine 08/11/2018 DIFFERENTIAL 4:35 AM INSTALLATION SERVICE REPRESENTATIVE BASIC METABOLIC PANEL (7) Routine 08/11/2018 4:35 AM INSTALLATION SERVICE REPRESENTATIVE CBC W/PLT COUNT & AUTO Routine 08/10/2018 DIFFERENTIAL 5:34 AM INSTALLATION SERVICE REPRESENTATIVE CBC W/PLT COUNT & AUTO Routine 08/10/2018 DIFFERENTIAL 5:34 AM INSTALLATION SERVICE REPRESENTATIVE BASIC METABOLIC PANEL (7) Routine 08/10/2018 5:34 AM INSTALLATION SERVICE REPRESENTATIVE CBC W/PLT COUNT & AUTO Routine 08/09/2018 DIFFERENTIAL 5:06 AM INSTALLATION SERVICE REPRESENTATIVE CBC W/PLT COUNT & AUTO Routine 08/09/2018 DIFFERENTIAL 5:06 AM INSTALLATION SERVICE REPRESENTATIVE BASIC METABOLIC PANEL (7) Routine 08/09/2018 5:06 AM INSTALLATION SERVICE REPRESENTATIVE CBC W/PLT COUNT & AUTO Routine 08/08/2018 DIFFERENTIAL 4:42 AM INSTALLATION SERVICE REPRESENTATIVE MAGNESIUM Routine 08/08/2018 4:42 AM INSTALLATION SERVICE REPRESENTATIVE CBC W/PLT COUNT & AUTO Routine 08/08/2018 DIFFERENTIAL 4:42 AM INSTALLATION SERVICE REPRESENTATIVE BASIC METABOLIC PANEL (7) Routine 08/08/2018 4:42 AM INSTALLATION SERVICE REPRESENTATIVE CBC W/PLT COUNT & AUTO Routine 08/07/2018 DIFFERENTIAL 4:42 AM INSTALLATION SERVICE REPRESENTATIVE MAGNESIUM Routine 08/07/2018 4:42 AM INSTALLATION SERVICE REPRESENTATIVE CBC W/PLT COUNT & AUTO Routine 08/07/2018 DIFFERENTIAL 4:42 AM INSTALLATION SERVICE REPRESENTATIVE BASIC METABOLIC PANEL (7) Routine 08/07/2018 4:42 AM INSTALLATION SERVICE REPRESENTATIVE CT LUMBAR SPINE WITHOUT Routine 08/07/2018 IV CONTRAST 1:15 AM INSTALLATION SERVICE REPRESENTATIVE CBC W/PLT COUNT & AUTO Routine 08/06/2018 DIFFERENTIAL 3:42 AM INSTALLATION SERVICE REPRESENTATIVE TSH/FREE T4 IF INDICATED Routine 08/06/2018 3:42 AM INSTALLATION SERVICE REPRESENTATIVE MAGNESIUM Routine 08/06/2018 3:42 AM INSTALLATION SERVICE REPRESENTATIVE CBC W/PLT COUNT & AUTO Routine 08/06/2018 DIFFERENTIAL 3:42 AM INSTALLATION SERVICE REPRESENTATIVE BASIC METABOLIC PANEL (7) Routine 08/06/2018 3:42 AM INSTALLATION SERVICE REPRESENTATIVE ECG 12-LEAD STAT 08/05/2018 10:33 PM INSTALLATION SERVICE REPRESENTATIVE BLOOD CULTURE STAT 08/05/2018 10:26 PM INSTALLATION SERVICE REPRESENTATIVE BLOOD CULTURE Routine 08/05/2018 IDENTIFICATION PANEL 9:58 PM INSTALLATION SERVICE REPRESENTATIVE BLOOD CULTURE STAT 08/05/2018 9:58 PM INSTALLATION SERVICE REPRESENTATIVE ED ECG INTERPRETATION Routine 08/05/2018 9:35 PM INSTALLATION SERVICE REPRESENTATIVE CBC W/PLT COUNT & AUTO STAT 08/05/2018 DIFFERENTIAL 9:30 PM INSTALLATION SERVICE REPRESENTATIVE CBC W/PLT COUNT & AUTO STAT 08/05/2018 DIFFERENTIAL 9:30 PM INSTALLATION SERVICE REPRESENTATIVE BASIC METABOLIC PANEL (7) Routine 08/05/2018 9:21 PM INSTALLATION SERVICE REPRESENTATIVE URINALYSIS W/ REFLEX STAT 08/05/2018 URINE CULTURE 8:11 PM INSTALLATION SERVICE REPRESENTATIVE URINE CULTURE STAT 08/05/2018 8:11 PM INSTALLATION SERVICE REPRESENTATIVE CT BRAIN WITHOUT IV STAT 08/05/2018 CONTRAST 5:16 PM INSTALLATION SERVICE REPRESENTATIVE after 06/23/2018 Results * XR Spine Thoracic 2 Views (04/26/2019 2:10 PM CDT) Only the most recent of 2 results within the time period is included. Specimen Narrative Performed At FINAL REPORT [facility] Exam:Thoracic spine two views History:Spinal fusion Comparison: Multiple prior studies. Findings: No acute fracture. New partially visualized thoracic fusion extending from T10 superiorly. Extensive lower thoracic spine to pelvic fusion extending from T9 through the pelvis. Lateral fusion T12-L3 on the left. Prior posterior lumbar decompression with posterior element osseous fusion. Prior vertebral augmentation of T9 and T10. Stable anterolisthesis of L4 on L5. Interbody cage at L5-S1. Multilevel disc space narrowing. No hardware failure or loosening. Impression: Extensive spinal fusion as above. No complication. Signed: Scott Barillas MD Report Verified Date/Time:04/27/2019 08:12:42 Reading Location: [facility] [address] [place] [address] Procedure Note Interface, External Ris In - 04/27/2019 8:14 AM CDT FINAL REPORT Exam: Thoracic spine two views History: Spinal fusion Comparison: Multiple prior studies. Findings: No acute fracture. New partially visualized thoracic fusion extending from T10 superiorly. Extensive lower thoracic spine to pelvic fusion extending from T9 through the pelvis. Lateral fusion T12-L3 on the left. Prior posterior lumbar decompression with posterior element osseous fusion. Prior vertebral augmentation of T9 and T10. Stable anterolisthesis of L4 on L5. Interbody cage at L5-S1. Multilevel disc space narrowing. No hardware failure or loosening. Impression: Extensive spinal fusion as above. No complication. Signed: Scott Barillas MD Report Verified Date/Time: 04/27/2019 08:12:42 Reading Location: [facility] [address] [place] [address] Performing Organization Address City/State/Zipcode Phone Number GE RIS * RHYTHM STRIP - SCAN (02/02/2019 10:50 AM CDT) Only the most recent of 4 results within the time period is included. Narrative Performed At * ECG 12 lead (01/30/2019 4:12 PM CDT) Only the most recent of 6 results within the time period is included. Specimen Narrative Performed At Ventricular Rate 97 BPM GE MUSE Atrial Rate 97 BPM P-R Interval 154 ms QRS Duration 86 ms Q-T Interval 344 ms QTC Calculation(Bazett) 436 ms P [place] 69 degrees R [place] 70 degrees T [place] 55 degrees Normal sinus rhythm Normal ECG When compared with ECG of 25-JAN-2019 08:55, Questionable change in QRS axis Confirmed by MD HARVEY RUPA ([id number]) on 01/31/2019 1:45:16 PM Procedure Note Interface, External Ris In - 01/31/2019 1:45 PM CDT Ventricular Rate 97 BPM Atrial Rate 97 BPM P-R Interval 154 ms QRS Duration 86 ms Q-T Interval 344 ms QTC Calculation([place]azett) 436 ms P [place] 69 degrees R [place] 70 degrees T [place] 55 degrees Normal sinus rhythm Normal ECG When compared with ECG of 25-JAN-2019 08:55, Questionable change in QRS axis Confirmed by MD HARVEY RUPA ([id number]) on 01/31/2019 1:45:16 PM Performing Organization Address City/State/Zipcode Phone Number GE MUSE * CBC with platelet count + automated diff (01/30/2019 5:39 AM CDT) Only the most recent of 48 results within the time period is included. WBC 6.3 3.5 - 10.5 K/L [facility] RBC 2.93 (L) 3.93 - 5.22 M/L [facility] Hemoglobin 8.0 (L) 11.2 - 15.7 GM/DL [facility] Hematocrit 25.8 (L) 34.1 - 44.9 % [facility] MCV 88.1 79.4 - 94.8 fL [facility] MCH 27.3 25.6 - 32.2 pg [facility] MCHC 31.0 (L) 32.2 - 35.5 GM/DL [facility] [facility] RDW 20.0 (H) 11.7 - 14.4 % [facility] Platelets 305 150 - 450 K/CU MM [facility] MPV 9.5 9.4 - 12.3 fL [facility] nRBC 0 0 - 0 /100 WBC [facility] % Neutros 64 % [facility] % Lymphs 21 % [facility] % Monos 10 % [facility] % Eos 4 % [facility] % Baso 1 % [facility] # Neutros 4.00 1.56 - 6.13 K/L [facility] # Lymphs 1.32 1.18 - 3.74 K/L [facility] # Monos 0.62 (H) 0.24 - 0.36 K/L [facility] # Eos 0.25 0.04 - 0.36 K/L [facility] # Baso 0.03 0.01 - 0.08 K/L [facility] Immature 1 0 - 1 % [facility] Granulocytes-[facility] Specimen Blood Performing Organization Address City/[facility]/Zipcode Phone Number [address] * Phosphorus (01/30/2019 5:39 AM CDT) Only the most recent of 12 results within the time period is included. Phosphorus 3.5 2.3 - 4.7 mg/dL [facility] Specimen Blood Performing Organization Address City/[facility]/Zipcode Phone Number [address] * Magnesium (01/30/2019 5:39 AM CDT) Only the most recent of 33 results within the time period is included. Magnesium 1.4 (L) 1.6 - 2.6 mg/dL [facility] Specimen Blood Performing Organization Address City/[facility]/Zipcode Phone Number [place] [phone] [place] [address] * Hemoglobin A1c (01/30/2019 5:39 AM CDT) Hemoglobin A1C 5.1 4.3 - 6.1 % [facility] Specimen Blood Performing Organization Address City/State/[place] [address] [phone] * Basic Metabolic Panel (01/30/2019 5:39 AM CDT) Only the most recent of 55 results within the time period is included. Sodium 134 (L) 136 - 145 meq/L [facility] Potassium 4.5 3.5 - 5.1 meq/L [facility] Chloride 101 98 - 107 meq/L [facility] CO2 26 22 - 29 meq/L [facility] BUN 12 7 - 21 mg/dL [facility] Creatinine 0.67 0.57 - 1.25 mg/dL [facility] Glucose 91 70 - 105 mg/dL [facility] Calcium 8.8 8.4 - 10.2 mg/dL [facility] EGFR 86Comment: ESTIMATED GFR IS mL/min/1.73 sq m [facility] NOT ACCURATE CREATININE [facility] CLEARANCE IN PREDICTING GLOMERULAR FILTRATION RATE. ESTIMATED GFR IS NOT APPLICABLE FOR DIALYSIS PATIENTS. Specimen Blood Performing Organization Address City/[facility] [place] [address] [phone] [place] [address] * POC-Glucose meter (01/29/2019 9:47 PM CDT) Only the most recent of 5 results within the time period is included. POC-Glucose Meter 106Comment: TESTED AT [facility] 70 - 110 mg/dL [address] Specimen Blood Performing Organization Address City/State/Zipcode Phone Number [address] [address] [facility] * Troponin I (01/29/2019 6:02 PM CDT) Only the most recent of 6 results within the time period is included. Troponin I <0.01 0.00 - 0.03 ng/mL [facility] Specimen Blood Narrative Performed At Troponin I (TnI) levels must be interpreted in the context of the presenting [facility] symptoms and the clinical findings. Elevated TnI levels indicate myocardial [facility] damage, but are not specific for ischemic heart disease. Elevated TnI levels are seen in patients with other cardiac conditions (including myocarditis and congestive heart failure), and slight TnI elevations occur in patients with other conditions, including sepsis, renal failure, acidosis, acute neurological disease, and persistent tachyarrhythmia. Performing Organization Address City/[facility] Cent[facility]ode Phone Number [address] * Vancomycin level, trough (01/27/2019 5:10 PM CDT) Only the most recent of 6 results within the time period is included. Vancomycin Tr 17.3 10.0 - 20.0 ug/mL [facility] Specimen Blood Performing Organization Address City/[facility] [place] [address] [phone] [place] [address] * Sodium (01/24/2019 1:06 PM CDT) Sodium 134 (L) 136 - 145 meq/L [facility] Specimen Blood Performing Organization Address [facility] [place] [address] [phone] * Potassium (01/24/2019 10:55 AM CDT) Potassium 3.8 3.5 - 5.1 meq/L [facility] Specimen Blood Narrative Performed At Check Serum Potassium level 2 hours after oral potassium replacement completed [facility] or 30 min after intravenous potassium replacement. [facility] Performing Organization Address [facility] Medical [place] [address] [phone] [place] [address] * PERIPHERAL VASCULAR REPORT - SCAN (01/22/2019 9:23 PM CDT) Narrative Performed At * TRANSFUSION SERVICE REPORT - SCAN (01/22/2019 6:03 PM CDT) Only the most recent of 2 results within the time period is included. Narrative Performed At * VRE screen (01/22/2019 9:48 AM CDT) Result No vancomycin-resistant [facility] Enterococcus isolated [facility] Specimen Stool Performing Organization Address City/State/Zipcode Phone Number [facility] [phone] [place] [address] * Prepare RBC (01/21/2019 11:55 PM CDT) Unit ABO A Neg [facility] [place] UNIT NUMBER [id number] [facility] [place] Status TX_TIMEINCHART [facility] [place] Blood Bank Product RED BLOOD CELLS [facility] [place] PRODUCT CODE [id number] [facility] [place] Unit ABO A Neg [facility] [place] UNIT NUMBER [id number] [facility] [place] Status TX_TIMEINCHART [facility] [place] Blood Bank Product RED BLOOD CELLS [facility] [place] PRODUCT CODE [id number] [facility] [place] CROSSMATCH COMPATIBLE [facility] [place] CROSSMATCH COMPATIBLE [facility] [place] Performing Organization Address City/State/[facility] Centercode Phone Number [facility] [place] * ECHOCARDIOGRAM REPORT - SCAN (01/21/2019 9:22 PM CDT) Narrative Performed At * 2D Echo W/Doppler(CW/PW/Color) (01/21/2019 3:02 PM CDT) Ejection Fraction [facility] Specimen Narrative Performed At Transthoracic Echocardiography Report (TTE) [facility]ARTLAB Demographics [facility] Patient NameANDRES CUEVASDate of Study01/21/2019 MOLLY Female Visit [id number] Room [id number] Number Date of 1945RefAntony Rivers Physician Age 73 year(s)Miroslava Lewis RDCS Field Sales Specialist Leidy Amna Interpreting Austin Tate MD Physician Procedure Type of Study TTE procedure:2DECHO W DOPPLER(CW/PW/COLOR) (Routine) Indications:Known or suspected heart failure. Clinical History HGB 10.2 HCT 31.3 % Asthma, HLD, HTN, Kyphoscoliosis Height: 65 inches Weight: 77.56 kg (171 lbs) BSA: 1.85 m^2 BMI: 28.46 kg/m^2 HR: 92 bpm BP: 145/75 mmHg Summary 1. Normal left ventricular chamber size. Normal wall thickness. Normal overall left ventricular systolic function. No apparent segmental wall motion abnormalities. LVEF by Medina's method of disk assessment is normal (55-60%). Grade 1 diastolic dysfunction (impaired relaxation and low-normal LA pressure). LA size is normal (16-34 ml/m2). 2. The right ventricular chamber size and systolic function are within normal limits. RA size is normal. Estimated peak systolic PA pressure is 35-40 mmHg. 3. Mild tricuspid regurgitation. Previous Study Compared to the previous study there was no significant change. Signature Findings Technical Quality: Technically adequate exam. Left Ventricle The LV endocardium is well visualized. Normal left ventricular chamber size. Normal wall thickness. Normal overall left ventricular systolic function. No apparent segmental wall motion abnormalities. LVEF by Medina's method of disk assessment is normal (55-60%) . Grade 1 diastolic dysfunction (impaired relaxation and low-normal LA pressure). Left AtriumLA size is normal (16-34 ml/m2) . Right VentricleThe right ventricular chamber size and systolic function are within normal limits. Right Atrium RA size is normal. Aortic Valve Normal AoV structure. No evidence of aortic regurgitation. Mitral Valve Mild MV leaflet thickening. No significant mitral regurgitation. Tricuspid ValveMild tricuspid regurgitation. Estimated peak systolic PA pressure is 35-40 mmHg . Pulmonic Valve Normal PV structure and function. AortaAortic root size (SInus of Valsalva diameter) is normal . PericardiumNo significant pericardial effusion is visualized. IVC/SVC/PA/PV/PleuralThe estimated RA pressure by IVC dynamics 0-5mmHg . Chambers/Structures Left Atrium LA Volume: 33.93 ml LA Area: 13.81 cm^2 LA Vol. Index: 18 ml/m^2 Left Ventricle LVIDd: 4.65 cm LVIDs: 2.81 cm LV Septum Diastolic: 1.01 cm LV PW Diastolic: 1.11 cmLV FS: 39.6 % LVEDV Medina's:42.88 ml LVESV Medina's:16.66 mlLVEDVI: 23 ml/m^2 LVEF Medina's: 61.2 %LVESVI: 9 ml/m^2 LVOT Diameter: 1.8 cm Right Ventricle TAPSE: 1.98 cm Aorta Ao Root S of Lyudmila.: 3.03 cmAscending Aorta: 3.44 cm Doppler/Quantitative Measurements Mitral Valve MV Peak E-Wave: 0.86 m/sMV Peak A-Wave: 0.93 m/s E/A Ratio: 0.92 Peak Gradient: 2.95 mmHg Deceleration Time: 174.9 msec MV Carlos Alberto. Peak: Tissue Doppler E' Lateral Velocity: 0.08 m/s E/E': 10.66 Aortic Valve Peak Velocity: 1.8 m/s Mean Velocity: 1.12 m/s Peak Gradient: 12.95 mmHgMean Gradient: 5.87 mmHg AV Area (continuity): 2.02 cm^2 AV VTI: 30.16 cm AV DVI: 0.79 LVOT Peak Velocity: 1.28 m/s Peak Gradient: 6.58 mmHg Mean Velocity: 0.82 m/s Mean Gradient: 3.18 mmHg LVOT Diameter: 1.8 cm LVOT VTI: 23.93 cm LVOT Area: 2.54 cm^2LVOT SV:60.86 ml LVOT CO: 5.6 l/minLVOT CI: 3.03 l/min/m^2 Tricuspid Valve TR Velocity: 2.95 m/s TR Gradient: 34.7 mmHg Procedure Note Interface, External Ris In - 01/21/2019 6:28 PM CDT Transthoracic Echocardiography Report (TTE) Demographics Patient Name ANDRES CUEVAS Date of Study 01/21/2019 MOLLY Gender Female Visit Number [id number] Race Room Number [id number] Number Date of 1945 Referring Savage Rivers Physician Age 73 year(s) Bottle Gauger Michelle Lewis, [facility] Field Sales Specialist Leidy Woo Interpreting Austin Tate MD Physician Procedure Type of Study TTE procedure:2DECHO W DOPPLER(CW/PW/COLOR) (Routine) Indications:Known or suspected heart failure. Clinical History HGB 10.2 HCT 31.3 % Asthma, HLD, HTN, Kyphoscoliosis Height: 65 inches Weight: 77.56 kg (171 lbs) BSA: 1.85 m^2 BMI: 28.46 kg/m^2 HR: 92 bpm BP: 145/75 mmHg Summary 1. Normal left ventricular chamber size. Normal wall thickness. Normal overall left ventricular systolic function. No apparent segmental wall motion abnormalities. LVEF by Medina's method of disk assessment is normal (55-60%). Grade 1 diastolic dysfunction (impaired relaxation and low-normal LA pressure). LA size is normal (16-34 ml/m2). 2. The right ventricular chamber size and systolic function are within normal limits. RA size is normal. Estimated peak systolic PA pressure is 35-40 mmHg. 3. Mild tricuspid regurgitation. Previous Study Compared to the previous study there was no significant change. Signature Findings Technical Quality: Technically adequate exam. Left Ventricle The LV endocardium is well visualized. Normal left ventricular chamber size. Normal wall thickness. Normal overall left ventricular systolic function. No apparent segmental wall motion abnormalities. LVEF by Medina's method of disk assessment is normal (55-60%) . Grade 1 diastolic dysfunction (impaired relaxation and low-normal LA pressure). Left Atrium LA size is normal (16-34 ml/m2) . Right Ventricle The right ventricular chamber size and systolic function are within normal limits. Right Atrium RA size is normal. Aortic Valve Normal AoV structure. No evidence of aortic regurgitation. Mitral Valve Mild MV leaflet thickening. No significant mitral regurgitation. Tricuspid Valve Mild tricuspid regurgitation. Estimated peak systolic PA pressure is 35-40 mmHg . Pulmonic Valve Normal PV structure and function. Aorta Aortic root size (SInus of Valsalva diameter) is normal . Pericardium No significant pericardial effusion is visualized. IVC/SVC/PA/PV/Pleural The estimated RA pressure by IVC dynamics 0-5mmHg . Chambers/Structures Left Atrium LA Volume: 33.93 ml LA Area: 13.81 cm^2 LA Vol. Index: 18 ml/m^2 Left Ventricle LVIDd: 4.65 cm LVIDs: 2.81 cm LV Septum Diastolic: 1.01 cm LV PW Diastolic: 1.11 cm LV FS: 39.6 % LVEDV Medina's:42.88 ml LVESV Medina's:16.66 ml LVEDVI: 23 ml/m^2 LVEF Medina's: 61.2 % LVESVI: 9 ml/m^2 LVOT Diameter: 1.8 cm Right Ventricle TAPSE: 1.98 cm Aorta Ao Root S of Lyudmila.: 3.03 cm Ascending Aorta: 3.44 cm Doppler/Quantitative Measurements Mitral Valve MV Peak E-Wave: 0.86 m/s MV Peak A-Wave: 0.93 m/s E/A Ratio: 0.92 Peak Gradient: 2.95 mmHg Deceleration Time: 174.9 msec MV Carlos Alberto. Peak: Tissue Doppler E' Lateral Velocity: 0.08 m/s E/E': 10.66 Aortic Valve Peak Velocity: 1.8 m/s Mean Velocity: 1.12 m/s Peak Gradient: 12.95 mmHg Mean Gradient: 5.87 mmHg AV Area (continuity): 2.02 cm^2 AV VTI: 30.16 cm AV DVI: 0.79 LVOT Peak Velocity: 1.28 m/s Peak Gradient: 6.58 mmHg Mean Velocity: 0.82 m/s Mean Gradient: 3.18 mmHg LVOT Diameter: 1.8 cm LVOT VTI: 23.93 cm LVOT Area: 2.54 cm^2 LVOT SV:60.86 ml LVOT CO: 5.6 l/min LVOT CI: 3.03 l/min/m^2 Tricuspid Valve TR Velocity: 2.95 m/s TR Gradient: 34.7 mmHg Performing Organization Address City/State/Zipcode Phone Number [facility] [employer] * Venous doppler legs bilateral (01/21/2019 11:21 AM CDT) Ejection Fraction [facility] ECHO HEARTLAB [employer] SolutionsALEXANDRAON FabulyzerELOISE Specimen Impressions Performed At Right Impression [facility] ECHO HEARTJusticeBox 1. There is no deep venous obstruction in the common femoral, profunda KohortON Fabulyzer femoral, femoral, popliteal, posterior tibial or peroneal veins. 2. There is no superficial venous obstruction in the great saphenous vein. Left Impression 1. There is no deep venous obstruction in the common femoral, profunda femoral, femoral, popliteal, posterior tibial or peroneal veins. 2. There is no superficial venous obstruction in the great saphenous vein. Conclusions Summary Venous duplex imaging and compression of the bilateral lower extremities were performed. The veins were adequately visualized. The bilateral venous systems were patent and compressible with no evidence of thrombus. The venous Doppler waveforms were phasic with respiration. Signature Velocities are measured in cm/s ; Diameters are measured in cm Narrative Performed At LAB - Lower Extremities DVT Study [facility] ECHO HEARTLAB Demographics [facility] Patient Name ANDRES CUEVAS Date of Study01/21/2019 MOLLY [id number] Age73 Visit Number [id number] Gender Female Accession Number [id number] Date of Birth1945 [facility] Room [id number] Physician SonographerLori Razo Interpreting MD Lia Stringer, NORBERTOTPhysienzo Mosqueda T Procedure Type of Study: Veins: Lower Extremities DVT Study, VENOUS DOPPLER LEG, BILATERAL. Indications for Study:Prolonged immobilization. Patient Status:Routine. Study Location:Portable. Technical Quality:Adequate visualization. Risk Factors History of Disease + +----+ + !Diagnosis !Date!Comments ! + +----+ + !Signs and !!S/P Fall ! !symptoms: !!Syncope ! + +----+ + !History/Risk!!Spinal Cord Compression, T/L Spine surgery! !Factors:!!05/12/2018 and hypertension! + +----+ + Procedure Note Interface, External Ris In - 01/21/2019 11:09 PM CDT PV LAB - Lower Extremities DVT Study Demographics Patient Name ANDRES CUEVAS Date of Study 01/21/2019 MOLLY Age 73 Visit Number [id number] Gender Female Accession Number [id number] Date of 1945 Referring Silvestre Wan Room Number 7409 Physician Bottle Gauger Lori Razo Interpreting MD Lia Stringer, RVT Physician Lesley Mosqueda RVT Procedure Type of Study: Veins: Lower Extremities DVT Study, VENOUS DOPPLER LEG, BILATERAL. Indications for Study:Prolonged immobilization. Patient Status:Routine. Study Location:Portable. Technical Quality:Adequate visualization. Risk Factors History of Disease + +----+ + !Diagnosis !Date!Comments ! + +----+ + !Signs and ! !S/P Fall ! !symptoms: ! !Syncope ! + +----+ + !History/Risk ! !Spinal Cord Compression, T/L Spine surgery ! !Factors: ! !05/12/2018 and hypertension ! + +----+ + Impressions Right Impression 1. There is no deep venous obstruction in the common femoral, profunda femoral, femoral, popliteal, posterior tibial or peroneal veins. 2. There is no superficial venous obstruction in the great saphenous vein. Left Impression 1. There is no deep venous obstruction in the common femoral, profunda femoral, femoral, popliteal, posterior tibial or peroneal veins. 2. There is no superficial venous obstruction in the great saphenous vein. Conclusions Summary Venous duplex imaging and compression of the bilateral lower extremities were performed. The veins were adequately visualized. The bilateral venous systems were patent and compressible with no evidence of thrombus. The venous Doppler waveforms were phasic with respiration. Signature Velocities are measured in cm/s ; Diameters are measured in cm Performing Organization Address City/[facility] Centercode Phone Number [facility] ECHO HEARTLAB MKCKESSON CPACS * B-type Natriuretic Factor (BNP) (01/21/2019 10:29 AM CDT) Only the most recent of 2 results within the time period is included. BNP 366 (H) 0 - 100 pg/mL [facility] Specimen Blood Performing Organization Address City/[facility]/Zipcode Phone Number [facility] [address] [place] [address] * Vancomycin level, random (01/21/2019 9:42 AM CDT) Vancomycin Rm 19.9 ug/mL [facility] Specimen Blood Narrative Performed At Reference Range: No Normals [facility] 30 mins before next dose [facility] Performing Organization Address City/[facility] Centercond Phone Number [address] * Blood Culture - Routine (Left Venipuncture) (01/21/2019 3:44 AM CDT) Only the most recent of 14 results within the time period is included. Result No growth in 5 days [facility] Specimen Blood Performing Organization Address [facility] Center[facility] Phone Number [address] * Potassium-Stat Lab (01/20/2019 5:56 PM CDT) Only the most recent of 3 results within the time period is included. Potassium 4.3 3.6 - 5.5 meq/L [facility] Specimen Blood, Arterial Performing Organization Address [facility] Phone Number [address] * Sodium Na-Stat Lab (01/20/2019 5:56 PM CDT) Only the most recent of 3 results within the time period is included. Sodium 138 135 - 148 meq/L [facility] Specimen Blood, Arterial Performing Organization Address City/[facility] [place] [address] [phone] [place] [address] * Glucose-Stat Lab (01/20/2019 5:56 PM CDT) Only the most recent of 3 results within the time period is included. Glucose 121 (H) 70 - 110 mg/dL [facility] Specimen Blood, Arterial Performing Organization Address City/[facility]/Zipcode Phone Number [facility] [address] [place] [address] [facility] * HGB/HCT (H&H)-Stat Lab (01/20/2019 5:56 PM CDT) Only the most recent of 3 results within the time period is included. Hemoglobin 10.7 (L) 12.0 - 15.0 g/dL [facility] Hematocrit 31.0 (L) 36.0 - 45.0 % [facility] Specimen Blood, Arterial Performing Organization Address City/[facility] Centercode Phone Number [address] [address] [facility] * Calcium, Ionized (01/20/2019 5:56 PM CDT) Only the most recent of 3 results within the time period is included. Calcium, Ion 1.21 1.12 - 1.27 mmol/L [facility] pH, Blood 7.28 [facility] Specimen Blood Performing Organization Address City/[facility] Centercode Phone Number [address] [address] [facility] * Blood gas, arterial (01/20/2019 5:56 PM CDT) Only the most recent of 3 results within the time period is included. pH, Arterial 7.28 (L) 7.35 - 7.45 [facility] pCO2, Arterial 54 (H) 35 - 45 mmHg [facility] pO2, Arterial 350 (H) 80 - 90 mmHg [facility] O2 Sat, Arterial 99.7 (H) 96.0 - 97.0 % [facility] HCO3, Arterial 25 21 - 29 mmol/L [facility] Base Excess, Arterial -2.2 (L) -2.0 - 3.0 mmol/L [facility] Patient Temperature 37.0 C [facility] FIO2 100.0 % [facility] Specimen Blood, Arterial Performing Organization Address City/State/Zipcode Phone Number [facility] [address] [place] [address] MEDICAL [facility]ENTER * [place] graduate internship in or 30 minute increments (01/20/2019 5:45 PM CDT) Specimen Narrative Performed At PROCEDURE PERFORMED IN O.R. - PLEASE REFER TO THE INTRAOPERATIVE [facility] REPORT. Procedure Note Interface, External Ris In - 01/28/2019 6:30 PM CDT PROCEDURE PERFORMED IN O.R. - PLEASE REFER TO THE INTRAOPERATIVE REPORT. Performing Organization Address City/State/Zipcode Phone Number [facility] * Transfuse Leuko-Red RBC (01/20/2019 5:15 PM CDT) Only the most recent of 2 results within the time period is included. * SHORT LATENCY SEP ALL LIMBS (01/20/2019 4:58 PM CDT) Specimen Narrative Performed At INTRAOPERATIVE MONITORING REPORT [facility] Patient Name: Andres Cuevas [facility] Surgery Date:01/20/2019 [place] Pro: S/N - [id number] Monitoring began at 1231 and finished at 1658 Surgeon:Rafita Lazar MD Examining Physician: Osman Padilla MD Monitoring Technologist:BRADLEY Olguin Procedure: T3-T9 PSF extension from T9-pelvis fusion Stimulation Parameters: Ulnar nerves individually stimulated at the wrist Rate 2.18 Hz, Intensity 37mA, Duration 0.3ms Posterior Tibial nerves individually stimulated at the ankle Rate 2.18 Hz, Intensity 60mA, Duration 0.3ms Filters 30-500Hz, Notch Off Free-running EEG recorded with bipolar derivation, using modified International 10/20 placements: C3-FPZ, C4-FPZ TcMEPs of bilateral ADM/APB, VL, TA, GN and Adductor Hallicus muscle groups Recording Parameters:EP1, EP2, CV, CP3, CP4, and FPz Description: Intraoperative neurophysiological monitoring was performed using a combination of upper and lower extremity somatosensory evoked potentials, TcMEPs and EEGs.A real-time connection with the examining neurologist was established and maintained throughout the operative procedure by the monitoring technologist. Upper extremity somatosensory evoked potentials were recorded centrally at the cervical and corticals following ulnar nerve stimulation. Lower extremity somatosensory evoked potentials were recorded centrally at the cervical and cortical levels following posterior tibial nerve stimulation at the ankle. All SSEPs were well formed in all extremities at baselines. All SSEPs were stable at baselines with no changes from baselines throughout procedure. Surgeon aware of all SSEP responses during case and at closing. TcMEP responses were obtained post-positioning and were present in only the upper extremities at baselines; responses were stable with baselines at closing. Surgeon aware. Free-running EEG remained symmetrical throughout the procedure with no focal changes noted to occur. Conclusion:These results suggest the absence of untoward, secondary effects on anterior and posterior column function as a consequence of this surgical procedure. Osman Padilla MD G82.20, M46.44 Procedure Note Interface, External Ris In - 01/25/2019 11:34 PM CDT INTRAOPERATIVE MONITORING REPORT Patient Name: Andres Cuevas [facility] Surgery Date: 01/20/2019 [place] Pro: S/N - [id number] Monitoring began at 1231 and finished at 1658 Surgeon: Rafita Lazar MD Examining Physician: Osman Padilla MD Monitoring Technologist: BRADLEY Olguin Procedure: T3-T9 PSF extension from T9-pelvis fusion Stimulation Parameters: Ulnar nerves individually stimulated at the wrist Rate 2.18 Hz, Intensity 37mA, Duration 0.3ms Posterior Tibial nerves individually stimulated at the ankle Rate 2.18 Hz, Intensity 60mA, Duration 0.3ms Filters 30-500Hz, Notch Off Free-running EEG recorded with bipolar derivation, using modified International 10/20 placements: C3-FPZ, C4-FPZ TcMEPs of bilateral ADM/APB, VL, TA, GN and Adductor Hallicus muscle groups Recording Parameters: EP1, EP2, CV, CP3, CP4, and FPz Description: Intraoperative neurophysiological monitoring was performed using a combination of upper and lower extremity somatosensory evoked potentials, TcMEPs and EEGs. A real-time connection with the examining neurologist was established and maintained throughout the operative procedure by the monitoring technologist. Upper extremity somatosensory evoked potentials were recorded centrally at the cervical and corticals following ulnar nerve stimulation. Lower extremity somatosensory evoked potentials were recorded centrally at the cervical and cortical levels following posterior tibial nerve stimulation at the ankle. All SSEPs were well formed in all extremities at baselines. All SSEPs were stable at baselines with no changes from baselines throughout procedure. Surgeon aware of all SSEP responses during case and at closing. TcMEP responses were obtained post-positioning and were present in only the upper extremities at baselines; responses were stable with baselines at closing. Surgeon aware. Free-running EEG remained symmetrical throughout the procedure with no focal changes noted to occur. Conclusion: These results suggest the absence of untoward, secondary effects on anterior and posterior column function as a consequence of this surgical procedure. Osman Padilla MD G82.20, M46.44 Performing Organization Address City/[facility]/Zipcode Phone Number [facility] * Antibody identification (01/20/2019 4:12 PM CDT) ANTIBODY ID ([id number]) Anti-E SAFETRACE [place] Antibody Consult SIGNED OUTComment: Anti E SAFETRACE [place] causes RBC injury, transfuse E negative RBCs.Electronic Signature: James Reyes M.D. Specimen Performing Organization Address City/[facility] Cent[facility]ode Phone Number [place]AFETRACE [place] * XR chest 1 view portable / bedside (01/20/2019 11:30 AM CDT) Only the most recent of 5 results within the time period is included. Specimen Narrative Performed At FINAL REPORT [employer] Portable chest. CLINICAL HISTORY: pre-op. COMPARISON STUDY: Image 2018. FINDINGS: The cardiac silhouette is enlarged. The pulmonary parenchyma demonstrates increased interstitial markings with atelectatic changes. The support lines and tubes are unchanged. No pneumothorax is seen. Hardware is seen in the spine. IMPRESSION: No significant change. Signed: Matt Goodman MD Report Verified Date/Time:01/20/2019 11:50:16 Reading Location: [facility] Radiology Reading Room Procedure Note Interface, External Ris In - 01/20/2019 11:52 AM CDT FINAL REPORT Portable chest. CLINICAL HISTORY: pre-op. COMPARISON STUDY: Image 2018. FINDINGS: The cardiac silhouette is enlarged. The pulmonary parenchyma demonstrates increased interstitial markings with atelectatic changes. The support lines and tubes are unchanged. No pneumothorax is seen. Hardware is seen in the spine. IMPRESSION: No significant change. Signed: Matt Goodman MD Report Verified Date/Time: 01/20/2019 11:50:16 Reading Location: [facility] Radiology Reading Room Performing Organization Address City/State/Zipcode Phone Number [facility] * Urinalysis w/Microscopic (01/20/2019 5:53 AM CDT) Only the most recent of 2 results within the time period is included. Color, UA Light Yellow [facility] Clarity, UA Clear [facility] Specific [place], UA 1.009 1.001 - 1.035 [facility] pH, UA 6.5 5.0 - 8.0 [facility] Protein, UA Negative Negative [facility] Glucose, UA Negative Negative [facility] Ketones, UA Negative Negative [facility] Bilirubin, UA Negative Negative [facility] Blood, UA Negative Negative [facility] Nitrite, UA Negative Negative [facility] Leukocytes, UA Large (A) Negative [facility] Urobilinogen, UA 0.2 0.2 - 1.0 mg/dL [facility] RBC, UA 2 /HPF [facility] WBC, UA 28 /HPF [facility] Bacteria, UA Rare [facility] Mucus Rare [facility] Squam Epithel, UA 1 /HPF [facility] Specimen Source [facility] Specimen Urine Performing Organization Address City/State/Zipcode Phone Number [facility] [address] [place] [address] [facility] * MR spine lumbar w/wo contrast (01/20/2019 4:34 AM CDT) Specimen Narrative Performed At FINAL REPORT [email or web address] EXAM: MRI thoracic spine with and without contrast. MRI lumbar spine with and without contrast. CLINICAL HISTORY: Vertebral body fx suspected, osteoporosis suspected, first study. Paraplegia. TECHNIQUE: MRI of the thoracic and lumbar was performed with and without intravenous contrast, utilizing the following sequences: Sagittal T1, T2, STIR; axial T1 and T2. COMPARISON: No prior study for direct comparison. Correlation is made with CT thoracic and lumbar spine 01/08/[address] lumbar spine 01/19/2019. FINDINGS: The bridge repairer view demonstrates mild reversal of cervical lordosis. There is partial fusion at C5/C6. There is a mild anterolisthesis at C3/C4. There are multilevel degenerative changes of the visualized cervical spine with acquired spinal canal stenosis. The patient is status post posterior spinal fixation from T9-S2 and L5/S1 discectomy. The patient is status post T12-L5 laminectomies with spinal decompression. There are vertebroplasty changes at T9 and T10. There is a mild chronic compression fracture deformity of T7 involving the superior endplate. There is a severe compression fracture deformity of T8 with retropulsion. There is mild cord compression at T8/T9 but no cord signal abnormality. There is diffuse T1 hypointensity and enhancement within the T8 and T9 vertebral bodies with endplate loss and paravertebral enhancement/phlegmonous change compatible with discitis-osteomyelitis. There is epidural enhancement from T6/T7 through T10 which may represent phlegmonous change with associated spinal canal narrowing. There is a chronic compression fracture deformity of L1 and L2 due to prior discitis-osteomyelitis. There is a grade 1 anterolisthesis at L4/L5. There is severe degenerative disc disease at L4/L5. The conus medullaris is is not well seen but appears to terminate at L1/L2. The cauda equina roots are unremarkable. There are small bilateral pleural effusions. There are small T2 hyperintensities in the right kidney which may represent cysts. IMPRESSION: Post surgical changes as described. Discitis-osteomyelitis at T8/T9 with paravertebral phlegmon. Epidural enhancement from T6/T7-T10 which may represent phlegmonous change. Severe compression fracture of T8 with retropulsion. Mild cord compression at T8/T9 without cord signal abnormality. Small bilateral pleural effusions. Signed: Lele Aviles MD Report Verified Date/Time:01/20/2019 04:53:01 Reading Location: [address] Body Reading Room Procedure Note Interface, External Ris In - 01/20/2019 5:09 AM CDT FINAL REPORT EXAM: MRI thoracic spine with and without contrast. MRI lumbar spine with and without contrast. CLINICAL HISTORY: Vertebral body fx suspected, osteoporosis suspected, first study. Paraplegia. TECHNIQUE: MRI of the thoracic and lumbar was performed with and without intravenous contrast, utilizing the following sequences: Sagittal T1, T2, STIR; axial T1 and T2. COMPARISON: No prior study for direct comparison. Correlation is made with CT thoracic and lumbar spine 01/08/[address] lumbar spine 01/19/2019. FINDINGS: The bridge repairer view demonstrates mild reversal of cervical lordosis. There is partial fusion at C5/C6. There is a mild anterolisthesis at C3/C4. There are multilevel degenerative changes of the visualized cervical spine with acquired spinal canal stenosis. The patient is status post posterior spinal fixation from T9-S2 and L5/S1 discectomy. The patient is status post T12-L5 laminectomies with spinal decompression. There are vertebroplasty changes at T9 and T10. There is a mild chronic compression fracture deformity of T7 involving the superior endplate. There is a severe compression fracture deformity of T8 with retropulsion. There is mild cord compression at T8/T9 but no cord signal abnormality. There is diffuse T1 hypointensity and enhancement within the T8 and T9 vertebral bodies with endplate loss and paravertebral enhancement/phlegmonous change compatible with discitis-osteomyelitis. There is epidural enhancement from T6/T7 through T10 which may represent phlegmonous change with associated spinal canal narrowing. There is a chronic compression fracture deformity of L1 and L2 due to prior discitis-osteomyelitis. There is a grade 1 anterolisthesis at L4/L5. There is severe degenerative disc disease at L4/L5. The conus medullaris is is not well seen but appears to terminate at L1/L2. The cauda equina roots are unremarkable. There are small bilateral pleural effusions. There are small T2 hyperintensities in the right kidney which may represent cysts. IMPRESSION: Post surgical changes as described. Discitis-osteomyelitis at T8/T9 with paravertebral phlegmon. Epidural enhancement from T6/T7-T10 which may represent phlegmonous change. Severe compression fracture of T8 with retropulsion. Mild cord compression at T8/T9 without cord signal abnormality. Small bilateral pleural effusions. Signed: Lele Aviles MD Report Verified Date/Time: 01/20/2019 04:53:01 Reading Location: [address] Body Reading Room Performing Organization Address City/State/Zipcode Phone Number [email or web address] * MR thoracic spine without & with IV contrast (01/20/2019 4:34 AM CDT) Specimen Narrative Performed At FINAL REPORT [email or web address] EXAM: MRI thoracic spine with and without contrast. MRI lumbar spine with and without contrast. CLINICAL HISTORY: Vertebral body fx suspected, osteoporosis suspected, first study. Paraplegia. TECHNIQUE: MRI of the thoracic and lumbar was performed with and without intravenous contrast, utilizing the following sequences: Sagittal T1, T2, STIR; axial T1 and T2. COMPARISON: No prior study for direct comparison. Correlation is made with CT thoracic and lumbar spine 01/08/[address] lumbar spine 01/19/2019. FINDINGS: The bridge repairer view demonstrates mild reversal of cervical lordosis. There is partial fusion at C5/C6. There is a mild anterolisthesis at C3/C4. There are multilevel degenerative changes of the visualized cervical spine with acquired spinal canal stenosis. The patient is status post posterior spinal fixation from T9-S2 and L5/S1 discectomy. The patient is status post T12-L5 laminectomies with spinal decompression. There are vertebroplasty changes at T9 and T10. There is a mild chronic compression fracture deformity of T7 involving the superior endplate. There is a severe compression fracture deformity of T8 with retropulsion. There is mild cord compression at T8/T9 but no cord signal abnormality. There is diffuse T1 hypointensity and enhancement within the T8 and T9 vertebral bodies with endplate loss and paravertebral enhancement/phlegmonous change compatible with discitis-osteomyelitis. There is epidural enhancement from T6/T7 through T10 which may represent phlegmonous change with associated spinal canal narrowing. There is a chronic compression fracture deformity of L1 and L2 due to prior discitis-osteomyelitis. There is a grade 1 anterolisthesis at L4/L5. There is severe degenerative disc disease at L4/L5. The conus medullaris is is not well seen but appears to terminate at L1/L2. The cauda equina roots are unremarkable. There are small bilateral pleural effusions. There are small T2 hyperintensities in the right kidney which may represent cysts. IMPRESSION: Post surgical changes as described. Discitis-osteomyelitis at T8/T9 with paravertebral phlegmon. Epidural enhancement from T6/T7-T10 which may represent phlegmonous change. Severe compression fracture of T8 with retropulsion. Mild cord compression at T8/T9 without cord signal abnormality. Small bilateral pleural effusions. Signed: Lele Aviles MD Report Verified Date/Time:01/20/2019 04:53:01 Reading Location: [facility] C013Y CT Body Reading Room Procedure Note Interface, External Ris In - 01/20/2019 5:09 AM CDT FINAL REPORT EXAM: MRI thoracic spine with and without contrast. MRI lumbar spine with and without contrast. CLINICAL HISTORY: Vertebral body fx suspected, osteoporosis suspected, first study. Paraplegia. TECHNIQUE: MRI of the thoracic and lumbar was performed with and without intravenous contrast, utilizing the following sequences: Sagittal T1, T2, STIR; axial T1 and T2. COMPARISON: No prior study for direct comparison. Correlation is made with CT thoracic and lumbar spine 01/08/[address] lumbar spine 01/19/2019. FINDINGS: The bridge repairer view demonstrates mild reversal of cervical lordosis. There is partial fusion at C5/C6. There is a mild anterolisthesis at C3/C4. There are multilevel degenerative changes of the visualized cervical spine with acquired spinal canal stenosis. The patient is status post posterior spinal fixation from T9-S2 and L5/S1 discectomy. The patient is status post T12-L5 laminectomies with spinal decompression. There are vertebroplasty changes at T9 and T10. There is a mild chronic compression fracture deformity of T7 involving the superior endplate. There is a severe compression fracture deformity of T8 with retropulsion. There is mild cord compression at T8/T9 but no cord signal abnormality. There is diffuse T1 hypointensity and enhancement within the T8 and T9 vertebral bodies with endplate loss and paravertebral enhancement/phlegmonous change compatible with discitis-osteomyelitis. There is epidural enhancement from T6/T7 through T10 which may represent phlegmonous change with associated spinal canal narrowing. There is a chronic compression fracture deformity of L1 and L2 due to prior discitis-osteomyelitis. There is a grade 1 anterolisthesis at L4/L5. There is severe degenerative disc disease at L4/L5. The conus medullaris is is not well seen but appears to terminate at L1/L2. The cauda equina roots are unremarkable. There are small bilateral pleural effusions. There are small T2 hyperintensities in the right kidney which may represent cysts. IMPRESSION: Post surgical changes as described. Discitis-osteomyelitis at T8/T9 with paravertebral phlegmon. Epidural enhancement from T6/T7-T10 which may represent phlegmonous change. Severe compression fracture of T8 with retropulsion. Mild cord compression at T8/T9 without cord signal abnormality. Small bilateral pleural effusions. Signed: Lele Aviles MD Report Verified Date/Time: 01/20/2019 04:53:01 Reading Location: [facility] B1 C013Y CT Body Reading Room Performing Organization Address City/State/Zipcode Phone Number [facility] * Type and screen, automated (01/20/2019 12:33 AM CDT) ABO/RH AUTOMATED (BEAKER) A POSITIVE [facility] Ab Scrn POSITIVEComment: echo 2 [facility] Specimen Blood Performing Organization Address City/[facility] Centercode Phone Number [facility] [address] [place] [address] [facility] * PT/aPTT (01/20/2019 12:33 AM CDT) Only the most recent of 4 results within the time period is included. Protime 14.1 11.7 - 14.7 seconds [facility] INR 1.1 <=5.9 [facility] PTT 44.4 (H) 22.5 - 36.0 seconds [facility] Specimen Blood Narrative Performed At RECOMMENDED COUMADIN/WARFARIN INR THERAPY RANGES [facility] STANDARD DOSE: 2.0 - 3.0 Includes: PROPHYLAXIS for venous thrombosis, [facility] systemic embolization; TREATMENT for venous thrombosis and/or pulmonary embolus. HIGH RISK: Target INR is 2.5-3.5 for patients with mechanical heart valves. Performing Organization Address City/[facility] Cent[facility]ode Phone Number [facility] [address] [place] [address] [facility] * XR abdomen / KUB 1 view (01/19/2019 11:26 PM CDT) Specimen Narrative Performed At FINAL REPORT [email or web address] ONE VIEW ABDOMEN HISTORY: Abdominal distention COMPARISON: CT abdomen of 11/08/2018 FINDINGS: 2 supine AP images of the abdomen and pelvis were obtained. There is gas and a moderate volume of fecal material in nondilated right colon. There is gas and a small amount of fecal material in nondilated left colon. No dilated loops of large or small intestine are identified. There are postoperative changes in the thoracolumbar spine. Posterior thoracolumbar fusion hardware extends from T9 through S1. There are bilateral iliac bone screws as well. The imaged lung bases appear to be free of consolidation. Several calcified phleboliths are present in the pelvis. Signed: Daniel Hernandez MD Report Verified Date/Time:01/19/2019 23:32:20 Reading Location: [facility] C013 Consult Reading Room Procedure Note Interface, External Ris In - 01/19/2019 11:34 PM CDT FINAL REPORT ONE VIEW ABDOMEN HISTORY: Abdominal distention COMPARISON: CT abdomen of 11/08/2018 FINDINGS: 2 supine AP images of the abdomen and pelvis were obtained. There is gas and a moderate volume of fecal material in nondilated right colon. There is gas and a small amount of fecal material in nondilated left colon. No dilated loops of large or small intestine are identified. There are postoperative changes in the thoracolumbar spine. Posterior thoracolumbar fusion hardware extends from T9 through S1. There are bilateral iliac bone screws as well. The imaged lung bases appear to be free of consolidation. Several calcified phleboliths are present in the pelvis. Signed: Daniel Hernandez MD Report Verified Date/Time: 01/19/2019 23:32:20 Reading Location: [facility] C0[facility] Consult Reading Room Performing Organization Address City/State/Zipcode Phone Number [facility] * CRITICAL CARE (01/19/2019 5:46 PM CDT) Narrative Performed At Byron Gray MD 01/19/20196:58 PM Critical Care Performed by: Byron Gray MD Authorized by: Byron Gray MD Total critical care time: 40 minutes Critical care time was exclusive of separately billable procedures and treating other patients and teaching time. Critical care was necessary to treat or prevent imminent or life-threatening deterioration of the following conditions: MATHEMATICS TECHNICIAN failure or compromise. Critical care was time spent personally by me on the following activities: development of treatment plan with patient or surrogate, discussions with consultants, discussions with primary provider, interpretation of cardiac output measurements, evaluation of patient's response to treatment, examination of patient, obtaining history from patient or surrogate, ordering and performing treatments and interventions, ordering and review of laboratory studies, ordering and review of radiographic studies, pulse oximetry, re-evaluation of patient's condition and review of old charts. * CT brain without IV contrast (01/19/2019 5:02 PM CDT) Only the most recent of 4 results within the time period is included. Specimen Narrative Performed At FINAL REPORT [facility] CT, BRAIN, WITHOUT CONTRAST INDICATION: headache weakness both legs TECHNIQUE: Noncontrast axial imaging was obtained from the vertex to the skull base. Axial images were reconstructed using a bone algorithm. DOSE REDUCTION: Dose modulation, iterative reconstruction, and/or weight-based adjustment of the mA/kV was utilized to reduce the radiation dose to as low as reasonably achievable. COMPARISON: January 07, 2019 FINDINGS: Cerebral parenchyma: Diffuse parenchymal volume loss. Appearance of the white matter suggests chronic microvascular disease. Midline structures: Normally positioned. Cerebellum and brainstem: Commensurate volume loss. Ventricles: Normal volume. Extra-axial spaces: Unremarkable. Calvarium and skull base: Intact. Paranasal sinuses and mastoid air cells: Visible chambers are clear. Orbital contents: Included portions unremarkable. Additional findings: None. IMPRESSION: Chronic involutional changes without acute intracranial abnormality. If there is persistent clinical concern for intracranial pathology, MR examination is recommended for further characterization. Signed: JR Maciel Robert MD Report Verified Date/Time:01/19/2019 16:59:57 Reading Location: [facility] Radiology Reading Room Procedure Note Interface, External Ris In - 01/19/2019 5:[address] PM [address] FINAL REPORT CT, BRAIN, WITHOUT CONTRAST INDICATION: headache weakness both legs TECHNIQUE: Noncontrast axial imaging was obtained from the vertex to the skull base. Axial images were reconstructed using a bone algorithm. DOSE REDUCTION: Dose modulation, iterative reconstruction, and/or weight-based adjustment of the mA/kV was utilized to reduce the radiation dose to as low as reasonably achievable. COMPARISON: January 07, 2019 FINDINGS: Cerebral parenchyma: Diffuse parenchymal volume loss. Appearance of the white matter suggests chronic microvascular disease. Midline structures: Normally positioned. Cerebellum and brainstem: Commensurate volume loss. Ventricles: Normal volume. Extra-axial spaces: Unremarkable. Calvarium and skull base: Intact. Paranasal sinuses and mastoid air cells: Visible chambers are clear. Orbital contents: Included portions unremarkable. Additional findings: None. IMPRESSION: Chronic involutional changes without acute intracranial abnormality. If there is persistent clinical concern for intracranial pathology, MR examination is recommended for further characterization. Signed: JR Maciel Robert MD Report Verified Date/Time: 01/19/2019 16:59:57 Reading Location: [facility] Radiology Reading Room Performing Organization Address City/State/Zipcode Phone Number [facility] * CT spine lumbar without IV contrast (01/19/2019 5:02 PM CDT) Only the most recent of 4 results within the time period is included. Specimen Narrative Performed At FINAL REPORT [facility] CT, SPINE, LUMBAR, WO CONTRAST INDICATION: trauma weakness both legs COMPARISON: January 08, 2019 TECHNIQUE: Contiguous noncontrast axial images of the lumbar spine are obtained. Computer reformatted coronal and sagittal images are also provided. Axial images are available in both bone and soft tissue algorithm. DOSE REDUCTION: Dose modulation, iterative reconstruction, and/or weight-based adjustment of the mA/kV was utilized to reduce the radiation dose to as low as reasonably achievable. FINDINGS: The examination is limited by streak artifact arising from multilevel posterior stabilization hardware extending from T8 through the sacroiliac joints. Surgical construct is intact. No evidence for loosening. Multilevel bone graft material again noted with multilevel laminectomy changes beginning at the T11 level and extending to L5. Inflammatory changes and endplate erosions is again noted at the T8 level with worsening height loss and increasing paraspinal inflammatory changes. There is no discernible retropulsion. No additional inflammatory changes are noted in the remaining lumbar levels. Alignment is grossly unchanged. Erosive changes at L1-2 are chronic appearing and stable compared to the prior examination. Anterolisthesis of L4 on L5 is also unchanged. IMPRESSION: Continued worsening of inflammatory changes and height loss focused at the inferior endplate of T8. Appearance is progressively worse over the prior two examinations including December 14, 2018 and January 08, 2019, compatible with continued osteomyelitis/discitis. No identifiable retropulsion is evident; imaging finding should be correlated with localizing neurologic signs. Signed: JR Maciel Robert MD Report Verified Date/Time:01/19/2019 17:09:11 Reading Location: [facility] Radiology Reading Room Procedure Note Interface, External Ris In - 01/19/2019 5:11 PM CDT FINAL REPORT CT, SPINE, LUMBAR, WO CONTRAST INDICATION: trauma weakness both legs COMPARISON: January 08, 2019 TECHNIQUE: Contiguous noncontrast axial images of the lumbar spine are obtained. Computer reformatted coronal and sagittal images are also provided. Axial images are available in both bone and soft tissue algorithm. DOSE REDUCTION: Dose modulation, iterative reconstruction, and/or weight-based adjustment of the mA/kV was utilized to reduce the radiation dose to as low as reasonably achievable. FINDINGS: The examination is limited by streak artifact arising from multilevel posterior stabilization hardware extending from T8 through the sacroiliac joints. Surgical construct is intact. No evidence for loosening. Multilevel bone graft material again noted with multilevel laminectomy changes beginning at the T11 level and extending to L5. Inflammatory changes and endplate erosions is again noted at the T8 level with worsening height loss and increasing paraspinal inflammatory changes. There is no discernible retropulsion. No additional inflammatory changes are noted in the remaining lumbar levels. Alignment is grossly unchanged. Erosive changes at L1-2 are chronic appearing and stable compared to the prior examination. Anterolisthesis of L4 on L5 is also unchanged. IMPRESSION: Continued worsening of inflammatory changes and height loss focused at the inferior endplate of T8. Appearance is progressively worse over the prior two examinations including December 14, 2018 and January 08, 2019, compatible with continued osteomyelitis/discitis. No identifiable retropulsion is evident; imaging finding should be correlated with localizing neurologic signs. Signed: JR Maciel Robert MD Report Verified Date/Time: 01/19/2019 17:09:11 Reading Location: [facility] Radiology Reading Room Performing Organization Address City/State/Zipcode Phone Number [facility] * EKG-SCANNED (01/19/2019 8:00 AM CDT) Only the most recent of 2 results within the time period is included. Narrative Performed At * CBC (Hemogram only) (01/15/2019 4:21 AM CDT) Only the most recent of 8 results within the time period is included. WBC 4.7 3.5 - 10.5 K/L [facility] RBC 3.37 (L) 3.93 - 5.22 M/L [facility] Hemoglobin 8.6 (L) 11.2 - 15.7 GM/DL [facility] Hematocrit 28.0 (L) 34.1 - 44.9 % [facility] MCV 83.1 79.4 - 94.8 fL [facility] MCH 25.5 (L) 25.6 - 32.2 pg [facility] MCHC 30.7 (L) 32.2 - 35.5 GM/DL [facility] RDW 20.2 (H) 11.7 - 14.4 % [facility] Platelets 268 150 - 450 K/CU MM [facility] MPV 9.5 9.4 - 12.3 fL [facility] nRBC 0 0 - 0 /100 WBC [facility] Specimen Blood Performing Organization Address City/State/Zipcode Phone Number [facility] [address] [place] [address] [facility] * CT spine thoracic without IV contrast (01/08/2019 11:17 AM CDT) Only the most recent of 2 results within the time period is included. Specimen Narrative Performed At FINAL REPORT [facility] CT, SPINE, THORACIC, WO CONTRAST, CT, SPINE, LUMBAR, WO CONTRAST INDICATION: Follow up thoracic spine fusion COMPARISON: December 14, 2018 TECHNIQUE: Contiguous noncontrast axial images of the thoracic spine are obtained. Computer reformatted coronal and sagittal images are also provided. Axial images are available in both bone and soft tissue algorithm. DOSE REDUCTION: Dose modulation, iterative reconstruction, and/or weight-based adjustment of the mA/kV was utilized to reduce the radiation dose to as low as reasonably achievable. FINDINGS: Limited by streak artifact arising from stabilization hardware. Redemonstration of surgical changes including posterior stabilization rods and transpedicular screws extending from T9 through S2. Interbody spacer placement is present at L5-S1. Vertebroplasty changes are again noted at T9-10. Bone graft reenforcement laminectomies beginning at and T11-12 and extending to L3. There is no hardware loosening or fracture. No abnormal translation has occurred over the interval. There is loss endplate distinction. At T8 level, increased since the prior examination and without involvement of the posterior elements. When compared to the immediate prior examination, there is continued worsening of paraspinal inflammation this level. Small bilateral pleural effusions are again noted. Within the lumbar spine, erosive changes at the L1-2 level are stable. There is unchanged grade 2 anterolisthesis of L4 on L5. Interbody spacer at L5-S1 is stable. Lumbar paraspinal soft tissue structures are unremarkable. IMPRESSION: Worsening height loss at the T8 vertebral body with continued increase in the paraspinal inflammatory changes compatible with osteomyelitis/discitis. Multilevel stabilization and surgical changes are stable without evidence for hardware failure, loosening or fracture. Acute findings are superimposed over diffuse osteopenia. Signed: JR Raheem, Kit SARAVIA Report Verified Date/Time:01/08/2019 11:27:57 Reading Location: [address] Neuro Reading Room Procedure Note Interface, External Ris In - 01/08/2019 11:30 AM CDT FINAL REPORT CT, SPINE, THORACIC, WO CONTRAST, CT, SPINE, LUMBAR, WO CONTRAST INDICATION: Follow up thoracic spine fusion COMPARISON: December 14, 2018 TECHNIQUE: Contiguous noncontrast axial images of the thoracic spine are obtained. Computer reformatted coronal and sagittal images are also provided. Axial images are available in both bone and soft tissue algorithm. DOSE REDUCTION: Dose modulation, iterative reconstruction, and/or weight-based adjustment of the mA/kV was utilized to reduce the radiation dose to as low as reasonably achievable. FINDINGS: Limited by streak artifact arising from stabilization hardware. Redemonstration of surgical changes including posterior stabilization rods and transpedicular screws extending from T9 through S2. Interbody spacer placement is present at L5-S1. Vertebroplasty changes are again noted at T9-10. Bone graft reenforcement laminectomies beginning at and T11-12 and extending to L3. There is no hardware loosening or fracture. No abnormal translation has occurred over the interval. There is loss endplate distinction. At T8 level, increased since the prior examination and without involvement of the posterior elements. When compared to the immediate prior examination, there is continued worsening of paraspinal inflammation this level. Small bilateral pleural effusions are again noted. Within the lumbar spine, erosive changes at the L1-2 level are stable. There is unchanged grade 2 anterolisthesis of L4 on L5. Interbody spacer at L5-S1 is stable. Lumbar paraspinal soft tissue structures are unremarkable. IMPRESSION: Worsening height loss at the T8 vertebral body with continued increase in the paraspinal inflammatory changes compatible with osteomyelitis/discitis. Multilevel stabilization and surgical changes are stable without evidence for hardware failure, loosening or fracture. Acute findings are superimposed over diffuse osteopenia. Signed: JR Raheem, Kit SARAVIA Report Verified Date/Time: 01/08/2019 11:27:57 Reading Location: [facility] [id number] Neuro Reading Room Performing Organization Address City/State/Zipcode Phone Number [facility] * Urinalysis w/Microscopic + Reflex to Culture (01/08/2019 10:35 AM CDT) Only the most recent of 3 results within the time period is included. Color, UA Dark Yellow [facility] Clarity, UA Hazy [facility] Specific [place], UA 1.024 1.001 - 1.035 [facility] pH, UA 5.5 5.0 - 8.0 [facility] Protein, UA 100 mg/dL (A) Negative [facility] Glucose, UA Negative Negative [facility] Ketones, UA Trace (A) Negative [facility] Bilirubin, UA Negative Negative [facility] Blood, UA Small (A) Negative [facility] Nitrite, UA Negative Negative [facility] Leukocytes, UA Large (A) Negative [facility] Urobilinogen, UA 0.2 0.2 - 1.0 mg/dL [facility] RBC, UA 4 /HPF [facility] WBC, UA 418 /HPF [facility] Bacteria, UA Few [facility] Mucus Few [facility] Hyaline Casts, UA 12 /LPF [facility] Granular Casts, UA 4 /LPF [facility] Yeast Rare [facility] Specimen Source [facility] Specimen Urine - Urine, Straight Catheter Performing Organization Address [facility] Phone Number [facility] [address] [place] [address] [facility] * Urine culture (01/08/2019 10:35 AM CDT) Only the most recent of 3 results within the time period is included. Result >100,000 col/mL Tirso [facility] albicans (A) [facility] Result >100,000 col/mL Vancomycin [facility] resistant Enterococcus species [facility] (A) Gram Stain Result <1+ White blood cells seen [facility] Gram Stain Result 3+ gram positive cocci in [facility] chains and pairs [facility] Specimen Urine - Urine, Straight Catheter Antibiotic Method Susceptibility Organism Ampicillin >=32: Resistant Vancomycin resistant Enterococcus species Linezolid 2: Susceptible Vancomycin resistant Enterococcus species Nitrofurantoin 265: Resistant Vancomycin resistant Enterococcus species Tetracycline >=16: Resistant Vancomycin resistant Enterococcus species Vancomycin >=32: Resistant Vancomycin resistant Enterococcus species Daptomycin 3: Susceptible Vancomycin resistant Enterococcus species Performing Organization Address City/[facility] Phone Number [facility] [address] [place] [address] [facility] * Procalcitonin (01/08/2019 3:49 AM CDT) Procalcitonin <0.05 <0.05 ng/mL [facility] Specimen Blood Narrative Performed At SEPSIS RISK (ng/mL) [facility] Low:0.05-0.50 [facility] Intermediate: 0.51-2.00 High: >=2.01 Performing Organization Address [facility] Phone Number [address] * C-Reactive Protein (01/08/2019 3:49 AM CDT) Only the most recent of 2 results within the time period is included. CRP 2.84 (H) 0.00 - 0.50 mg/dL [facility] Specimen Blood Performing Organization Address City/[facility] Phone Number [address] * Lactic acid, venous (01/08/2019 3:49 AM CDT) Lactate, Venous 0.6 0.5 - 2.2 mmol/L [facility] Specimen Blood Performing Organization Address [facility] Phone Number [address] * Ammonia (01/07/2019 12:41 PM CDT) Ammonia 24 18 - 72 mol/L [facility] Specimen Blood Performing Organization Address [facility] Phone Number [address] * Hepatic function panel (01/07/2019 12:41 PM CDT) Only the most recent of 3 results within the time period is included. Protein, Total 7.7 6.0 - 8.3 gm/dL [facility] Albumin 3.5 3.5 - 5.0 g/dL [facility] Total Bilirubin 0.6 0.2 - 1.2 mg/dL [facility] Bilirubin, Direct 0.3 0.1 - 0.5 mg/dL [facility] Alkaline Phosphatase 69 40 - 150 U/L [facility] AST 23 5 - 34 U/L [facility] ALT 8 6 - 55 U/L [facility] Specimen Blood Narrative Performed At Order for age greater than 18 with no history of head injury or liver disease [facility] patients of any age [facility] Performing Organization Address City/State/Zipcode Phone Number [facility] [address] [place] [address] [facility] * XR chest PA or AP 1 view in dept (01/07/2019 11:55 AM CDT) Specimen Narrative Performed At FINAL REPORT [facility] AP chest HISTORY: Agitation. Altered mental status. COMPARISON: 12/16/2017. IMPRESSION: Right chest port. Hypoinflation. Stable cardiac silhouette. Mild diffuse interstitial prominence similar to previous. No effusion or pneumothorax. Signed: Agnieszka Perez MD Report Verified Date/Time:01/07/2019 12:02:42 Reading Location: [address] Radiology Reading Room Procedure Note Interface, External Ris In - 01/07/2019 12:04 PM CDT FINAL REPORT AP chest HISTORY: Agitation. Altered mental status. COMPARISON: 12/16/2017. IMPRESSION: Right chest port. Hypoinflation. Stable cardiac silhouette. Mild diffuse interstitial prominence similar to previous. No effusion or pneumothorax. Signed: Agnieszka Perez MD Report Verified Date/Time: 01/07/2019 12:02:42 Reading Location: [address] Radiology Reading Room Performing Organization Address City/State/Zipcode Phone Number [facility] * CT Biopsy/Aspiration/Injection (12/22/2018 11:49 AM CDT) Only the most recent of 2 results within the time period is included. Specimen Narrative Performed At FINAL REPORT [facility] CT guided needle aspiration of the T8-T9 disc and adjacent paravertebral abscess History: T8/T9 discitis/osteomyelitis, phlegmon/abscess aspirate for gram stain and culture Comparison: CT from 12/14/2018 Modality: CT, CT fluoroscopy Anesthesia: 1% lidocaine local Approach: Left dorsal percutaneous Consent: Informed written consent was obtained from the patient. Sedation: Moderate sedation was administered.0.5 mg of Versed and 25 mcg of fentanyl IV was used for moderate sedation monitored under my direction. Total intraservice time of sedation was 15 minutes. The patient's vital signs were monitored throughout the procedure and recorded in the patient's medical record by the nurse. Technique: The patient was placed in a decubitus position in the CT scanner. A safe window to the left T8-T9 disc and adjacent paravertebral collection was localized using CT and CT fluoroscopy. This exam was performed according to our departmental dose optimization program which includes automated exposure control, adjustment of the mA and/or kV according to patient size and/or use of iterative reconstructive technique. After the usual sterile preparation and application of local anesthesia, using a left dorsal approach, a 10 cm 21-gauge Chiba needle was advanced into left T8-T9 disc and adjacent paravertebral collection using CT guidance. 2 cc of thick bloody fluid was aspirated and sent to microbiology for further analysis. Disposition: The patient tolerated the procedure well, without immediate complications. The patient left CT in stable condition. Impression: Technically successful CT guided needle aspiration of the T8-T9 disc and adjacent paravertebral abscess Signed: Micah Rebollar MD Report Verified Date/Time:12/22/2018 12:03:22 Reading Location: [facility] C0X [facility] Consult Reading Room Procedure Note Interface, External Ris In - 12/22/2018 12:05 PM CDT FINAL REPORT CT guided needle aspiration of the T8-T9 disc and adjacent paravertebral abscess History: T8/T9 discitis/osteomyelitis, phlegmon/abscess aspirate for gram stain and culture Comparison: CT from 12/14/2018 Modality: CT, CT fluoroscopy Anesthesia: 1% lidocaine local Approach: Left dorsal percutaneous Consent: Informed written consent was obtained from the patient. Sedation: Moderate sedation was administered. 0.5 mg of Versed and 25 mcg of fentanyl IV was used for moderate sedation monitored under my direction. Total intraservice time of sedation was 15 minutes. The patient's vital signs were monitored throughout the procedure and recorded in the patient's medical record by the nurse. Technique: The patient was placed in a decubitus position in the CT scanner. A safe window to the left T8-T9 disc and adjacent paravertebral collection was localized using CT and CT fluoroscopy. This exam was performed according to our departmental dose optimization program which includes automated exposure control, adjustment of the mA and/or kV according to patient size and/or use of iterative reconstructive technique. After the usual sterile preparation and application of local anesthesia, using a left dorsal approach, a 10 cm 21-gauge Chiba needle was advanced into left T8-T9 disc and adjacent paravertebral collection using CT guidance. 2 cc of thick bloody fluid was aspirated and sent to microbiology for further analysis. Disposition: The patient tolerated the procedure well, without immediate complications. The patient left CT in stable condition. Impression: Technically successful CT guided needle aspiration of the T8-T9 disc and adjacent paravertebral abscess Signed: Micah Rebollar MD Report Verified Date/Time: 12/22/2018 12:03:22 Reading Location: [address] Ortho Consult Reading Room Performing Organization Address City/[facility] Phone Number [facility] * AFB culture + smear (12/22/2018 11:12 AM CDT) Result No acid-fast bacilli isolated [facility] in 42 days [facility] AFB Smear No acid fast bacilli seen [facility] Specimen Body Fluid Performing Organization Address [facility] Phone Number [address] [address] [facility] * Anaerobic culture (12/22/2018 11:12 AM CDT) Result No anaerobes isolated [facility] Specimen Body Fluid Performing Organization Address [facility] Phone Number [address] [address] [facility] * Fungus culture + smear (12/22/2018 11:12 AM CDT) Result No fungus isolated in 28 days [facility] Fungus Smear No fungi seen [facility] Specimen Body Fluid Performing Organization Address [facility] Phone Number [facility] [address] [place] [address] [facility] * Body fluid culture + gram stain (12/22/2018 10:45 AM CDT) Only the most recent of 2 results within the time period is included. Result 1+ Proteus mirabilis (A) [facility] Gram Stain Result 2+ WBCs [facility] Gram Stain Result No organisms seen [facility] Specimen Body Fluid Antibiotic Method Susceptibility Organism Amikacin <=2: Susceptible Proteus mirabilis Ampicillin + Sulbactam <=2: Susceptible Proteus mirabilis Aztreonam <=1: Susceptible Proteus mirabilis Cefepime <=1: Susceptible Proteus mirabilis Cefoxitin 8: Susceptible Proteus mirabilis Ceftazidime <=1: Susceptible Proteus mirabilis Ceftriaxone <=1: Susceptible Proteus mirabilis Ertapenem <=0.5: Susceptible Proteus mirabilis Gentamicin <=1: Susceptible Proteus mirabilis Levofloxacin <=0.12: Susceptible Proteus mirabilis Meropenem 1: Susceptible Proteus mirabilis Piperacillin + Tazobactam <=4: Susceptible Proteus mirabilis Tetracycline >=16: Resistant Proteus mirabilis Tobramycin <=1: Susceptible Proteus mirabilis Trimethoprim + Sulfamethoxazole <=20: Susceptible Proteus mirabilis Performing Organization Address [facility] Phone Number [facility] [address] [place], [place] [phone] [facility] * XR Spine, Scoliosis Study (12/17/2018 7:58 AM CDT) Specimen Narrative Performed At FINAL REPORT [facility] Radiograph of the cervical, thoracic and lumbar spine Reason for exam: history of thoracolumbar fusion with back pain Comparison:No priors Discussion: There is mild levoscoliosis of the thoracolumbar spine, apex at approximately L1. There are multilevel degenerative changes. Anterolisthesis is noted at C2-C3, C3-C4, probably degenerative in etiology. Status post dorsal fusion from T9 to S1 by means of bilateral pedicle screws atT9, T10, T11, L1, L3, L4, L5, S1, as well as to additional screws traversing across the sacrum. There is a right-sided pedicle screw at T12. Lateral fusion hardware is also seen at T12-L3. Interbody spacer is present at L5-S1 there is anterolisthesis at L4-L5. No evidence of screw backout, or hardware fracture. No suspicious bony lesion identified. Compression deformity is noted at L2. Patient is status post kyphoplasty at T9 and T10. Signed: Cassius Guillen MD Report Verified Date/Time:12/17/2018 08:51:46 Reading Location: [facility] Radiology Reading Room Procedure Note Interface, External Ris In - 12/17/2018 8:53 AM CDT FINAL REPORT Radiograph of the cervical, thoracic and lumbar spine Reason for exam: history of thoracolumbar fusion with back pain Comparison: No priors Discussion: There is mild levoscoliosis of the thoracolumbar spine, apex at approximately L1. There are multilevel degenerative changes. Anterolisthesis is noted at C2-C3, C3-C4, probably degenerative in etiology. Status post dorsal fusion from T9 to S1 by means of bilateral pedicle screws at T9, T10, T11, L1, L3, L4, L5, S1, as well as to additional screws traversing across the sacrum. There is a right-sided pedicle screw at T12. Lateral fusion hardware is also seen at T12-L3. Interbody spacer is present at L5-S1 there is anterolisthesis at L4-L5. No evidence of screw backout, or hardware fracture. No suspicious bony lesion identified. Compression deformity is noted at L2. Patient is status post kyphoplasty at T9 and T10. Signed: Cassius Guillen MD Report Verified Date/Time: 12/17/2018 08:51:46 Reading Location: [facility] Radiology Reading Room Performing Organization Address City/State/Zipcode Phone Number [facility] * CT spine lumbar with IV contrast (12/14/2018 2:44 PM CDT) Specimen Narrative Performed At FINAL REPORT [employer] [facility] CT, SPINE, THORACIC, CONTRAST, CT, SPINE, LUMBAR, CONTRAST INDICATION: discitis/epidural abscess post spinal surgery COMPARISON: Exam two days prior, CT abdomen and pelvis May 2018 and October 2018 TECHNIQUE: Contiguous noncontrast axial images of the thoracic and lumbar spine are obtained. Computer reformatted coronal and sagittal images are also provided. Axial images are available in both bone and soft tissue algorithm. DOSE REDUCTION: Dose modulation, iterative reconstruction, and/or weight-based adjustment of the mA/kV was utilized to reduce the radiation dose to as low as reasonably achievable. FINDINGS: No interval change compared to exam obtained two days ago. Diffuse osteopenia. 12 rib-bearing thoracic type vertebra and five nonrib-bearing lumbar-type vertebral bodies are present. Laminectomy spanning T11-L3, and posterior instrumentation and fusion spanning T9-S2 are unchanged without evidence of hardware fracture or malalignment. Alignment is unchanged with scoliotic curvature of the thoracolumbar spine, apex levoscoliotic curvature at L1-L2 and apex dextroscoliotic curvature at T8-T9. Of note, this examination is nonweightbearing. Prior vertebroplasty versus kyphoplasty at T9-T10. Asymmetric endplate depressions are unchanged compared to prior exam. No high-grade spinal canal narrowing within the thoracic levels. Evaluation of the lumbar canal is limited due to streak artifact from hardware. Within these limitations, no high-grade canal narrowing at lumbar levels is demonstrated. Compared to CT Abdomen Pelvis November 08, 2018 and June 12, 2018, there is interval increased soft tissue surrounding the T8-T9 vertebral level and increased vertebral body height loss at T8 (sagittal bone algorithm thoracic spine imaged 51). Given history of bacteremia, findings are concerning for discitis/osteomyelitis. This is poorly evaluated due to streak artifact from hardware. Evaluation of the paraspinal soft tissues is similarly limited due to streak artifact. Within these limitations, small bilateral pleural effusions and adjacent subsegmental atelectasis. Hypoattenuating cysts within the kidneys. No perinephric stranding or hydronephrosis. Postsurgical scar within the posterior paraspinal soft tissues. No posterior paraspinal fluid collection is demonstrated. Mild fatty atrophy of the paraspinal musculature. No CT evidence of discitis/ IMPRESSION: Compared to CT Abdomen Pelvis November 08, 2018 and June 12, 2018, there is interval increased soft tissue surrounding the T8-T9 vertebral level and increased vertebral body height loss at T8. Given history of bacteremia, findings are concerning for discitis/osteomyelitis. This is poorly evaluated due to streak artifact from hardware. Findings discussed with Dr. Rebollar by Dr. Jordan 7:27 PM Signed: Lesley Jordan MD Report Verified Date/Time:12/14/2018 19:34:35 Reading Location: [facility] Radiology Reading Room Procedure Note Interface, External Ris In - 12/14/2018 7:36 PM CDT FINAL REPORT CT, SPINE, THORACIC, CONTRAST, CT, SPINE, LUMBAR, CONTRAST INDICATION: discitis/epidural abscess post spinal surgery COMPARISON: Exam two days prior, CT abdomen and pelvis May 2018 and October 2018 TECHNIQUE: Contiguous noncontrast axial images of the thoracic and lumbar spine are obtained. Computer reformatted coronal and sagittal images are also provided. Axial images are available in both bone and soft tissue algorithm. DOSE REDUCTION: Dose modulation, iterative reconstruction, and/or weight-based adjustment of the mA/kV was utilized to reduce the radiation dose to as low as reasonably achievable. FINDINGS: No interval change compared to exam obtained two days ago. Diffuse osteopenia. 12 rib-bearing thoracic type vertebra and five nonrib-bearing lumbar-type vertebral bodies are present. Laminectomy spanning T11-L3, and posterior instrumentation and fusion spanning T9-S2 are unchanged without evidence of hardware fracture or malalignment. Alignment is unchanged with scoliotic curvature of the thoracolumbar spine, apex levoscoliotic curvature at L1-L2 and apex dextroscoliotic curvature at T8-T9. Of note, this examination is nonweightbearing. Prior vertebroplasty versus kyphoplasty at T9-T10. Asymmetric endplate depressions are unchanged compared to prior exam. No high-grade spinal canal narrowing within the thoracic levels. Evaluation of the lumbar canal is limited due to streak artifact from hardware. Within these limitations, no high-grade canal narrowing at lumbar levels is demonstrated. Compared to CT Abdomen Pelvis November 08, 2018 and June 12, 2018, there is interval increased soft tissue surrounding the T8-T9 vertebral level and increased vertebral body height loss at T8 (sagittal bone algorithm thoracic spine imaged 51). Given history of bacteremia, findings are concerning for discitis/osteomyelitis. This is poorly evaluated due to streak artifact from hardware. Evaluation of the paraspinal soft tissues is similarly limited due to streak artifact. Within these limitations, small bilateral pleural effusions and adjacent subsegmental atelectasis. Hypoattenuating cysts within the kidneys. No perinephric stranding or hydronephrosis. Postsurgical scar within the posterior paraspinal soft tissues. No posterior paraspinal fluid collection is demonstrated. Mild fatty atrophy of the paraspinal musculature. No CT evidence of discitis/ IMPRESSION: Compared to CT Abdomen Pelvis November 08, 2018 and June 12, 2018, there is interval increased soft tissue surrounding the T8-T9 vertebral level and increased vertebral body height loss at T8. Given history of bacteremia, findings are concerning for discitis/osteomyelitis. This is poorly evaluated due to streak artifact from hardware. Findings discussed with Dr. Rebollar by Dr. Jordan 7:27 PM Signed: Lesley Jordan MD Report Verified Date/Time: 12/14/2018 19:34:35 Reading Location: [facility] Radiology Reading Room Performing Organization Address City/State/Zipcode Phone Number [email or web address] * CT spine thoracic with IV contrast (12/14/2018 2:44 PM CDT) Specimen Narrative Performed At FINAL REPORT [email or web address] CT, SPINE, THORACIC, CONTRAST, CT, SPINE, LUMBAR, CONTRAST INDICATION: discitis/epidural abscess post spinal surgery COMPARISON: Exam two days prior, CT abdomen and pelvis May 2018 and October 2018 TECHNIQUE: Contiguous noncontrast axial images of the thoracic and lumbar spine are obtained. Computer reformatted coronal and sagittal images are also provided. Axial images are available in both bone and soft tissue algorithm. DOSE REDUCTION: Dose modulation, iterative reconstruction, and/or weight-based adjustment of the mA/kV was utilized to reduce the radiation dose to as low as reasonably achievable. FINDINGS: No interval change compared to exam obtained two days ago. Diffuse osteopenia. 12 rib-bearing thoracic type vertebra and five nonrib-bearing lumbar-type vertebral bodies are present. Laminectomy spanning T11-L3, and posterior instrumentation and fusion spanning T9-S2 are unchanged without evidence of hardware fracture or malalignment. Alignment is unchanged with scoliotic curvature of the thoracolumbar spine, apex levoscoliotic curvature at L1-L2 and apex dextroscoliotic curvature at T8-T9. Of note, this examination is nonweightbearing. Prior vertebroplasty versus kyphoplasty at T9-T10. Asymmetric endplate depressions are unchanged compared to prior exam. No high-grade spinal canal narrowing within the thoracic levels. Evaluation of the lumbar canal is limited due to streak artifact from hardware. Within these limitations, no high-grade canal narrowing at lumbar levels is demonstrated. Compared to CT Abdomen Pelvis November 08, 2018 and June 12, 2018, there is interval increased soft tissue surrounding the T8-T9 vertebral level and increased vertebral body height loss at T8 (sagittal bone algorithm thoracic spine imaged 51). Given history of bacteremia, findings are concerning for discitis/osteomyelitis. This is poorly evaluated due to streak artifact from hardware. Evaluation of the paraspinal soft tissues is similarly limited due to streak artifact. Within these limitations, small bilateral pleural effusions and adjacent subsegmental atelectasis. Hypoattenuating cysts within the kidneys. No perinephric stranding or hydronephrosis. Postsurgical scar within the posterior paraspinal soft tissues. No posterior paraspinal fluid collection is demonstrated. Mild fatty atrophy of the paraspinal musculature. No CT evidence of discitis/ IMPRESSION: Compared to CT Abdomen Pelvis November 08, 2018 and June 12, 2018, there is interval increased soft tissue surrounding the T8-T9 vertebral level and increased vertebral body height loss at T8. Given history of bacteremia, findings are concerning for discitis/osteomyelitis. This is poorly evaluated due to streak artifact from hardware. Findings discussed with Dr. Rebollar by Dr. Jordan 7:27 PM Signed: Lesley Jordan MD Report Verified Date/Time:12/14/2018 19:34:35 Reading Location: [facility] Radiology Reading Room Procedure Note Interface, External Ris In - 12/14/2018 7:36 PM CDT FINAL REPORT CT, SPINE, THORACIC, CONTRAST, CT, SPINE, LUMBAR, CONTRAST INDICATION: discitis/epidural abscess post spinal surgery COMPARISON: Exam two days prior, CT abdomen and pelvis May 2018 and October 2018 TECHNIQUE: Contiguous noncontrast axial images of the thoracic and lumbar spine are obtained. Computer reformatted coronal and sagittal images are also provided. Axial images are available in both bone and soft tissue algorithm. DOSE REDUCTION: Dose modulation, iterative reconstruction, and/or weight-based adjustment of the mA/kV was utilized to reduce the radiation dose to as low as reasonably achievable. FINDINGS: No interval change compared to exam obtained two days ago. Diffuse osteopenia. 12 rib-bearing thoracic type vertebra and five nonrib-bearing lumbar-type vertebral bodies are present. Laminectomy spanning T11-L3, and posterior instrumentation and fusion spanning T9-S2 are unchanged without evidence of hardware fracture or malalignment. Alignment is unchanged with scoliotic curvature of the thoracolumbar spine, apex levoscoliotic curvature at L1-L2 and apex dextroscoliotic curvature at T8-T9. Of note, this examination is nonweightbearing. Prior vertebroplasty versus kyphoplasty at T9-T10. Asymmetric endplate depressions are unchanged compared to prior exam. No high-grade spinal canal narrowing within the thoracic levels. Evaluation of the lumbar canal is limited due to streak artifact from hardware. Within these limitations, no high-grade canal narrowing at lumbar levels is demonstrated. Compared to CT Abdomen Pelvis November 08, 2018 and June 12, 2018, there is interval increased soft tissue surrounding the T8-T9 vertebral level and increased vertebral body height loss at T8 (sagittal bone algorithm thoracic spine imaged 51). Given history of bacteremia, findings are concerning for discitis/osteomyelitis. This is poorly evaluated due to streak artifact from hardware. Evaluation of the paraspinal soft tissues is similarly limited due to streak artifact. Within these limitations, small bilateral pleural effusions and adjacent subsegmental atelectasis. Hypoattenuating cysts within the kidneys. No perinephric stranding or hydronephrosis. Postsurgical scar within the posterior paraspinal soft tissues. No posterior paraspinal fluid collection is demonstrated. Mild fatty atrophy of the paraspinal musculature. No CT evidence of discitis/ IMPRESSION: Compared to CT Abdomen Pelvis November 08, 2018 and June 12, 2018, there is interval increased soft tissue surrounding the T8-T9 vertebral level and increased vertebral body height loss at T8. Given history of bacteremia, findings are concerning for discitis/osteomyelitis. This is poorly evaluated due to streak artifact from hardware. Findings discussed with Dr. Rebollar by Dr. Jordan 7:27 PM Signed: Lesley Jordan MD Report Verified Date/Time: 12/14/2018 19:34:35 Reading Location: [facility] Reading Room Performing Organization Address City/[facility] Phone Number RIS * TSH/Free T4 If Indicated (12/13/2018 5:59 AM CDT) Only the most recent of 3 results within the time period is included. TSH 2.10 0.35 - 4.94 uIU/mL [facility] Specimen Blood Performing Organization Address [facility] Phone Number [address] * Influenza antigen A & B (Rapid) (12/12/2018 9:40 AM CDT) Rapid Influenza A Antigen Negative Negative, Inconclusive [facility] Rapid influenza B Antigen Negative Negative, Inconclusive [facility] Specimen Nasopharyngeal Performing Organization Address [facility] Phone Number [address] * POC-Lactic Acid, Venous (12/12/2018 9:17 AM CDT) POC-Lactic Acid, Venous 0.9Comment: [facility] 0[facility]9 - 1.7 mmol/L [address] Specimen Blood Performing Organization Address [facility] Phone Number [address] * NM white blood cell imaging spect (11/19/2018 2:07 PM INSTALLATION SERVICE REPRESENTATIVE) Specimen Narrative Performed At FINAL REPORT [facility]IS PROCEDURE: Indium-WBC SCAN CPT CODE:39092 INDICATION:Infected hardware of the back, fever, postoperative wound infection PROTOCOL:0.498 mCi ofIn-111 labeled autologous white blood cells was injected intravenously. Images were obtained 23 hours after tracer injection and included whole body and spot images. SPECT images were acquired of the lower thoracic and upper lumbar spine. FINDINGS:Tracer distribution is physiological. IMPRESSION: Normal indium-WBC scan. Signed: Mateo Kirkland MD Report Verified Date/Time:11/19/2018 14:52:41 Reading Location: [address] [place] [address] Reading Room Procedure Note Interface, External Ris In - 11/19/2018 2:54 PM INSTALLATION SERVICE REPRESENTATIVE FINAL REPORT PROCEDURE: Indium-WBC SCAN CPT CODE: 54006 INDICATION: Infected hardware of the back, fever, postoperative wound infection PROTOCOL: 0.498 mCi of In-111 labeled autologous white blood cells was injected intravenously. Images were obtained 23 hours after tracer injection and included whole body and spot images. SPECT images were acquired of the lower thoracic and upper lumbar spine. FINDINGS: Tracer distribution is physiological. IMPRESSION: Normal indium-WBC scan. Signed: Mateo Kirkland MD Report Verified Date/Time: 11/19/2018 14:52:41 Reading Location: [address] [place] [address] Reading Room Performing Organization Address City/State/Zipcode Phone Number [facility] * Valproic acid level, total (11/17/2018 6:44 AM INSTALLATION SERVICE REPRESENTATIVE) Valproic Acid, Total <2 (L) 50 - 100 ug/mL [facility] Specimen Blood Narrative Performed At Therapeutic range for some clinical conditions may be >100 ug/mL [facility] Performing Organization Address City/[facility]/Zipcode Phone Number [facility] [address] [place] [address] [facility] * Urinalysis Microscopic Only (11/09/2018 5:50 PM INSTALLATION SERVICE REPRESENTATIVE) RBC, UA 1 /HPF [facility] WBC, UA 1 /HPF [facility] Mucus Occasional [facility] Squam Epithel, UA <1 /HPF [facility] Hyaline Casts, UA 4 /LPF [facility] Specimen Urine - Urine, Straight Catheter Performing Organization Address [facility] Cent[facility] Phone Number [facility] [address] [place] [address] [facility] * Urinalysis with Microscopic If Indicated (11/09/2018 5:50 PM INSTALLATION SERVICE REPRESENTATIVE) Color, UA Yellow [facility] Clarity, UA Clear [facility] Specific [place], UA 1.028 1.001 - 1.035 [facility] pH, UA 6.0 5.0 - 8.0 [facility] Protein, UA 30 mg/dL (A) Negative [facility] Glucose, UA Negative Negative [facility] Ketones, UA 10 mg/dL (A) Negative [facility] Bilirubin, UA Negative Negative [facility] Blood, UA Trace (A) Negative [facility] Nitrite, UA Negative Negative [facility] Leukocytes, UA Negative Negative [facility] Urobilinogen, UA 2.0 (H) 0.2 - 1.0 mg/dL [facility] Specimen Source [facility] Specimen Urine - Urine, Straight Catheter Performing Organization Address [facility] Cent[facility]ode Phone Number [facility] [address] [place] [address] [facility] * Vitamin B12 and Folate (11/09/2018 4:08 AM INSTALLATION SERVICE REPRESENTATIVE) Vitamin B12 >2000 (H) 213 - 816 pg/mL [facility] Folate 10.5 >=7.0 ng/mL [facility] Specimen Blood Performing Organization Address City/[facility]/Zipcode Phone Number [address] [address] [facility] * Iron, TIBC, % sat. (without ferritin) (11/09/2018 4:08 AM INSTALLATION SERVICE REPRESENTATIVE) Iron 17.0 (L) 40.0 - 160.0 ug/dL [facility] TIBC 235 (L) 250 - 450 ug/dL [facility] Iron % Saturation 7 (L) 20 - 55 % [facility] Specimen Blood Performing Organization Address City/State/[place] [address] [phone] [place] [address] * Ferritin (11/09/2018 4:08 AM INSTALLATION SERVICE REPRESENTATIVE) Ferritin 250 5 - 275 ng/mL [facility] Specimen Blood Performing Organization Address City/[facility]/[place] [address] [phone] * Blood Culture Panel([employer]) (11/08/2018 8:39 PM INSTALLATION SERVICE REPRESENTATIVE) Only the most recent of 2 results within the time period is included. LISTERIA MONOCYTOGENES Not detected Not detected [facility] STAPHYLOCOCCUS Not detected Not detected [facility] STAPHYLOCOCCUS AUREUS Not detected Not detected [facility] Streptococcus Not detected Not detected [facility] STREPTOCOCCUS AGALACTIAE Not detected Not detected [facility] STREPTOCOCCUS PNEUMONIAE Not detected Not detected [facility] Streptococcus pyogenes Not detected Not detected [facility] ACINETOBACTER BAUMANNII Not detected Not detected [facility] HAEMOPHILUS INFLUENZAE Not detected Not detected [facility] NEISSERIA MENINGITIDIS Not detected Not detected [facility] ENTEROBACTERIACEAE Detected (A) Not detected [facility] ENTEROBACTER CLOACOE Not detected Not detected [facility] [place] KLEBSIELLA OXYTOCA Not detected Not detected [facility] KLEBSIELLA PNEUMONIAE Not detected Not detected [facility] PROTEUS Detected (A) Not detected [facility] Comment: [facility] First line therapy: Cefepime or Meropenem This test does not evaluate for ESBL Reference Range: Not Detected SERRATIA MARCESCENS Not detected Not detected [facility] TIRSO ALBICANS Not detected Not detected [facility] TIRSO GLABRATA Not detected Not detected [facility] TIRSO KRUSEI Not detected Not detected [facility] TIRSO PARAPSILOSIS Not detected Not detected [facility] TIRSO TROPICALIS Not detected Not detected [facility] ESCHERICHIA COLI Not detected Not detected [facility] METHICILLIN-RESISTANCE Not detected [facility] VANCOMYCIN-RESISTANCE Not detected [facility] CARBAPENEM-RESISTANCE Not detected Not detected [facility] ENTEROCOCCUS Not detected Not detected [facility] PSEUDOMONAS AERUGINOSA Not detected Not detected [facility] Specimen Blood Narrative Performed At Other bacteria and resistance markers not targeted by this PCR panel cannot be [facility] excluded; therefore clinical correlation and follow up of serology, culture [facility] results, and other molecular studies is required. The results are not intended to be used as the sole means for clinical diagnosis or patient management decisions. This sample was tested at the [facility] Molecular Diagnostics Laboratory using the Active Endpoints Blood Culture ID Panel. It is FDA cleared and has been verified and approved by the [facility] for clinical use. This laboratory is CLIA-certified and [employer] (CAP)-accredited to perform high complexity testing. Performing Organization Address City/State/Zipcode Phone Number [facility] [address] [place] [address] [facility] * CT abdomen/pelvis without iv contrast (11/08/2018 8:18 PM INSTALLATION SERVICE REPRESENTATIVE) Specimen Narrative Performed At FINAL REPORT [employer] [facility] EXAM: CT of the abdomen and pelvis, without contrast CLINICAL HISTORY: Back pain. TECHNIQUE: CT of the abdomen and pelvis was performed without the intravenous administration of contrast.This exam was performed according to our departmental dose optimization program which includes automated exposure control, adjustment of the mA and/or kV according to patient's size and/or use of iterative reconstructive technique. COMPARISON:CT chest, abdomen and pelvis 06/12/[address] 08/07/2018. FINDINGS: Please note study is limited due to lack of intravenous contrast. LOWER CHEST: Mild bibasilar linear atelectasis/scarring. Calcified right lower lobe granuloma. Atherosclerotic calcification of the aorta. LIVER: Calcified granulomata. BILE DUCTS: Within normal limits. GALL BLADDER: Within normal limits. PANCREAS: Parenchymal atrophy. SPLEEN: Splenomegaly. ADRENALS: Within normal limits. KIDNEYS/URETERS: Within normal limits. URINARY BLADDER: Within normal limits. REPRODUCTIVE ORGANS: Status post hysterectomy. No adnexal masses. BOWEL/MESENTERY: Small hiatal hernia. No bowel obstruction or abnormal wall thickening. Normal appendix. PERITONEUM/RETROPERITONEUM: No free air, free fluid or fluid collection. VESSELS: Atherosclerotic calcifications of the aorta and branches. No abdominal aortic aneurysm. LYMPH NODES: No abdominal or pelvic lymphadenopathy. BONES AND SOFT TISSUES:: Status post posterior spinal fusion T9-S2, T12-L5 laminectomies, T9 and T10 vertebroplasty and L5/S1 discectomy. Grade I anterolisthesis at L4/L5, unchanged. Mild lumbar levoscoliosis. Irregularity, sclerosis and ankylosis involving the L1/L2 disc space with loss of vertebral body heights, similar to CT lumbar spine 08/07/2018. Fatty stranding in the T8/T9 paravertebral soft tissues may be infectious, inflammatory or reactive.Tiny fat-containing umbilical hernia. IMPRESSION: No acute findings within the abdomen or pelvis. Extensive postsurgical and chronic changes in the thoracic and lumbar spine as described. Fatty stranding in the T8/T9 paravertebral soft tissues may be infectious, inflammatory or reactive due to an underlying occult fracture.Evaluation of the spinal canal is limited on this modality.A contrast-enhanced MRI would be helpful for further evaluation. . Signed: Lele Aviles MD Report Verified Date/Time:11/08/2018 20:39:59 Reading Location: [facility] B1 C013Y CT Body Reading Room Procedure Note Interface, External Ris In - 11/08/2018 8:42 PM INSTALLATION SERVICE REPRESENTATIVE FINAL REPORT EXAM: CT of the abdomen and pelvis, without contrast CLINICAL HISTORY: Back pain. TECHNIQUE: CT of the abdomen and pelvis was performed without the intravenous administration of contrast. This exam was performed according to our departmental dose optimization program which includes automated exposure control, adjustment of the mA and/or kV according to patient's size and/or use of iterative reconstructive technique. COMPARISON: CT chest, abdomen and pelvis 06/12/[address] 08/07/2018. FINDINGS: Please note study is limited due to lack of intravenous contrast. LOWER CHEST: Mild bibasilar linear atelectasis/scarring. Calcified right lower lobe granuloma. Atherosclerotic calcification of the aorta. LIVER: Calcified granulomata. BILE DUCTS: Within normal limits. GALL BLADDER: Within normal limits. PANCREAS: Parenchymal atrophy. SPLEEN: Splenomegaly. ADRENALS: Within normal limits. KIDNEYS/URETERS: Within normal limits. URINARY BLADDER: Within normal limits. REPRODUCTIVE ORGANS: Status post hysterectomy. No adnexal masses. BOWEL/MESENTERY: Small hiatal hernia. No bowel obstruction or abnormal wall thickening. Normal appendix. PERITONEUM/RETROPERITONEUM: No free air, free fluid or fluid collection. VESSELS: Atherosclerotic calcifications of the aorta and branches. No abdominal aortic aneurysm. LYMPH NODES: No abdominal or pelvic lymphadenopathy. BONES AND SOFT TISSUES: : Status post posterior spinal fusion T9-S2, T12-L5 laminectomies, T9 and T10 vertebroplasty and L5/S1 discectomy. Grade I anterolisthesis at L4/L5, unchanged. Mild lumbar levoscoliosis. Irregularity, sclerosis and ankylosis involving the L1/L2 disc space with loss of vertebral body heights, similar to CT lumbar spine 08/07/2018. Fatty stranding in the T8/T9 paravertebral soft tissues may be infectious, inflammatory or reactive. Tiny fat-containing umbilical hernia. IMPRESSION: No acute findings within the abdomen or pelvis. Extensive postsurgical and chronic changes in the thoracic and lumbar spine as described. Fatty stranding in the T8/T9 paravertebral soft tissues may be infectious, inflammatory or reactive due to an underlying occult fracture. Evaluation of the spinal canal is limited on this modality. A contrast-enhanced MRI would be helpful for further evaluation. . Signed: Lele Aviles MD Report Verified Date/Time: 11/08/2018 20:39:59 Reading Location: [facility] B1 C013Y CT Body Reading Room Performing Organization Address City/State/Zipcode Phone Number [facility] * ECG/EKG Interpretation (08/05/2018 9:35 PM INSTALLATION SERVICE REPRESENTATIVE) Narrative Performed At Lester Sandoval MD 08/05/2018 10:42 PM ECG/EKG Interpretation Date/Time: 08/05/2018 10:42 PM Performed by: Lester Sandoval MD Authorized by: Lester Sandoval MD The ECG was interpreted by ED physician. This ECG was not compared with previous ECG(s).The ECG is interpreted as sinus rhythm. Rate is normal rate. [place] is normal. Clinical Impression: non-specific ECGECG reviewed and does not meet STEMI criteria. Patient tolerance: Patient tolerated the procedure well with no immediate complications after 06/23/2018 Insurance Payer Benefit Subscriber ID Type Phone Address Plan / Group MEDICARE MEDICARE A xxxxxxxxxxx Medicare B MCR SUPPLEMENT/INDIVIDUAL AETNA xxxxxxxxxx SENIOR SUPPLEMENT [place] Advance Directives For more information, please contact: [facility] [address] [place] [address] Date Inactivated Comments Code Status Date Activated 01/30/2019 7:41 PM Full Code 01/20/2019 7:16 PM This code status was determined by: Patient 01/20/2019 7:16 PM Full Code 01/20/2019 4:45 AM This code status was determined by: Patient 12/25/2018 6:21 PM Full Code 12/12/2018 5:28 PM This code status was determined by: Patient 11/20/2018 6:32 PM Full Code 11/08/2018 8:26 PM This code status was determined by: Patient 11/08/2018 5:17 PM Full Code 08/06/2018 12:05 AM This code status was determined by: Patient
[2019-06-24] MEDS ORDERED: FENOFIBRATE145 MG PO (21:39)
[2019-06-24] MEDS ORDERED: ASPIR 8181 MG PO (21:40)
[2019-06-24] MEDS ORDERED: ATORVASTATIN CA20 MG PO (21:40)
[2019-06-24] MEDS ORDERED: DOCUSATE SODIU250 MG PO (21:41)
[2019-06-24] MEDS ORDERED: METHOCARBAMOL750 MG PO (21:41)
[2019-06-24] MEDS ORDERED: OXYBUTYNIN CHLOR5 MG PO (21:42)
[2019-06-24] MEDS ORDERED: SYNTHROID100 MCG PO (21:42)
--- OUTSIDE RECORDS SUMMARY | 2019-06-24 21:42 | XMS REPORT | Summary of Care ---
Author Author [facility] Organization [facility] Address Unknown Phone Unavailable Care Team Providers Care Fruit Thinner Name Role Phone Javy Gonzalez PCP Reason for Referral * Radiology Services (Routine) Referred By Contact Referred To Contact Status Reason Specialty Diagnoses / Procedures Miriam Fine NP [address] [address] [place], Radiology [address] [place] [address] Pending Radiology Diagnoses S/P spinal fusion Mid back pain P rocedures XR THORACIC SPINE (COMPLETE) * (Routine) Referred By Contact Referred To Contact Status Reason Specialty Diagnoses / Procedures Emilio Smith MD [address] [facility] [address] [place] [address] Pending Consult, Test, and Pain Management Diagnoses Treat S/P spinal fusion Mid back pain Reason for Visit * Reason Comments Follow Up Encounter Details Care Team Description Date Type Department Emilio Smith MD [address] [place] [address] [phone] Follow Up 04/26/2019 Office Visit [facility] Neurosurgery [address], [address] [place] [address] Allergies Comments Active Allergy Reactions Severity Noted Date Iodine Rash Medium 05/02/2010 Levaquin Rash High 09/08/2013 documented as of this encounter (statuses as of 05/01/2019) Medications End Date Status Medication Sig Dispensed Refills Start Date Active fenofibrate (TRICOR) 145 Take 145 mg 0 MG tablet by mouth daily. Active duloxetine (CYMBALTA) 60 Take 2 Caps 180 Cap 0 MG capsuleIndications: by mouth 6 Adjustment disorder with daily. mixed anxiety and depressed mood Active levothyroxine (SYNTHROID) Take 100 mcg 0 100 MCG tablet by mouth 8 daily. Active rosuvastatin (CRESTOR) 10 Take 10 mg by 0 MG tablet mouth daily. 8 Active pregabalin (LYRICA) 200 Lyrica 200 mg 0 MG capsule capsule Active hydrocodone-acetaminophen 0 (NORCO) 10-325 MG per 8 tablet 04/27/2019 Discontinued Calcium-Vitamin D (OSCAL Take 1 Tab by 0 500/200 D-3 PO) mouth daily. 04/27/2019 Discontinued valsartan (DIOVAN) 160 MG TK 1 T PO D 3 tablet 7 04/27/2019 Discontinued LYRICA 200 MG capsule Take 200 mg 0 by mouth 3 8 times daily. 04/27/2019 Discontinued Mirabegron ER (MYRBETRIQ) Take 1 tablet 0 50 MG TB24 every day by oral route. 04/27/2019 Discontinued levothyroxine (SYNTHROID) levothyroxine 0 100 MCG tablet 100 mcg tablet 04/27/2019 Discontinued rosuvastatin (CRESTOR) 10 rosuvastatin 0 MG tablet 10 mg tablet 04/27/2019 Discontinued carisoprodol (SOMA) 350 0 MG tablet 8 documented as of this encounter (statuses as of 05/01/2019) Active Problems Problem Noted Date Depression 05/02/2015 documented as of this encounter (statuses as of 05/01/2019) Immunizations Name Administration Dates Next Due Pneumococcal 07/09/2016 Polysaccharide documented as of this encounter Social History Date Tobacco Use Types Packs/Day Years Used Never Smoker Smokeless Tobacco: Never Used Drinks/Week oz/Week Comments Alcohol Use No Sex Assigned at Date Recorded Not on file Industry Job Start Date Occupation Not on file Not on file Not on file Travel End Travel History Travel Start No recent travel history available. documented as of this encounter Last Filed Vital Signs Reading Time Taken Comments Vital Sign 118/70 04/26/2019 2:21 PM CDT Blood Pressure 92 04/26/2019 2:21 PM CDT Pulse - - Temperature 18 04/26/2019 2:21 PM CDT Respiratory Rate - - Oxygen Saturation - - Inhaled Oxygen Concentration 76.7 kg (169 lb) 04/26/2019 2:21 PM CDT Weight 157.5 cm (5' 2") 04/26/2019 2:21 PM CDT Height 30.91 04/26/2019 2:21 PM CDT Body Mass Index documented in this encounter Progress Notes * Emilio Smith MD - 04/26/2019 1:45 PM CDT NAME OF PROCEDURE: 1. T7-T10 laminectomies with decompression of spinal cord 2. Extension of prior T9-S2 posterior segmental instrumetation with T3 to T7segm ental pedicle screw fixation with Depuy Synthes Viper Prime pedicle screw and ro d system. 3. Posterolateral arthrodesis, with allograft, T3 to T10 4. Spinal neuronavigation 5. Usage of fluoroscopy. 6. Usage of intraoperative MEP, SSEP neuromonitoring Reason for visit: Post op visit. I had the pleasure of seeing Ms. Cuevas at the neurosurgery clinic. The patie nt is a 73 y.o. female who underwent the above procedure on 01/20/[address] Isabelle delatorre for proximal Junctional Kyphosis T8-T9, adult degenerative kyphoscoliosis, t horacic compression fracture T8 secondary to osteomyelitis, spinal cord compress ion, bilateral lower extremity paraparesis. Dr. Callahan assisted with complex closure. She has a history of prior instrumented fusion for deformity correction T9-S2 . Pt is doing fair. She continues to have pain between her shoulder blades. She i s unable to stand well. Her legs give out when she stands. She has fallen a few times. She was discharged from SNF about 2 weeks ago. She has completed her IV a ntibiotics. She is currently receiving home PT and nursing twice a week. She joelle es [place] for pain. She has weaned off Morphine. She has also been using lidocain e and biofreeze. Patient returns for follow up to discuss their progress. CURRENT MEDICATIONS: Current Outpatient Medications Medication Sig Dispense Refill Calcium-Vitamin D (OSCAL 500/200 D-3 PO) Take 1 Tab by mouth daily. carisoprodol (SOMA) 350 MG tablet duloxetine (CYMBALTA) 60 MG capsule Take 2 Caps by mouth daily. (Patient joelle ing differently: Take 60 mg by mouth daily.) 180 Cap 0 fenofibrate (TRICOR) 145 MG tablet Take 145 mg by mouth daily. hydrocodone-acetaminophen (NORCO) 10-325 MG per tablet levothyroxine (SYNTHROID) 100 MCG tablet Take 100 mcg by mouth daily. levothyroxine (SYNTHROID) 100 MCG tablet levothyroxine 100 mcg tablet LYRICA 200 MG capsule Take 200 mg by mouth 3 times daily. Mirabegron ER (MYRBETRIQ) 50 MG TB24 Take 1 tablet every day by oral route. pregabalin (LYRICA) 200 MG capsule Lyrica 200 mg capsule rosuvastatin (CRESTOR) 10 MG tablet Take 10 mg by mouth daily. rosuvastatin (CRESTOR) 10 MG tablet rosuvastatin 10 mg tablet valsartan (DIOVAN) 160 MG tablet TK 1 T PO D 3 No current facility-administered medications for this visit. REVIEW OF SYSTEMS: General ROS: negative for - chills, hot flashes, malaise or night sweats Respiratory ROS: no cough, shortness of breath, or wheezing Cardiovascular ROS: no chest pain or dyspnea on exertion Musculoskeletal ROS: negative for - joint stiffness, joint swelling or muscular weakness Neurological ROS: negative for - bowel and bladder control changes, confusion, s eizures or visual changes PHYSICAL EXAM: Vitals: 04/26/19 1421 BP: 118/70 Pulse: 92 Resp: 18 Weight: 169 lb (76.7 kg) Height: 5' 2" (1.575 m) Patient is oriented to person, place and time. CN 2-12 are grossly intact bilaterally Motor exam: UE D B T WF WE IM Rt 5/5 5/5 5/5 5/5 5/5 5/5 Lt 5/5 5/5 5/5 5/5 5/5 5/5 LE: IP KE KF DF PF EHL Rt 4/5 4-/5 4-/5 5/5 5/5 5/5 Lt 4/5 4-/5 4-/5 5/5 5/5 5/5 Sensory exam : intact to light touch DTR: 2+ throughout Assistive device: wheelchair Incision: Surgical incision has healed well without drainage, erythema, or yoko ma. Lumbar X-rays ([facility]) dated 04/26/19- Visualized portion of the surgical hard gupta is intact and in good alignment with no evidence of loosening. DIAGNOSIS: Encounter Diagnosis and Orders ICD-10-CM 1. S/P spinal fusion Z98.1 ASSESSMENT/PLAN: Ms. Mckenzie Cuevas is a pleasant 73 y.o. female, about 3 months post op, who underwent the above procedure on 01/20/[address] Lazar for proximal Junct ional Kyphosis T8-T9, adult degenerative kyphoscoliosis, thoracic compression fr acture T8 secondary to osteomyelitis, spinal cord compression, bilateral lower e xtremity paraparesis. Patient is doing well overall. X-rays reveal the visualize d portion of the surgical hardware is intact and in good alignment. Her lower ex tremity strength continues to improve. She is referred to [facility] pain manage ment for pain control. I will see Mckenzie Cuevas for follow up in three months. We will obtain separate Thoracic X-rays at her next visit. Emilio Smith MD Last [place] Department of Neurosurgery [facility] documented in this encounter Plan of Treatment Care Team Description Date Type Specialty Emilio Smith MD [address] [address] [phone] 07/26/2019 Office Visit Neurosurgery Order Schedule Name Type Priority Associated Diagnoses Expected: 07/28/2019 (Approximate), Expires: 11/27/2019 XR THORACIC SPINE Imaging Routine S/P spinal fusion (COMPLETE) Mid back pain Order Schedule Name Type Priority Associated Diagnoses Ordered: 04/26/2019 AMB REF TO PAIN Outpatient Routine S/P spinal fusion MANAGEMENT EXTERNAL Referral Mid back pain Health Maintenance Due Date Last Done Comments COLON CANCER SCREENIN1944 COLONOSCOPY MAMMOGRAM ANNUAL 1944 MEDICARE AWV 1944 TETANUS SHOT (ADULT) 1959 BMI FOLLOW UP PLAN 1962 HEPATITIS C SCREENING 1962 FALL SCREEN 2009 OSTEOPOROSIS SCREENING 2009 PREVNAR >=65 (PCV13) 2009 FLU VACCINE > 6 MONTHS 04/29/2019 PNEUMOVAX >=65 (PPSV23) Completed 07/09/2016 documented as of this encounter Results Not on filedocumented in this encounter Visit Diagnoses Diagnosis S/P spinal fusion - Primary Arthrodesis status Mid back pain Backache, unspecified documented in this encounter Insurance Type Payer Benefit Subscriber ID Effective Phone Address Plan / Dates Group Medicare MEDICARE MEDICARE xxxxxxxxxx 2014- [address] Present [id number] [place] [address] Medicare AETNA AETNA xxxxxxxxxx 2015-P [id number] [place] [address] documented as of this encounter
[2019-06-24] MEDS ORDERED: ROPINIROLE HCL1 MG PO (21:43)
[2019-06-24] MEDS ORDERED: HYDROCODONE/APAP 10MG-325MG TAB PO ONE (22:15)
--- NOTE | 2019-06-24 22:52 | NUR ---
PT GIVEN IV LASIX, PUREWICK PLACED AND CALL LIGHT IN REACH
[2019-06-25] VITALS (9 sets, daily range): BP systolic 94–132; BP diastolic 51–79
[2019-06-25] MEDS ORDERED: MORPHINE SULFATE INJ 4 MG/ML INJ 1ML IV PRN
[2019-06-25] MEDS: ONDANSETRON HCL INJ 2MG/ML 2ML 2 MG/ML VIAL IV PRN (03:03)
[2019-06-25 04:47] LABS: ALBUMIN 2.4 g/dL (3.5-5.0); ALBUMIN/GLOBULIN RATIO 0.5 (0.8-2.0); ANION GAP 12.6 mmol/L (8-16); CREATININE, SERUM 0.93 mg/dL (0.57-1.11); POTASSIUM 3.6 mmol/L (3.5-5.1)
[2019-06-25 05:08] LABS: CREATINE KINASE MB 1.1 ng/mL (0-5.0)
[2019-06-25 05:30] LABS: BASOPHILS % 0.2 % (0.0-1.0); EOSINOPHILS # (AUTO) 0.1 (0.0-0.4); HEMATOCRIT 23.5 % (34.2-44.1); LYMPHOCYTES # (AUTO) 2.3 (1.0-3.2); MEAN CORPUSCULAR HEMOGLOBIN 22.4 pg (28-32); MEAN CORPUSCULAR HGB CONC 29.8 g/dL (31-35); MEAN CORPUSCULAR VOLUME 75.3 fL (81-99); MONOCYTES # (AUTO) 0.7 (0.2-0.8); MONOCYTES % 8.2 % (4.4-11.3); NEUTROPHILS # (AUTO) 5.6 (2.1-6.9); NEUTROPHILS % 63.7 % (38.7-80.0); PLATELET COUNT 457 x10e3/uL (140-360); RED BLOOD COUNT 3.12 x10e6/uL (3.6-5.1); RED CELL DISTRIBUTION WIDTH 17.6 % (11.7-14.4)
[2019-06-25] MEDS ORDERED: SODIUM CHLORIDE 0.9% 500ML 500 ML IV STA (06:18)
--- NOTE | 2019-06-25 08:35 | Diagnostic Imaging Report ---
CT of the abdomen and pelvis, without contrast, 06/25/2019. History: Anemia, weakness. Comparison: None available. Technique: Multidetector CT scanning of the abdomen and pelvis was performed from the level of the lung bases to the inferior pubic rami without intravenous or oral contrast. Coronal and sagittal multiplanar reformations were obtained. RADIATION DOSE: Total DLP: 495 mGy*cm Dose modulation, iterative reconstruction, and/or weight based adjustment of the mA/kV was utilized to reduce the radiation dose to as low as reasonably achievable. Discussion: Examination is limited due to absence of contrast as well as metallic streak artifact from spinal hardware obscuring the posterior details. Lung bases: There is bibasilar atelectasis. Abdomen: The gallbladder is absent. Calcifications are scattered throughout the liver. The biliary tree, spleen, pancreas, adrenal glands, and kidneys are unremarkable. The abdominal aorta is within normal limits. There is no bowel dilatation. There is no evidence of adenopathy or free fluid. Pelvis: The bladder is unremarkable. The uterus and adnexa are absent. There is no evidence of free fluid or adenopathy. Bones and soft tissues: Postoperative and advanced degenerative changes are present throughout the thoracic and lumbar spine. IMPRESSION: 1. Bibasilar atelectasis. 2. Status post cholecystectomy and hysterectomy. Otherwise unremarkable noncontrast exam. Signed by: Byron Gonsalves on 06/25/2019 8:32 AM
[2019-06-25] MEDS: ASPIRIN 81 MG CHEW TAB PO SCH (09:18)
[2019-06-25] MEDS: GABAPENTIN 300 MG CAP PO SCH ×3 (09:18→20:20)
[2019-06-25] MEDS: FENOFIBRATE 145 MG TAB PO SCH (09:18)
[2019-06-25] MEDS: FUROSEMIDE INJ 10 MG/ML 4 ML VIAL IV SCH ×2 (09:18→16:52)
[2019-06-25] MEDS: OXYBUTYNIN CHLORIDE 5 MG TAB PO SCH (09:18)
[2019-06-25] MEDS: HYDROCODONE/APAP 10MG-325MG TAB PO PRN ×4 (09:18→21:54)
[2019-06-25 10:30] LABS: BASOPHILS % 0.2 % (0.0-1.0); EOSINOPHILS # (AUTO) 0.1 (0.0-0.4); EOSINOPHILS % 0.8 % (0.0-6.0); HEMATOCRIT 24.3 % (34.2-44.1); HEMOGLOBIN 7.3 g/dL (12.0-16.0); LYMPHOCYTES # (AUTO) 1.7 (1.0-3.2); LYMPHOCYTES % 19.9 % (18.0-39.1); MEAN CORPUSCULAR VOLUME 76.4 fL (81-99); MONOCYTES # (AUTO) 0.7 (0.2-0.8); MONOCYTES % 8.3 % (4.4-11.3); NEUTROPHILS # (AUTO) 6.1 (2.1-6.9); PLATELET COUNT 409 x10e3/uL (140-360); RED BLOOD COUNT 3.18 x10e6/uL (3.6-5.1); RED CELL DISTRIBUTION WIDTH 17.6 % (11.7-14.4)
--- NOTE | 2019-06-25 10:43 | NUR ---
PT STABLE. SEEN BY ATTENDING AND DR Sanchez ORDERS TO GIVE BLOOD 2 UNITS WITH LASIX PRETRANSFUSION, THEN ADMIN IRON. PT AWARE.
[2019-06-25] MEDS ORDERED: SODIUM CHLORIDE 0.9% 250ML 250 ML IV ONE (10:45)
[2019-06-25] MEDS ORDERED: FAMOTIDINE INJ 20 MG in SODIUM CHLORIDE 0.9% 50ML 50 ML IV ONE ×2 (11:00→20:00)
[2019-06-25] MEDS ORDERED: DEXAMETHASONE PHOS 10MG INJ 20 MG in SODIUM CHLORIDE 0.9% 50ML 50 ML IV ONE ×2 (11:00→19:30)
--- NOTE | 2019-06-25 11:00 | NUR ---
RECEIVED PT FROM ER. EDUCATED PT ABOUT FALL PRECAUTIONS. PT VERBALIZED UNDERSTANDING. BED IS LOCKED. CALL LIGHT WITH IN EASY REACH. PT DENIES NEEDS AT THIS TIME. ADMINISTER BLOOD BEFORE IRON TRANSFUSION PER THE REPORT FROM ER. WAITING FOR THE BLOOD FROM THE LAB.
[2019-06-25] MEDS ORDERED: DIPHENHYDRAMINE HCL INJ 25 MG in SODIUM CHLORIDE 0.9% 50ML 50 ML IV ONE ×2 (11:30→20:30)
[2019-06-25] MEDS ORDERED: IRON DEXTRAN INJ 50 MG in SODIUM CHLORIDE 0.9% 100 ML IV ONE ×2 (12:00→21:00)
[2019-06-25] MEDS ORDERED: IRON DEXTRAN INJ 500 MG in SODIUM CHLORIDE 0.9% 500ML 500 ML IV PRN ×2 (12:30→22:30)
[2019-06-25] MEDS: METHOCARBAMOL 750 MG TAB PO PRN (13:35)
--- NOTE | 2019-06-25 14:45 | NUR ---
CALLED LAB REGARDING BLOOD TRANSFUSION. WILL CALL BACK PER THE LAB.
--- NOTE | 2019-06-25 16:11 | History and Physical ---
CHIEF COMPLAINT: Bilateral lower extremities swelling, progressively getting worsened, the swelling now on her abdominal wall. HISTORY OF PRESENT ILLNESS: A 73-year-old pleasant white female with past medical history of multiple medical problems, was admitted at [facility] last evening with above complaints. The patient for the first time as a new patient, seen in my office yesterday afternoon with above complaints. As per the patient, she started having bilateral leg swelling for 2 weeks, progressively getting worsened and now even having abdominal wall swelling, fullness and hence the patient came to my office. I referred the patient to the ER for further care and treatment. In the emergency room, the patient was seen by emergency room doctor and admitted for further care and treatment. The patient was given IV Lasix in the emergency room. At present, the patient sitting comfortably in the chair, eating breakfast. No chest pain. No shortness of breath. No nausea or vomiting. No abdominal pain. No loss of consciousness. No palpitations. No headaches. No hematemesis. No melena. No hematuria or dysuria. No fever. No cough. No witnessed seizures. PAST MEDICAL HISTORY: 1. Hypertension. 2. Hyperlipidemia. 3. Depression and anxiety. 4. Acid reflux. 5. Hypothyroidism. 6. Chronic neck and back pain. PAST SURGICAL HISTORY: 1. Left total knee replacement. 2. Back surgery. 3. Neck surgery. FAMILY HISTORY: Father; COPD and CAD, diabetes mellitus, hypertension. Mother; heart disease. SOCIAL HISTORY: No smoking. No alcohol. No illicit drug use. , lives with . ALLERGIES: LEVAQUIN AND IODINE. REVIEW OF SYSTEMS: As per HPI. PHYSICAL EXAMINATION: GENERAL: The patient is alert, awake, and oriented x3, in no apparent distress, sitting in chair, eating breakfast. VITAL SIGNS: Temperature is 98, pulse is 76 per minute, respiratory rate is 18 per minute, blood pressure is 120/70, and saturation is 100%. SKIN: No cyanosis. No icterus. No pallor. HEENT: Normocephalic, atraumatic. PERRLA plus. NECK: Soft, supple. No JVD. No carotid bruit. No lymphadenopathy. LUNGS: Air entry bilaterally equal. Bibasal few rales plus. HEART: S1, S2 present. No murmur, gallop, or rub. ABDOMEN: Soft, nontender. Bowel sounds plus. Abdominal wall swelling plus. YEAST DISTILLER: Alert and oriented x3. No focal deficit. EXTREMITIES: Bilateral lower extremity extensive edema. LABORATORY DATA: This morning, white count 8.7, hemoglobin 7, on admission to here hemoglobin 7.5, platelets 457. Sodium 135, potassium 3.6, chloride 96, bicarb 30, BUN 30, creatinine 0.9. LFTs noted. Chest x-ray shows prominence of central pulmonary vasculature and interstitial markings. CT abdomen and pelvis without contrast shows bibasilar atelectasis, status post cholecystectomy and hysterectomy. Otherwise unremarkable noncontrast exam. ASSESSMENT: 1. Bilateral lower extremity swelling with abdominal wall swelling, rule out likely congestive heart failure. 2. History of hypertension. 3. Hyperlipidemia. 4. Depression with anxiety. 5. Chronic pain syndrome. PLAN: 1. Admit the patient to med tele. Start aspirin, started on IV Lasix 40 mg IV q.12 hours, 2D echo, venous Doppler of the legs. Cardiology consultation with Dr. Gallegos. 2. Anemia. We will get iron studies. Hematology consultation, Dr. Ba. We will defer blood transfusion decision to Dr. Ba. Continue home medications. Further care and treatment as per clinical course of patient in the hospital. Discussed with the patient in detail. MD ATUL Nath/FELIZL /[id number]
--- NOTE | 2019-06-25 19:00 | NUR ---
BEDSIDE SHIFT REPORT GIVEN TO THE DIP PAINTER RN. PT DENIED FURTHER NEEDS.
--- NOTE | 2019-06-25 19:00 | NUR ---
RECEIVED PATIENT IN BEDSIDE SHIFT REPORT. PATIENT RESTING AT THIS TIME, PAIN 7/10, BUT PATIENT STATES THAT IS NORMAL FOR HER. WILL ADMINISTER PAIN MEDICINE WHEN TIME. NO OTHER S&S OF DISTRESS NOTED. PURE WICK DRAINING CLEAR, YELLOW URINE. BED LOCKED IN LOWEST POSITION, SIDE RAILS UPX2, CALL LIGHT IN REACH.
[2019-06-25] MEDS: ATORVASTATIN 20 MG TAB PO SCH (20:20)
[2019-06-25] MEDS: MONTELUKAST SODIUM 10 MG TAB PO SCH (20:20)
[2019-06-25] MEDS: ZOLPIDEM TARTRATE 5 MG TAB PO PRN (21:53)
[2019-06-25] MEDS ORDERED: SODIUM CHLORIDE 0.9% 250ML 250 ML ONE (22:27)
[2019-06-25] MEDS: FUROSEMIDE INJ 10 MG/ML 2 ML VIAL IV PRN (22:54)
--- NOTE | 2019-06-25 23:05 | NUR ---
FIRST UNIT OF PRBC STARTED AT THIS TIME. VITALS STABLE. NURSE RENTAL MANAGER: AT, RN, AT 2300. LASIX 20MG IV GIVEN PRIOR TO START PER MD ORDER.
[2019-06-26] VITALS (17 sets, daily range): BP systolic 103–163; BP diastolic 54–86
[2019-06-26] MEDS: METHOCARBAMOL 750 MG TAB PO PRN ×4 (00:12→20:53)
--- NOTE | 2019-06-26 01:49 | Consultation ---
DATE OF CONSULTATION: 06/25/2019 Cardiology consult note. REASON FOR CONSULT: Congestive heart failure. HISTORY OF PRESENT ILLNESS: The patient is a 73-year-old female, no prior history of cardiovascular issues, who presents with worsening lower extremity edema, shortness of breath for the past several days. She says she has chronic swelling in her lower extremities. However, for last five days, it has been significantly worse. Also reports some shortness of breath with exertion. Denies any fevers, chills, or cough. Has severe chronic back pain issues, multiple surgeries, on home opioid. REVIEW OF SYSTEMS: As per HPI, otherwise negative. SOCIAL HISTORY: She does not smoke, drink, or abuse drugs. FAMILY HISTORY: Noncontributory. PAST MEDICAL HISTORY: Hypertension, hyperlipidemia, chronic back pain, on opioid, and chronic lower extremity edema. OUTPATIENT MEDICATIONS: Reviewed. ALLERGIES: REVIEWED. THE PATIENT IS ALLERGIC TO IODINE AND LEVOFLOXACIN. OBJECTIVE: VITAL SIGNS: Temperature afebrile, pulse 72, respiratory rate 16, blood pressure 115/69, and saturating 99% on 2 L nasal cannula. GENERAL: Elderly female, well developed, well nourished, no acute distress. CARDIOVASCULAR: Regular rate and rhythm. No murmurs, rubs, or gallops. LUNGS: Clear to auscultation anteriorly. ABDOMEN: Soft, nontender, nondistended. Obese. NEURO AND PSYCH: Alert and oriented to person, place, and time. Normal affect. LOWER EXTREMITIES: The patient has 3+ pitting edema in bilateral lower extremities. INPATIENT MEDICATIONS: Reviewed. LABORATORY DATA: Reviewed, shows hemoglobin of 7.3, albumin 2.4, and BNP of 131, and troponin is negative. IMAGING DATA: Reviewed. Chest x-ray shows pulmonary vascular congestion. TELEMETRY DATA: Reviewed and shows normal sinus rhythm. ASSESSMENT AND PLAN: 1. Acute diastolic heart failure exacerbation. 2. Lower extremity edema, likely venous insufficiency. 3. Hypertension. 4. Hyperlipidemia. 5. Anemia. 6. Hypoalbuminemia. PLAN: Continue IV diuretic. BNP has normalized. Lower extremity edema is improving. Echocardiogram shows preserved left ventricular ejection fraction. No severe valvular abnormalities. Lower extremity deep venous thrombosis study to essentially negative for deep venous thrombosis. Once the patient is more euvolemic, she is okay to be discharged. Further management and treatment can be done on an outpatient basis. We will start optimal medical therapy for heart failure as blood pressure and heart rate tolerate. Thank you for this consult. We will continue to follow. MD TIFF SanP/MODL /[id number]
[2019-06-26] MEDS: HYDROCODONE/APAP 10MG-325MG TAB PO PRN ×5 (02:03→20:10)
--- NOTE | 2019-06-26 02:25 | NUR ---
FIRST UNIT OF PRBCS FINISHED AT THIS TIME. VITALS STABLE. NO ADVERSE REACTIONS NOTED.
[2019-06-26] MEDS: FUROSEMIDE INJ 10 MG/ML 2 ML VIAL IV PRN (02:50)
--- NOTE | 2019-06-26 03:00 | NUR ---
SECOND UNIT OF PRBCS STARTED AT THIS TIME. NURSE FUND ACCOUNTING MANAGER: JOEL LOMELI. LASIX 20MG IV GIVEN PRIOR PER MD ORDER.
[2019-06-26] MEDS ORDERED: DEXAMETHASONE PHOS 10MG INJ 20 MG in SODIUM CHLORIDE 0.9% 50ML 50 ML IV ONE (06:00)
[2019-06-26] MEDS: LEVOTHYROXINE SODIUM 100 MCG TAB PO SCH (06:10)
--- NOTE | 2019-06-26 06:22 | NUR ---
2ND UNIT OF PRBCS COMPLETED AT THIS TIME. NO ADVERSE REACTIONS NOTED. PATIENT STABLE.
[2019-06-26] MEDS ORDERED: FAMOTIDINE INJ 20 MG in SODIUM CHLORIDE 0.9% 50ML 50 ML IV ONE (06:30)
[2019-06-26] MEDS ORDERED: DIPHENHYDRAMINE HCL INJ 25 MG in SODIUM CHLORIDE 0.9% 50ML 50 ML IV ONE (07:00)
--- NOTE | 2019-06-26 07:00 | NUR ---
RECEIVED BEDSIDE SHIFT REPORT RECEIVED FROM THE SIGN HANGER RN. BED IS LOCKED AND IN LOWEST POSITION, SIDE RAILS UPX2, CALL LIGHT IN REACH. CALL LIGHT WITH IN EASY REACH BED ALARM IS ON. PT DENIES NEEDS AT THIS TIME.
[2019-06-26] MEDS ORDERED: IRON DEXTRAN INJ 50 MG in SODIUM CHLORIDE 0.9% 100 ML IV ONE (07:30)
[2019-06-26] MEDS ORDERED: SODIUM CHLORIDE 0.9% 250ML 250 ML ONE (07:58)
[2019-06-26] MEDS: FUROSEMIDE INJ 10 MG/ML 4 ML VIAL IV SCH ×2 (08:01→16:36)
[2019-06-26] MEDS: PANTOPRAZOLE SOD 40 MG TABEC PO SCH (08:04)
[2019-06-26] MEDS: ASPIRIN 81 MG CHEW TAB PO SCH (08:04)
[2019-06-26] MEDS: GABAPENTIN 300 MG CAP PO SCH ×3 (08:04→21:22)
[2019-06-26] MEDS: FENOFIBRATE 145 MG TAB PO SCH (08:05)
[2019-06-26] MEDS: OXYBUTYNIN CHLORIDE 5 MG TAB PO SCH (08:05)
[2019-06-26] MEDS ORDERED: LIDOCAINE 5% PATCH TP SCH (09:00)
[2019-06-26] MEDS ORDERED: IRON DEXTRAN INJ 500 MG in SODIUM CHLORIDE 0.9% 500ML 500 ML IV PRN (09:00)
[2019-06-26 09:51] LABS: BASOPHILS % 0.3 % (0.0-1.0); EOSINOPHILS # (AUTO) 0.1 (0.0-0.4); EOSINOPHILS % 0.9 % (0.0-6.0); HEMATOCRIT 32.5 % (34.2-44.1); HEMOGLOBIN 10.3 g/dL (12.0-16.0); LYMPHOCYTES # (AUTO) 1.1 (1.0-3.2); LYMPHOCYTES % 14.8 % (18.0-39.1); MEAN CORPUSCULAR HEMOGLOBIN 24.6 pg (28-32); MEAN CORPUSCULAR HGB CONC 31.7 g/dL (31-35); MEAN CORPUSCULAR VOLUME 77.6 fL (81-99); MONOCYTES # (AUTO) 0.3 (0.2-0.8); MONOCYTES % 4.3 % (4.4-11.3); NEUTROPHILS # (AUTO) 6.1 (2.1-6.9); NEUTROPHILS % 79.1 % (38.7-80.0); PLATELET COUNT 386 x10e3/uL (140-360); RED BLOOD COUNT 4.19 x10e6/uL (3.6-5.1); RED CELL DISTRIBUTION WIDTH 17.9 % (11.7-14.4)
[2019-06-26 10:12] LABS: ALBUMIN 2.5 g/dL (3.5-5.0); ALBUMIN/GLOBULIN RATIO 0.5 (0.8-2.0); ANION GAP 13.9 mmol/L (8-16); CREATININE, SERUM 1.03 mg/dL (0.57-1.11); POTASSIUM 3.9 mmol/L (3.5-5.1)
[2019-06-26] MEDS: LIDOCAINE 5% PATCH TP SCH ×2 (10:12→21:22)
[2019-06-26] MEDS: ONDANSETRON HCL INJ 2MG/ML 2ML 2 MG/ML VIAL IV PRN (17:03)
--- NOTE | 2019-06-26 18:15 | NUR ---
URINE SAMPLE GIVEN TO THE LAB. INFORMED LAB ABOUT TOTAL PROTEIN COUNT.
--- NOTE | 2019-06-26 18:20 | NUR ---
ORDER CHANGED FROM 24 HR URINE TO RANDOM URINE SAMPLE PER THE LAB
--- NOTE | 2019-06-26 18:42 | Consultation ---
DATE OF CONSULTATION: 06/25/[address] Asif. HISTORY OF PRESENT ILLNESS: Mckenzie Cuevas is a the 73-year-old female referred to me for evaluation of anemia. The patient had weakness, shortness of breath, swelling of both feet and subsequently was seen in the ER. The patient was referred to me because of anemia. SOCIAL HISTORY: Noncontributory. FAMILY HISTORY: Noncontributory. ALLERGIES: REPORTED NONE. MEDICATIONS: At this time please review the EMR. HISTORY OF PAST ILLNESS: History of hypertension, history of hyperlipidemia, history of anxiety disorder, history of major depression, history of acid reflux, history of hypothyroidism, history of chronic pain syndrome. PAST SURGICAL HISTORY: History of left total knee replacement, history of back and neck surgeries. FAMILY HISTORY: History of coronary artery disease, diabetes. REVIEW OF SYSTEMS: HEENT: Normal. CARDIAC: History of hyperlipidemia. GASTROINTESTINAL: History of GERD. GENITOURINARY: Normal. MUSCULOSKELETAL: The patient is on Robaxin for back pain. SKIN AND BREASTS: Normal. NEUROENDOCRINE: Essentially normal. PHYSICAL EXAMINATION: GENERAL: A moderately built female, no adenopathy, very anemic. HEART: Within normal limits. LUNGS: Clear. ABDOMEN: Soft. RECTAL: Deferred. VAGINAL: Deferred. CENTRAL NERVOUS SYSTEM: Essentially normal. EXTREMITIES: 2+ pitting edema of the feet. LABORATORY DATA: Hemoglobin of 7.5, hematocrit 24.9, MCV 75.7, MCHC 30.1, RDW high at 17.6, white count of 9116, platelets of 476,000. Chemistry shows a sodium of 138, potassium 4.0, chloride 100, CO2 28, BUN 29, creatinine 1.0, blood sugar 100, calcium 8.9, bilirubin 0.5, SGOT 17, SGPT 9, alkaline phosphatase 64, total protein 7.3, albumin 2.6, globulin 4.7, repeat globulins are still 4.7. IMAGING DATA: Consists of Doppler of both lower extremities. However, the results are still pending. CT of the abdomen and pelvis does not reveal anything except for postcholecystectomy and hysterectomy. Chest x-ray reported to have mild pulmonary vascular congestion. IMPRESSION: 1. Iron deficiency anemia. 2. Hypoalbuminemia. 3. Hyperglobulinemia. 4. History of arthroplasty and knee surgery. PLAN: Plan is to give her INFeD and blood. Thank you very much for allowing me to participate in management of this patient. Quantitation of immunoglobulins will be done. If upper and lower endoscopies have not been done in the past, the patient should have those. MD SERGIO Alvarez/MODL /[id number] cc: Yi Asif MD
--- NOTE | 2019-06-26 19:22 | NUR ---
BEDSIDE SHIFT REPORT RECEIVED FROM THE LEATHER WHITENER RN. PT DENIED FURTHER NEEDS.
[2019-06-26] MEDS: MONTELUKAST SODIUM 10 MG TAB PO SCH (21:22)
[2019-06-26] MEDS: ATORVASTATIN 20 MG TAB PO SCH (21:22)
[2019-06-27] VITALS (8 sets, daily range): BP systolic 108–162; BP diastolic 64–92
[2019-06-27] MEDS: HYDROCODONE/APAP 10MG-325MG TAB PO PRN ×5 (02:15→20:35)
--- NOTE | 2019-06-27 03:20 | Progress Note ---
DATE: 06/26/2019 Cardiology Progress Note SUBJECTIVE: The patient denies chest pain. She states she continues to have shortness of breath and is not feeling well because she was unable to keep down the dinner. OBJECTIVE: VITAL SIGNS: Temperature 97.4 degrees, pulse 72, respiratory rate 19, blood pressure 144/74, and oxygen saturation 95%. GENERAL: Obese woman, in no acute distress, awake and alert. LUNGS: Clear to auscultation bilaterally. No wheezing or crackles. CARDIOVASCULAR: Normal rate, regular rhythm. No murmur. Normal S1 and S2. ABDOMEN: Soft, nontender. EXTREMITIES: 2+ pitting edema. CARDIAC MEDICATIONS: Atorvastatin 20 mg p.o. at bedtime, furosemide 40 mg IV b.i.d., fenofibrate 145 mg p.o. daily, aspirin 81 mg p.o. daily, levothyroxine 100 mcg p.o. daily. LABORATORY DATA: WBC 10.7, hemoglobin 10.3, hematocrit 32.5, platelets 386. Sodium 137, potassium 3.9, chloride 94, CO2 of 33, BUN 31, creatinine 1.03. TELEMETRY: Normal sinus rhythm. IMPRESSION: 1. Acute diastolic heart failure. 2. Lower extremity edema, likely venous insufficiency. 3. Hypertension. 4. Hyperlipidemia. 5. Anemia. 6. Hypoalbuminemia. RECOMMENDATIONS: Continue gentle diuresis. Monitor creatinine closely. Replete electrolytes. Monitor the patient on telemetry. Continue current cardiac medications. Blood pressure is adequately controlled for age, likely transition to p.o. diuretics soon. Thank you for this consult. We will continue to follow. Gin Canales MD ABS/MODL /[id number]
[2019-06-27] MEDS: METHOCARBAMOL 750 MG TAB PO PRN ×2 (05:11→20:50)
[2019-06-27] MEDS: LEVOTHYROXINE SODIUM 100 MCG TAB PO SCH (05:40)
[2019-06-27 06:38] LABS: BASOPHILS % 0.1 % (0.0-1.0); EOSINOPHILS % 0.1 % (0.0-6.0); HEMATOCRIT 33.1 % (34.2-44.1); HEMOGLOBIN 10.3 g/dL (12.0-16.0); LYMPHOCYTES # (AUTO) 2.2 (1.0-3.2); LYMPHOCYTES % 29.5 % (18.0-39.1); MEAN CORPUSCULAR HEMOGLOBIN 24.5 pg (28-32); MEAN CORPUSCULAR HGB CONC 31.1 g/dL (31-35); MEAN CORPUSCULAR VOLUME 78.8 fL (81-99); MONOCYTES # (AUTO) 0.6 (0.2-0.8); MONOCYTES % 7.4 % (4.4-11.3); NEUTROPHILS # (AUTO) 4.7 (2.1-6.9); NEUTROPHILS % 62.2 % (38.7-80.0); PLATELET COUNT 428 x10e3/uL (140-360); RED CELL DISTRIBUTION WIDTH 18.6 % (11.7-14.4)
[2019-06-27 07:03] LABS: ALBUMIN 2.6 g/dL (3.5-5.0); ALBUMIN/GLOBULIN RATIO 0.6 (0.8-2.0); ANION GAP 15.3 mmol/L (8-16); CALCIUM 9.6 mg/dL (8.4-10.2); CREATININE, SERUM 1.05 mg/dL (0.57-1.11); POTASSIUM 3.3 mmol/L (3.5-5.1)
[2019-06-27] MEDS: GABAPENTIN 300 MG CAP PO SCH ×3 (07:52→20:41)
[2019-06-27] MEDS: FUROSEMIDE INJ 10 MG/ML 4 ML VIAL IV SCH ×2 (07:52→16:05)
[2019-06-27] MEDS: ASPIRIN 81 MG CHEW TAB PO SCH (07:52)
[2019-06-27] MEDS: FENOFIBRATE 145 MG TAB PO SCH (07:52)
[2019-06-27] MEDS: PANTOPRAZOLE SOD 40 MG TABEC PO SCH (07:52)
[2019-06-27] MEDS: OXYBUTYNIN CHLORIDE 5 MG TAB PO SCH (07:52)
[2019-06-27] MEDS: LIDOCAINE 5% PATCH TP SCH ×2 (07:53→20:41)
[2019-06-27] MEDS ORDERED: POTASSIUM CHLORIDE 20 MEQ TAB CR PO ONE (10:30)
[2019-06-27] MEDS ORDERED: LACTULOSE SYRUP 20 GM/30 ML UDC PO PRN (18:30)
--- NOTE | 2019-06-27 19:20 | NUR ---
Report given to oncoming nurse of patient's status. Resting in bed, side rails upx2, call light within reach. No s/s of acute distress noted.
[2019-06-27] MEDS: ATORVASTATIN 20 MG TAB PO SCH (20:41)
[2019-06-27] MEDS: MONTELUKAST SODIUM 10 MG TAB PO SCH (20:41)
[2019-06-27] MEDS: ZOLPIDEM TARTRATE 5 MG TAB PO PRN (20:50)
[2019-06-28] VITALS: BP 178/94
--- NOTE | 2019-06-28 01:19 | Progress Note ---
DATE: 06/27/2019 Cardiology Progress Note SUBJECTIVE: The patient denies chest pain or shortness of breath. OBJECTIVE: VITAL SIGNS: Temperature 97.4, pulse 72, respiratory rate 21, blood pressure 110/64, and oxygen saturation 94% on 2 L nasal cannula. GENERAL: Obese woman in no acute distress. Awake and alert. LUNGS: Clear to auscultation bilaterally. No wheezes or crackles. CARDIOVASCULAR: Normal rate. Regular rhythm. No murmur. Normal S1, S2. ABDOMEN: Soft, nontender. EXTREMITIES: 2+ pitting edema. CARDIAC MEDICATIONS: 1. Atorvastatin 20 mg p.o. at bedtime. 2. Furosemide 40 mg IV b.i.d. 3. Fenofibrate 145 mg p.o. daily. 4. Aspirin 81 mg p.o. daily. 5. Levothyroxine 100 mg p.o. daily. LABORATORY DATA: WBC 10.6, hemoglobin 10.3, hematocrit 33.1, platelets 428. Sodium 140, potassium 2.3, chloride 95, CO2 of 33, BUN 35, creatinine 1.05. Telemetry, normal sinus rhythm. IMPRESSION: 1. Acute diastolic heart failure. 2. Lower extremity edema likely venous insufficiency. 3. Hypertension and hyperlipidemia. 4. Anemia. 5. Hypoalbuminemia. RECOMMENDATIONS: Continue gentle diuresis. Monitor creatinine closely. Replete electrolytes. Monitor patient on telemetry. Continue current cardiac medications. Blood pressure is well controlled for age unless we will be able to transition p.o. diuretics. Thank you for this consult, we will continue to follow. Gin Canales MD ABS/MODL /[id number]
[2019-06-28 04:00] VITALS: BP 148/79
[2019-06-28 05:40] LABS: ALBUMIN 2.6 g/dL (3.5-5.0); ALBUMIN/GLOBULIN RATIO 0.6 (0.8-2.0); ANION GAP 15.9 mmol/L (8-16); CALCIUM 9.5 mg/dL (8.4-10.2); CREATININE, SERUM 1.15 mg/dL (0.57-1.11); POTASSIUM 3.9 mmol/L (3.5-5.1)
[2019-06-28] MEDS: LEVOTHYROXINE SODIUM 100 MCG TAB PO SCH (05:45)
[2019-06-28] MEDS: HYDROCODONE/APAP 10MG-325MG TAB PO PRN ×3 (05:45→14:33)
--- NOTE | 2019-06-28 07:00 | NUR ---
received am report from rn and morning rounds done. pt is alert resting in bed, no s/s of distress. call light is within reach and instructed pt to call nurse for help. side rails are up
[2019-06-28 07:55] VITALS: BP 164/92
[2019-06-28 09:11] VITALS: BP 164/92
[2019-06-28] MEDS: ASPIRIN 81 MG CHEW TAB PO SCH (09:50)
[2019-06-28] MEDS: OXYBUTYNIN CHLORIDE 5 MG TAB PO SCH (09:50)
[2019-06-28] MEDS: FENOFIBRATE 145 MG TAB PO SCH (09:50)
[2019-06-28] MEDS: GABAPENTIN 300 MG CAP PO SCH ×2 (09:50→14:27)
[2019-06-28] MEDS: PANTOPRAZOLE SOD 40 MG TABEC PO SCH (09:50)
[2019-06-28] MEDS: FUROSEMIDE INJ 10 MG/ML 4 ML VIAL IV SCH (09:51)
[2019-06-28] MEDS: LIDOCAINE 5% PATCH TP SCH (09:54)
[2019-06-28 11:19] VITALS: BP 102/69
--- NOTE | 2019-06-28 14:33 | NUR ---
Received order for home health. CM spoke to pt at bedside. Pt stated she's currently on service with [facility], [place] and would like to resume services with them. Choice letter signed and placed in chart. Copy to pt. IMM letter explained to pt. She verbalized understanding. Signed copy placed in chart. Copy to pt. CM business card given to pt for any questions/concerns. Resumption order and clinicals faxed to [facility] Called and spoke with Stephanie at [facility] and informed her of anticipated discharge for today. Patient address where service will be received: [address] [place], [place] [address] [place] [address] Name of home health company: [employer] Address of company: [address] [place] [id number] Services to receive: detention, PT/OT Anticipated date services will begin: June 29, 2019
[2019-06-28 15:16] VITALS: BP 120/66
--- NOTE | 2019-06-28 17:28 | Progress Note ---
DATE: Cardiology Progress Note SUBJECTIVE: The patient was found sleeping comfortably, edema improved. OBJECTIVE: VITAL SIGNS: Temperature is 99.7, heart rate 67, respirations are 16, blood pressure is 102/69, saturation 94% on room air. GENERAL: Well appearing, no apparent distress. CARDIOVASCULAR: Regular rate and rhythm. LUNGS: Clear to auscultation. ABDOMEN: Soft, nontender, nondistended. EXTREMITIES: Edema. CARDIOVASCULAR MEDICATIONS: Reviewed. LABORATORY DATA: Reviewed. Creatinine 1.15. TELEMETRY: Monitoring revealed normal sinus rhythm. IMPRESSION: 1. [id number] diastolic heart failure. 2. Lower extremity edema. 3. Venous insufficiency. 4. Hypertension. 5. Hyperlipidemia. 6. Anemia. 7. Hypoalbuminemia. RECOMMENDATIONS: Continue Lasix intravenously for diuresis. Monitor daily creatinine and urinary outputs. Continue current cardiovascular medications for blood pressure control. Likely can transition to oral diuretics tomorrow. Patrick Dwyer DO BM/MODL /[id number]
== END 2019-06-28 15:30 | disposition home or self-care (01) | DRG 293 ==
LOC: ER 19:07 → ERHOLD 21:25 → MED/SURG2 06-25 11:07
PROVIDERS: ADMIT Internal Medicine; ATTEND Internal Medicine
PROC: 30233N1 Transfusion of Nonautologous Red Blood Cells into Peripheral Vein, Percutaneous Approach (ICD-10-PCS; principal; 2019-06-25)
DX: I11.0 Hypertensive heart disease with heart failure (principal); R60.0 Localized edema; E78.5 Hyperlipidemia, unspecified; D50.9 Iron deficiency anemia, unspecified; R77.1 Abnormality of globulin; G89.4 Chronic pain syndrome; F32.9 Major depressive disorder, single episode, unspecified; F41.9 Anxiety disorder, unspecified; Z90.49 Acquired absence of other specified parts of digestive tract; Z90.710 Acquired absence of both cervix and uterus; E88.09 Other disorders of plasma-protein metabolism, not elsewhere classified; I87.2 Venous insufficiency (chronic) (peripheral); I50.33 Acute on chronic diastolic (congestive) heart failure
CPT/HCPCS: 36415; 71046; 74176; 80053; 82270; 82550; 82553; 82784; 83880; 84156; 84484; 85025; 86850; 86870; 86880; 86900; 86905; 86920; 86922; 93005; 93306; 93970; 96374; 99001; 99285; J1100; J1200; J1750; J1940; J2270; J2405; J7040; J7050; P9016

== ENCOUNTER 2019-07-03 18:45 | Emergency (ER) | payer MEDICARE, OTHER ==
[~2019-07-03] VITALS: Ht 157.5 cm; Wt 78.5 kg
[~2019-07-03 18:45] MED LIST changes: +DOCUSATE SODIU250 MG PO; +FENOFIBRATE145 MG PO; +GABAPENTIN300 MG PO; +LASIX20 MG PO; +METHOCARBAMOL750 MG PO; +MONTELUKAST SOD10 MG PO; +OXYBUTYNIN CHLOR5 MG PO; +PANTOPRAZOLE SO40 MG PO; +ROPINIROLE HCL1 MG PO; +SYNTHROID100 MCG PO
--- NOTE | 2019-07-03 20:25 | Diagnostic Imaging Report ---
History: Back pain, status post fall 3 days ago. Comparison studies: None Technique: Axial were obtained without IV contrast through the thoracic region. Coronal and sagittal images reconstructed from the axial data. Dose modulation, iterative reconstruction, and/or weight based adjustment of the mA/kV was utilized to reduce the radiation dose to as low as reasonably achievable. Intravenous contrast: None Findings: Alignment: Reversal of thoracic kyphosis in the upper thoracic spine. Levocurvature of thoracolumbar region may be positional.. Soft tissues: Few scattered hepatic calcification, largest measures 1.2 cm along the medial margin of right hepatic lobe. Atherosclerotic calcification in the aorta and its branches. Paraspinal muscles: Suboptimal evaluation due to metallic streak artifacts. Spinal cord: Can not be evaluated. Vertebrae: Age indeterminate superior and inferior endplate compression fracture and anterior wedging deformity of T2 vertebral bodies resulting in approximately 30% loss of vertebral body height. No discrete retropulsion of fracture fragment into spinal canal. Posterior thoracic spine fusion that extends from level T2 up to level L1, inferior extent is not included in the field of view. Posterior laminectomy from level T6-L1. Suboptimal evaluation at these level due to metallic streak artifacts. The metallic hardware is intact. Post vertebroplasty cementing material within T9 and T10 vertebral body. 1.9 x 1.2 cm lytic lesion within T8 vertebral body. Diffuse osseous demineralization. Degenerative changes: Reversal of lordosis in visualized portion of lower cervical spine. Severe degenerative disc disease in lower cervical spine. C6-C7: Mild bilateral foraminal stenosis due to facet and uncovertebral arthrosis. Suboptimal evaluation for canal or foraminal stenosis in the thoracic spine due to significant metallic streak artifacts. Incidental finding: Bibasilar atelectasis. IMPRESSION: 1. Age indeterminate possible acute or subacute superior and inferior endplate compression fracture and anterior wedging deformity of T2. 2. Posterior thoracic spine fusion from level T2-L1, inferior extent not completely visualized with posterior laminectomy from T6 to L1. 3. Nonspecific 1.9 cm lytic lesion within T8 vertebral body, differential consideration includes metastasis, plasmacytoma. 4. Ligament, spinal cord and or vascular abnormalities cannot be excluded on the basis of this examination. Signed by: Dr. Celeste Thomas M.D. on 07/03/2019 8:22 PM
[2019-07-03 21:20] VITALS: BP 144/97
== END 2019-07-03 21:49 | disposition home or self-care (01) ==
LOC: ER 18:45
DX: M54.6 Pain in thoracic spine (principal); M48.54XA Collapsed vertebra, not elsewhere classified, thoracic region, initial encounter for fracture; G89.29 Other chronic pain; W18.30XA Fall on same level, unspecified, initial encounter; I10 Essential (primary) hypertension; E78.5 Hyperlipidemia, unspecified; J45.909 Unspecified asthma, uncomplicated
CPT/HCPCS: 72128; 99283

== ENCOUNTER 2020-07-08 21:07 | Inpatient (IN) | payer MEDICARE, OTHER ==
[~2020-07-08] VITALS: Ht 157.5 cm; Wt 78.5 kg
[2020-07-08 21:39] LABS: BASOPHILS % 0.4 % (0.0-1.0); EOSINOPHILS % 0.4 % (0.0-6.0); HEMATOCRIT 36.4 % (34.2-44.1); HEMOGLOBIN 11.3 g/dL (12.0-16.0); MEAN CORPUSCULAR HEMOGLOBIN 30.6 pg (28-32); MEAN CORPUSCULAR VOLUME 98.6 fL (81-99); MONOCYTES # (AUTO) 0.7 (0.2-0.8); NEUTROPHILS # (AUTO) 6.9 (2.1-6.9); NEUTROPHILS % 64.4 % (38.7-80.0); PLATELET COUNT 404 x10e3/uL (140-360); RED BLOOD COUNT 3.69 x10e6/uL (3.6-5.1)
[2020-07-08 21:58] LABS: CLARITY,URINE CLOUDY (CLEAR); COLOR,URINE YELLOW (YELLOW); LEUKOCYTE ESTERASE ,URINE LARGE (NEGATIVE)
[2020-07-08 21:59] LABS: BILIRUBIN,URINE SMALL (NEGATIVE); KETONES,URINE NEGATIVE (NEGATIVE); NITRITE,URINE POSITIVE (NEGATIVE); PROTEIN,URINE DIPSTICK >=300 (NEGATIVE); URINE UROBILINOGEN 0.2 mg/dL (0.2 - 1)
[2020-07-08 21:59] LABS: ALANINE AMINOTRANSFERASE 22 IU/L (0-55); ALBUMIN 2.3 g/dL (3.5-5.0); ALBUMIN/GLOBULIN RATIO 0.5 (0.8-2.0); ALKALINE PHOSPHATASE 209 IU/L (40-150); ANION GAP 17.5 mmol/L (8-16); BLOOD UREA NITROGEN 8 mg/dL (7-26); BUN/CREATININE RATIO 11 (6-25); CALCIUM 8.1 mg/dL (8.4-10.2); CARBON DIOXIDE 23 mmol/L (22-29); CHLORIDE 104 mmol/L (98-107); CREATINE KINASE 54 IU/L (29-168); CREATININE, SERUM 0.72 mg/dL (0.57-1.11); EST GLOMERULAR FILTRATION RATE > 60 ML/MIN (60-); GLUCOSE 89 mg/dL (74-118); POTASSIUM 3.5 mmol/L (3.5-5.1); SODIUM 141 mmol/L (136-145)
[2020-07-08 22:00] LABS: WBC,URINE (MAN) >50 /HPF (0-5)
[2020-07-08 22:01] LABS: AMORPHOUS SEDIMENT,URINE FEW (FEW); BACTERIA,URINE MANY /HPF; EPITHELIAL CELLS,URINE FEW /LPF
[2020-07-08 22:02] LABS: TRIPLE PHOSPHATE CRYSTAL,UR RARE (FEW)
[2020-07-09] VITALS (8 sets, daily range): BP systolic 137–174; BP diastolic 66–93
[2020-07-09 01:24] LABS: CREATINE KINASE 54 IU/L (29-168)
[2020-07-09] MEDS ORDERED: CLONIDINE HCL0.1 MG PO (02:39)
[2020-07-09] MEDS ORDERED: LOSARTAN POTAS100 MG PO (02:39)
[2020-07-09] MEDS ORDERED: ZANAFLEX2 M1 PO (02:39)
[2020-07-09] MEDS ORDERED: PERCOCET 10-321 EACH PO (02:39)
[2020-07-09] MEDS ORDERED: MAGNESIUM OXID400 MG PO (02:39)
[2020-07-09] MEDS ORDERED: HYDRALAZINE HCL10 MG PO (02:39)
[2020-07-09] MEDS ORDERED: MIRTAZAPINE15 MG PO (02:39)
[2020-07-09] MEDS ORDERED: HYDROCORTISONE10 MG PO (02:39)
[2020-07-09] MEDS ORDERED: ESTROGEN PO (02:39)
[2020-07-09] MEDS ORDERED: FLUTICASONE (02:39)
[2020-07-09] MEDS ORDERED: VITAMIN D (02:39)
[2020-07-09] MEDS ORDERED: ZOFRAN4 MG PO (02:39)
[2020-07-09] MEDS: ALBUTEROL/IPRATROPIUM 3 ML NEB NEB SCH ×6 (03:00→23:00)
[2020-07-09] MEDS ORDERED: OXYCODONE/ACETAMINOPHEN 5-325 1 EACH TABLET PO PRN (05:45)
[2020-07-09] MEDS: OXYCODONE HCL IR 5 MG TAB PO PRN (06:10)
[2020-07-09 06:13] LABS: BASOPHILS % 0.4 % (0.0-1.0); EOSINOPHILS % 0.4 % (0.0-6.0); HEMATOCRIT 33.2 % (34.2-44.1); HEMOGLOBIN 10.6 g/dL (12.0-16.0); LYMPHOCYTES # (AUTO) 2.1 (1.0-3.2); LYMPHOCYTES % 23.1 % (18.0-39.1); MEAN CORPUSCULAR HEMOGLOBIN 32.3 pg (28-32); MEAN CORPUSCULAR HGB CONC 31.9 g/dL (31-35); MEAN CORPUSCULAR VOLUME 101.2 fL (81-99); MONOCYTES # (AUTO) 0.6 (0.2-0.8); MONOCYTES % 7.1 % (4.4-11.3); NEUTROPHILS # (AUTO) 6.1 (2.1-6.9); NEUTROPHILS % 68.3 % (38.7-80.0); PLATELET COUNT 183 x10e3/uL (140-360); RED BLOOD COUNT 3.28 x10e6/uL (3.6-5.1); RED CELL DISTRIBUTION WIDTH 15.5 % (11.7-14.4)
[2020-07-09 06:44] LABS: ALANINE AMINOTRANSFERASE 20 IU/L (0-55); ALBUMIN 2.1 g/dL (3.5-5.0); ALBUMIN/GLOBULIN RATIO 0.5 (0.8-2.0); ALKALINE PHOSPHATASE 188 IU/L (40-150); ANION GAP 15.6 mmol/L (8-16); BLOOD UREA NITROGEN 8 mg/dL (7-26); BUN/CREATININE RATIO 13 (6-25); CALCIUM 7.4 mg/dL (8.4-10.2); CARBON DIOXIDE 20 mmol/L (22-29); CHLORIDE 105 mmol/L (98-107); CREATININE, SERUM 0.61 mg/dL (0.57-1.11); EST GLOMERULAR FILTRATION RATE > 60 ML/MIN (60-); GLUCOSE 72 mg/dL (74-118); POTASSIUM 3.6 mmol/L (3.5-5.1); SODIUM 137 mmol/L (136-145)
[2020-07-09 07:11] LABS: CREATINE KINASE MB 1.6 ng/mL (0-5.0)
[2020-07-09 07:32] LABS: PLATELET MORPHOLOGY COMMENT NORMAL
[2020-07-09] MEDS: FUROSEMIDE INJ 10 MG/ML 4 ML VIAL IV SCH ×2 (08:15→16:44)
[2020-07-09] MEDS ORDERED: ONDANSETRON HCL INJ 2MG/ML 2ML 2 MG/ML VIAL IV PRN (12:15)
[2020-07-09] MEDS ORDERED: TIZANIDINE HCL 4 MG TAB PO PRN (12:15)
[2020-07-09] MEDS ORDERED: HYDRALAZINE HCL 20 MG/ML VIAL IV PRN (12:15)
[2020-07-09] MEDS ORDERED: ACETAMINOPHEN 325 MG TAB PO PRN (12:15)
[2020-07-09] MEDS ORDERED: CEFTRIAXONE SOD 1 GM/NS 50 ML 50 ML IV SCH (12:30)
[2020-07-09] MEDS ORDERED: AZITHROMYCIN 500MG/NS 250 ML 250 ML IV SCH (13:00)
[2020-07-09] MEDS ORDERED: SODIUM CHLORIDE 0.9% 250ML 250 ML ONE (15:04)
[2020-07-09] MEDS: HYDRALAZINE HCL 10 MG TAB PO SCH ×2 (16:08→21:39)
[2020-07-09] MEDS: POTASSIUM CHLORIDE 20 MEQ TAB CR PO SCH (16:44)
[2020-07-09] MEDS: MIRTAZAPINE 15 MG TAB PO SCH (21:38)
[2020-07-09] MEDS: ROPINIROLE HCL 1 MG TAB PO SCH (21:38)
[2020-07-09] MEDS: GABAPENTIN 300 MG CAP PO SCH (21:38)
[2020-07-10] VITALS (9 sets, daily range): BP systolic 140–195; BP diastolic 72–110
[2020-07-10] MEDS: OXYCODONE HCL IR 5 MG TAB PO PRN ×4 (02:24→20:24)
[2020-07-10] MEDS: ALBUTEROL/IPRATROPIUM 3 ML NEB NEB SCH ×6 (03:00→23:05)
[2020-07-10] MEDS: LEVOTHYROXINE SODIUM 125 MCG TAB PO SCH (05:46)
[2020-07-10] MEDS: HYDRALAZINE HCL 10 MG TAB PO SCH ×3 (05:46→22:05)
[2020-07-10 05:54] LABS: BASOPHILS % 0.3 % (0.0-1.0); EOSINOPHILS # (AUTO) 0.1 (0.0-0.4); EOSINOPHILS % 0.3 % (0.0-6.0); HEMATOCRIT 40.1 % (34.2-44.1); HEMOGLOBIN 12.6 g/dL (12.0-16.0); LYMPHOCYTES # (AUTO) 3.8 (1.0-3.2); LYMPHOCYTES % 25.2 % (18.0-39.1); MEAN CORPUSCULAR HEMOGLOBIN 31.2 pg (28-32); MEAN CORPUSCULAR HGB CONC 31.4 g/dL (31-35); MEAN CORPUSCULAR VOLUME 99.3 fL (81-99); MONOCYTES # (AUTO) 1.1 (0.2-0.8); MONOCYTES % 7.5 % (4.4-11.3); NEUTROPHILS # (AUTO) 9.9 (2.1-6.9); NEUTROPHILS % 66.1 % (38.7-80.0); PLATELET COUNT 374 x10e3/uL (140-360); RED BLOOD COUNT 4.04 x10e6/uL (3.6-5.1); RED CELL DISTRIBUTION WIDTH 15.1 % (11.7-14.4)
[2020-07-10 06:12] LABS: ALANINE AMINOTRANSFERASE 23 IU/L (0-55); ALBUMIN 2.3 g/dL (3.5-5.0); ALBUMIN/GLOBULIN RATIO 0.5 (0.8-2.0); ALKALINE PHOSPHATASE 216 IU/L (40-150); BLOOD UREA NITROGEN 8 mg/dL (7-26); BUN/CREATININE RATIO 13 (6-25); CALCIUM 7.4 mg/dL (8.4-10.2); CARBON DIOXIDE 26 mmol/L (22-29); CHLORIDE 98 mmol/L (98-107); CHOLESTEROL 163 MD/DL (0-199); CREATININE, SERUM 0.64 mg/dL (0.57-1.11); EST GLOMERULAR FILTRATION RATE > 60 ML/MIN (60-); GLUCOSE 70 mg/dL (74-118); HDL CHOLESTEROL 55 MG/DL (40-60); LDL CHOLESTEROL 77 MG/DL (60-130); MAGNESIUM 1.3 MG/DL (1.3-2.1); SODIUM 138 mmol/L (136-145); TRIGLYCERIDES 157 MG/DL (0-149)
[2020-07-10 06:33] LABS: THYROID STIMULATING HORMONE 3.608 uIU/mL (0.350-4.940)
[2020-07-10] MEDS: HYDROCORTISONE 10 MG TAB PO SCH (08:24)
[2020-07-10] MEDS: FLUTICASONE PROPIONATE NASAL SPRAY NS SCH (08:41)
[2020-07-10] MEDS: LOSARTAN POTASSIUM 100 MG TAB PO SCH (08:46)
[2020-07-10] MEDS: PANTOPRAZOLE SOD 40 MG TABEC PO SCH (08:46)
[2020-07-10] MEDS: POTASSIUM CHLORIDE 20 MEQ TAB CR PO SCH ×2 (08:47→16:19)
[2020-07-10] MEDS: MAGNESIUM OXIDE 400 MG TAB PO SCH (08:47)
[2020-07-10] MEDS: MONTELUKAST SODIUM 10 MG TAB PO SCH (08:47)
[2020-07-10] MEDS ORDERED: ESTROGEN PO SCH (09:00)
[2020-07-10] MEDS ORDERED: PREDNISONE 5 MG TAB PO ONE (12:30)
[2020-07-10] MEDS: PIPERACILLIN/TAZO 2.25 GM 50 ML IV SCH ×2 (12:34→18:09)
[2020-07-10] MEDS: CLONIDINE HCL 0.1 MG TAB PO PRN (12:35)
[2020-07-10] MEDS ORDERED: PHENAZOPYRIDINE HCL 100 MG TAB PO PRN (14:45)
[2020-07-10] MEDS ORDERED: DICYCLOMINE HCL 10 MG CAP PO ONE (15:15)
[2020-07-10] MEDS ORDERED: AZITHROMYCIN 500MG/NS 250 ML 250 ML IV SCH (16:00)
[2020-07-10] MEDS: OXYCODONE/ACETAMINOPHEN 5-325 1 EACH TABLET PO PRN ×2 (16:30→20:24)
[2020-07-10] MEDS ORDERED: OXYCODONE/ACETAMINOPHEN 5-325 1 EACH TABLET PO PRN (16:30)
[2020-07-10] MEDS ORDERED: METOPROLOL TARTRATE INJ 1 MG/ML VIAL IV PRN (17:00)
[2020-07-10] MEDS: GABAPENTIN 300 MG CAP PO SCH (22:05)
[2020-07-10] MEDS: ROPINIROLE HCL 1 MG TAB PO SCH (22:05)
[2020-07-10] MEDS: MIRTAZAPINE 15 MG TAB PO SCH (22:05)
[2020-07-11] VITALS: BP 167/71
[2020-07-11] MEDS: PIPERACILLIN/TAZO 2.25 GM 50 ML IV SCH ×3 (00:03→11:59)
[2020-07-11 04:00] VITALS: BP 178/98
[2020-07-11] MEDS: HYDRALAZINE HCL 10 MG TAB PO SCH (05:45)
[2020-07-11] MEDS: LEVOTHYROXINE SODIUM 125 MCG TAB PO SCH (05:45)
[2020-07-11] MEDS: OXYCODONE HCL IR 5 MG TAB PO PRN (05:45)
[2020-07-11] MEDS: OXYCODONE/ACETAMINOPHEN 5-325 1 EACH TABLET PO PRN (05:45)
[2020-07-11] MEDS: ALBUTEROL/IPRATROPIUM 3 ML NEB NEB SCH ×3 (07:00→15:00)
[2020-07-11] MEDS ORDERED: LASIX40 MG PO (07:15)
[2020-07-11] MEDS ORDERED: KLOR-CON M2020 MEQ PO (07:15)
[2020-07-11] MEDS ORDERED: PYRIDIUM100 MG PO (07:15)
[2020-07-11 07:20] LABS: BASOPHILS % 0.3 % (0.0-1.0); EOSINOPHILS % 0.4 % (0.0-6.0); HEMATOCRIT 31.2 % (34.2-44.1); HEMOGLOBIN 9.8 g/dL (12.0-16.0); LYMPHOCYTES # (AUTO) 2.2 (1.0-3.2); LYMPHOCYTES % 19.9 % (18.0-39.1); MEAN CORPUSCULAR HEMOGLOBIN 31.1 pg (28-32); MEAN CORPUSCULAR HGB CONC 31.4 g/dL (31-35); MONOCYTES # (AUTO) 0.7 (0.2-0.8); MONOCYTES % 6.6 % (4.4-11.3); NEUTROPHILS # (AUTO) 8.1 (2.1-6.9); NEUTROPHILS % 72.3 % (38.7-80.0); PLATELET COUNT 283 x10e3/uL (140-360); RED BLOOD COUNT 3.15 x10e6/uL (3.6-5.1)
[2020-07-11 07:55] LABS: ALANINE AMINOTRANSFERASE 18 IU/L (0-55); ALBUMIN 1.9 g/dL (3.5-5.0); ALBUMIN/GLOBULIN RATIO 0.5 (0.8-2.0); ALKALINE PHOSPHATASE 179 IU/L (40-150); ANION GAP 15.1 mmol/L (8-16); BLOOD UREA NITROGEN 9 mg/dL (7-26); BUN/CREATININE RATIO 14 (6-25); CALCIUM 7.5 mg/dL (8.4-10.2); CARBON DIOXIDE 26 mmol/L (22-29); CHLORIDE 101 mmol/L (98-107); CREATININE, SERUM 0.66 mg/dL (0.57-1.11); EST GLOMERULAR FILTRATION RATE > 60 ML/MIN (60-); GLUCOSE 87 mg/dL (74-118); POTASSIUM 4.1 mmol/L (3.5-5.1); SODIUM 138 mmol/L (136-145)
[2020-07-11 08:34] VITALS: BP 168/86
[2020-07-11 08:35] VITALS: BP 168/86
[2020-07-11] MEDS: PANTOPRAZOLE SOD 40 MG TABEC PO SCH (08:39)
[2020-07-11] MEDS: FLUTICASONE PROPIONATE NASAL SPRAY NS SCH (08:40)
[2020-07-11] MEDS: HYDROCORTISONE 10 MG TAB PO SCH (08:45)
[2020-07-11] MEDS: LOSARTAN POTASSIUM 100 MG TAB PO SCH (08:45)
[2020-07-11] MEDS: MAGNESIUM OXIDE 400 MG TAB PO SCH (08:46)
[2020-07-11] MEDS: MONTELUKAST SODIUM 10 MG TAB PO SCH (08:46)
[2020-07-11] MEDS: POTASSIUM CHLORIDE 20 MEQ TAB CR PO SCH (08:46)
[2020-07-11] MEDS ORDERED: CEFUROXIME250 MG PO (09:17)
[2020-07-11 11:18] VITALS: BP 194/87
[2020-07-11] MEDS ORDERED: HYDRALAZINE HCL25 MG PO (11:49)
[2020-07-11] MEDS: CLONIDINE HCL 0.1 MG TAB PO PRN (11:59)
[2020-07-11] MEDS ORDERED: HYDRALAZINE HCL 25 MG TAB PO SCH ×2 (12:15→14:00)
[2020-07-11] MEDS ORDERED: ONDANSETRON HCL 4 MG ORAL DISINTEGRATING TAB PO PRN (12:45)
[2020-07-11 15:31] VITALS: BP 144/76
== END 2020-07-11 16:33 | disposition home health service (06) | DRG 871 ==
LOC: ER 21:21 → ERHOLD 23:27 → MED/SURG3 23:56
PROVIDERS: ADMIT Internal Medicine; ATTEND Internal Medicine
DX: A41.9 Sepsis, unspecified organism (principal); L89.154 Pressure ulcer of sacral region, stage 4; I50.33 Acute on chronic diastolic (congestive) heart failure; J69.0 Pneumonitis due to inhalation of food and vomit; J96.01 Acute respiratory failure with hypoxia; T83.518A Infection and inflammatory reaction due to other urinary catheter, initial encounter; E44.0 Moderate protein-calorie malnutrition; N39.0 Urinary tract infection, site not specified; G82.20 Paraplegia, unspecified; I11.0 Hypertensive heart disease with heart failure; F41.9 Anxiety disorder, unspecified; F32.9 Major depressive disorder, single episode, unspecified; E66.9 Obesity, unspecified; Z68.31 Body mass index [BMI] 31.0-31.9, adult; E03.9 Hypothyroidism, unspecified; N31.9 Neuromuscular dysfunction of bladder, unspecified; Z11.59 Encounter for screening for other viral diseases
CPT/HCPCS: 36415; 71045; 71250; 74230; 78306; 80053; 80061; 81001; 82550; 82553; 83605; 83735; 83880; 84443; 84484; 85025; 87040; 87086; 87186; 93005; 93306; 94640; 97139; 99251; 99284; A9503; J0456; J0696; J1940; J2543; J7050; J7512; U0002

== ENCOUNTER 2020-10-07 16:01 | Emergency (ER) | payer MEDICARE, OTHER ==
[~2020-10-07] VITALS: Ht 157.5 cm; Wt 78.5 kg
[~2020-10-07 16:01] MED LIST changes: +CEFUROXIME250 MG PO; +CLONIDINE HCL0.1 MG PO; +ESTROGEN PO; +FLUTICASONE; +HYDRALAZINE HCL10 MG PO; +HYDRALAZINE HCL25 MG PO; +HYDROCORTISONE10 MG PO; +KLOR-CON M2020 MEQ PO; +LASIX40 MG PO; +LOSARTAN POTAS100 MG PO; +MAGNESIUM OXID400 MG PO; +MIRTAZAPINE15 MG PO; +PERCOCET 10-321 EACH PO; +PYRIDIUM100 MG PO; +VITAMIN D; +ZANAFLEX2 M1 PO; +ZOFRAN4 MG PO
[2020-10-07 19:05] LABS: CLARITY,URINE CLOUDY (CLEAR); COLOR,URINE YELLOW (YELLOW)
[2020-10-07 19:06] LABS: LEUKOCYTE ESTERASE ,URINE SMALL (NEGATIVE); NITRITE,URINE POSITIVE (NEGATIVE); PROTEIN,URINE DIPSTICK >=300 (NEGATIVE)
[2020-10-07 19:07] LABS: KETONES,URINE NEGATIVE (NEGATIVE); URINE UROBILINOGEN 0.2 mg/dL (0.2 - 1)
[2020-10-07 19:18] LABS: RBC,URINE 0-5 /HPF (0-5); WBC,URINE (MAN) 0-5 /HPF (0-5)
[2020-10-07 19:19] LABS: BACTERIA,URINE FEW /HPF; EPITHELIAL CELLS,URINE FEW /LPF
[2020-10-07] MEDS ORDERED: KEFLEX500 MG PO (19:43)
== END 2020-10-07 20:35 ==
LOC: ER 16:10
DX: M54.5 Low back pain (principal); N39.0 Urinary tract infection, site not specified; G89.29 Other chronic pain; I10 Essential (primary) hypertension; E78.5 Hyperlipidemia, unspecified; I50.9 Heart failure, unspecified; G62.9 Polyneuropathy, unspecified; J45.909 Unspecified asthma, uncomplicated; G25.81 Restless legs syndrome; G82.20 Paraplegia, unspecified; N80.9 Endometriosis, unspecified
CPT/HCPCS: 72131; 81001; 99284

== ENCOUNTER 2021-07-31 08:42 | Inpatient (IN) | payer MEDICARE, OTHER ==
[~2021-07-31] VITALS: Ht 157.5 cm; Wt 59.0 kg
[~2021-07-31 08:42] MED LIST changes: +KEFLEX500 MG PO
[2021-07-31 09:19] LABS: BASOPHILS % 0.3 % (0.0-1.0); EOSINOPHILS # (AUTO) 0.1 (0.0-0.4); HEMATOCRIT 31.2 % (34.2-44.1); HEMOGLOBIN 9.7 g/dL (12.0-16.0); LYMPHOCYTES # (AUTO) 1.6 (1.0-3.2); LYMPHOCYTES % 18.2 % (18.0-39.1); MEAN CORPUSCULAR HGB CONC 31.1 g/dL (31-35); MEAN CORPUSCULAR VOLUME 90.2 fL (81-99); MONOCYTES # (AUTO) 0.6 (0.2-0.8); MONOCYTES % 6.1 % (4.4-11.3); NEUTROPHILS # (AUTO) 6.6 (2.1-6.9); PLATELET COUNT 429 x10e3/uL (140-360); RED BLOOD COUNT 3.46 x10e6/uL (3.6-5.1); RED CELL DISTRIBUTION WIDTH 15.1 % (11.7-14.4)
[2021-07-31 09:35] LABS: CLARITY,URINE CLEAR (CLEAR); COLOR,URINE YELLOW (YELLOW); KETONES,URINE NEGATIVE (NEGATIVE); LEUKOCYTE ESTERASE ,URINE SMALL (NEGATIVE); NITRITE,URINE NEGATIVE (NEGATIVE); PROTEIN,URINE DIPSTICK 1+ (NEGATIVE); URINE UROBILINOGEN 0.2 mg/dL (0.2 - 1)
[2021-07-31 09:43] LABS: INR 1.05; PARTIAL THROMBOPLASTIN TIME 34.2 seconds (23.8-35.5); PROTHROMBIN TIME 14.5 seconds (11.9-14.5)
[2021-07-31 09:48] LABS: BACTERIA,URINE FEW /HPF; EPITHELIAL CELLS,URINE FEW /LPF; RBC,URINE 0-5 /HPF (0-5)
[2021-07-31 09:49] LABS: YEAST,URINE FEW
[2021-07-31] MEDS ORDERED: MEROPENEM 1 GM VIAL ONE (10:33)
[2021-07-31] MEDS ORDERED: SODIUM CHLORIDE 0.9% 100 ML ONE (10:34)
[2021-07-31 10:49] LABS: ALBUMIN 2.6 g/dL (3.5-5.0); ALBUMIN/GLOBULIN RATIO 0.5 (0.8-2.0); ANION GAP 16.9 mmol/L (8-16); CALCIUM 8.6 mg/dL (8.4-10.2); CREATININE, SERUM 0.95 mg/dL (0.57-1.11); MAGNESIUM 2.2 MG/DL (1.3-2.1); POTASSIUM 4.9 mmol/L (3.5-5.1)
[2021-07-31 10:55] LABS: CREATINE KINASE MB 1.1 ng/mL (0-5.0)
[2021-07-31] MEDS ORDERED: NIFEDIPINE ER30 M1 PO (10:59)
[2021-07-31] MEDS ORDERED: BUSPIRONE HCL10 MG PO (10:59)
[2021-07-31] MEDS ORDERED: METHOCARBAMOL500 MG PEG (10:59)
[2021-07-31] MEDS ORDERED: REMERON15 MG PO (10:59)
[2021-07-31] MEDS ORDERED: MULTI-VITAMIN1 EACH PO (10:59)
[2021-07-31] MEDS ORDERED: CHOLECALCIFEROL PO (10:59)
[2021-07-31] MEDS ORDERED: ROPINIROLE HCL4 MG PEG (10:59)
[2021-07-31] MEDS ORDERED: OMEGA-31000 MG PO (10:59)
[2021-07-31] MEDS ORDERED: SYNTHROID125 MCG PO (10:59)
[2021-07-31] MEDS ORDERED: MAGNESIUM OXID400 MG PO (10:59)
[2021-07-31] MEDS ORDERED: SENOKOT-S TABL1 EACH PO (10:59)
[2021-07-31] MEDS ORDERED: CARVEDILOL12.5 MG PO (10:59)
[2021-07-31] MEDS ORDERED: FLONASE ALLERG9.9 ML INH (10:59)
[2021-07-31] MEDS ORDERED: HYDRALAZINE HCL25 MG PO (10:59)
[2021-07-31] MEDS ORDERED: ZOFRAN4 MG PO (10:59)
[2021-07-31] MEDS ORDERED: OMEPRAZOLE40 MG PO (10:59)
[2021-07-31] MEDS ORDERED: VITAMIN B-121000 MCG PO (10:59)
[2021-07-31] MEDS ORDERED: MONTELUKAST SOD10 MG PO (10:59)
[2021-07-31] MEDS ORDERED: SYMBICORT 80-10.2 GM INH (10:59)
[2021-07-31] MEDS ORDERED: ASCORBIC ACID500 MG PO (10:59)
[2021-07-31] MEDS ORDERED: COMBIVENT RESPIM4 GM IH (10:59)
[2021-07-31] MEDS ORDERED: PERCOCET 5-3251 EACH PO ×2 (10:59)
[2021-07-31] MEDS ORDERED: CYMBALTA30 MG PO (10:59)
[2021-07-31] MEDS ORDERED: MELATONIN3 MG PO (10:59)
[2021-07-31] MEDS ORDERED: ZINC50 M1 PO (10:59)
[2021-07-31] MEDS ORDERED: MEROPENEM 1 GM in SODIUM CHLORIDE 0.9% 100 ML IV ONE (11:00)
[2021-07-31] MEDS ORDERED: ONDANSETRON HCL INJ 2MG/ML 2ML 2 MG/ML VIAL IV PRN (11:00)
[2021-07-31 13:46] VITALS: BP 139/82
[2021-07-31] MEDS ORDERED: IPRATROPIUM/ALBUTEROL SULFATE 4 GM INH INH PRN (14:15)
[2021-07-31 14:45] VITALS: BP 139/82
[2021-07-31] MEDS ORDERED: INFLUENZA VIRUS VAC SPLIT INJ 0.5 ML SYR IM SCH (14:58)
[2021-07-31 15:34] VITALS: BP 116/58
[2021-07-31] MEDS: BUSPIRONE HCL 10 MG TABLET PO SCH (17:28)
[2021-07-31] MEDS: OMEGA 3 POLYUNSAT FATTY ACIDS 1000 MG SOFTGEL PO SCH (17:28)
[2021-07-31] MEDS: CARVEDILOL 12.5 MG TAB PO SCH (17:29)
[2021-07-31] MEDS: BUDESONIDE/FORMOTEROL FUMARATE 80/4.5MCG 6.9 GM INH AEROSOL IH SCH (18:12)
[2021-07-31 20:03] VITALS: BP 136/69
[2021-07-31 20:08] VITALS: BP 136/69
[2021-07-31] MEDS ORDERED: MELATONIN 3 MG TAB PO SCH (21:00)
[2021-07-31] MEDS ORDERED: DULOXETINE HCL 30 MG DELAYED RELEASE PO SCH (21:00)
[2021-07-31] MEDS: HYDRALAZINE HCL 25 MG TAB PO SCH (21:21)
[2021-08-01 00:59] VITALS: BP 138/72
[2021-08-01 04:27] VITALS: BP 128/63
[2021-08-01] MEDS: HYDRALAZINE HCL 25 MG TAB PO SCH ×2 (05:45→13:54)
[2021-08-01] MEDS ORDERED: LEVOTHYROXINE SODIUM 125 MCG TAB PO SCH (06:00)
[2021-08-01 06:10] LABS: BASOPHILS % 0.3 % (0.0-1.0); EOSINOPHILS # (AUTO) 0.1 (0.0-0.4); EOSINOPHILS % 1.1 % (0.0-6.0); HEMATOCRIT 31.3 % (34.2-44.1); HEMOGLOBIN 9.2 g/dL (12.0-16.0); LYMPHOCYTES # (AUTO) 1.9 (1.0-3.2); LYMPHOCYTES % 19.7 % (18.0-39.1); MEAN CORPUSCULAR HGB CONC 29.4 g/dL (31-35); MEAN CORPUSCULAR VOLUME 95.1 fL (81-99); MONOCYTES # (AUTO) 0.7 (0.2-0.8); MONOCYTES % 7.1 % (4.4-11.3); NEUTROPHILS % 71.3 % (38.7-80.0); PLATELET COUNT 407 x10e3/uL (140-360); RED BLOOD COUNT 3.29 x10e6/uL (3.6-5.1); RED CELL DISTRIBUTION WIDTH 15.1 % (11.7-14.4)
[2021-08-01 06:11] LABS: ALBUMIN 2.4 g/dL (3.5-5.0); ALBUMIN/GLOBULIN RATIO 0.5 (0.8-2.0); ANION GAP 17.2 mmol/L (8-16); CALCIUM 8.4 mg/dL (8.4-10.2); CREATININE, SERUM 1.04 mg/dL (0.57-1.11); POTASSIUM 5.2 mmol/L (3.5-5.1)
[2021-08-01 07:00] VITALS: BP 107/51
[2021-08-01] MEDS: BUDESONIDE/FORMOTEROL FUMARATE 80/4.5MCG 6.9 GM INH AEROSOL IH SCH ×2 (07:13→08:48)
[2021-08-01 08:15] VITALS: BP 107/51
[2021-08-01] MEDS: OMEGA 3 POLYUNSAT FATTY ACIDS 1000 MG SOFTGEL PO SCH (08:44)
[2021-08-01] MEDS: BUSPIRONE HCL 10 MG TABLET PO SCH (08:44)
[2021-08-01] MEDS: CARVEDILOL 12.5 MG TAB PO SCH (08:45)
[2021-08-01] MEDS ORDERED: CYANOCOBALAMIN 1,000 MCG TAB PO SCH (09:00)
[2021-08-01] MEDS ORDERED: ASCORBIC ACID 500 MG TAB PO SCH (09:00)
[2021-08-01] MEDS ORDERED: NIFEDIPINE CR 30 MG TAB PO SCH (09:00)
[2021-08-01] MEDS ORDERED: MAGNESIUM OXIDE 400 MG TAB PO SCH (09:00)
[2021-08-01] MEDS ORDERED: PANTOPRAZOLE SOD 40 MG TABEC PO SCH (09:00)
[2021-08-01] MEDS ORDERED: SODIUM CHLORIDE 0.45% 1,000 ML IV ONE (10:30)
[2021-08-01 11:34] VITALS: BP 114/56
[2021-08-01] MEDS ORDERED: ONDANSETRON HCL 4 MG ORAL DISINTEGRATING TAB PO PRN (13:45)
== END 2021-08-01 15:35 | DRG 698 ==
LOC: ER 08:56 → ERHOLD 10:47 → MED/SURG3 12:27
PROVIDERS: ADMIT Internal Medicine; ATTEND Internal Medicine
DX: T83.518A Infection and inflammatory reaction due to other urinary catheter, initial encounter (principal); L89.154 Pressure ulcer of sacral region, stage 4; G93.41 Metabolic encephalopathy; E44.0 Moderate protein-calorie malnutrition; I50.32 Chronic diastolic (congestive) heart failure; G82.22 Paraplegia, incomplete; Y73.1 Therapeutic (nonsurgical) and rehabilitative gastroenterology and urology devices associated with adverse incidents; Z68.23 Body mass index [BMI] 23.0-23.9, adult; I11.0 Hypertensive heart disease with heart failure; N31.9 Neuromuscular dysfunction of bladder, unspecified; M46.40 Discitis, unspecified, site unspecified; G47.00 Insomnia, unspecified; F41.9 Anxiety disorder, unspecified; F32.A Depression, unspecified; G62.9 Polyneuropathy, unspecified; Z20.822 Contact with and (suspected) exposure to COVID-19
CPT/HCPCS: 36415; 70450; 71045; 80053; 81001; 82550; 82553; 83735; 83880; 84484; 85025; 85610; 85730; 87040; 87086; 87400; 93005; 96360; 99251; 99284; J2185; J2405; J7050; U0002